=== PATIENT | male | born 1950 | race African-American/Black ===

== ENCOUNTER 2019-09-27 01:56 | Inpatient (IN) ==
--- NOTE | 2019-09-27 02:26 | PROVIDER DOCUMENTATION ---
HPI-General Adult - General Chief Complaint: Altered Mental Status Stated Complaint: ams Time Seen by Provider: 09/27/19 01:59 Source: patient, family Allergies/Adverse Reactions: Patient Allergies Allergy/AdvReac Type Severity Reaction Status Date / Time cephalexin [From Keflex] Allergy ITCHING Verified 09/27/19 03:52 Home Medications: Home Medication List Medication Instructions Recorded Confirmed Last Taken Type Gabapentin 800 mg PO TID 04/30/17 09/27/19 09/26/19 History Allopurinol 100 mg PO DAILY 09/27/19 09/27/19 09/26/19 History Aspirin 81 mg PO DAILY 09/27/19 09/27/19 09/26/19 History Atorvastatin Calcium 20 mg PO DAILY 09/27/19 09/27/19 09/26/19 History Carvedilol [Coreg] 12.5 mg PO DAILY 09/27/19 09/27/19 09/26/19 History Hydralazine [Apresoline] 25 mg PO TID 09/27/19 09/27/19 09/26/19 History Isosorbide Mononitrate E.r. [Imdur] 1 tab PO DAILY 09/27/19 09/27/19 09/26/19 History Pantoprazole Sodium [Protonix] 40 mg PO DAILY 09/27/19 09/27/19 09/26/19 History Pramipexole Di-HCl [Pramipexole 1 tab PO DAILY 09/27/19 09/27/19 09/26/19 History Dihydrochloride] Quetiapine [Seroquel] 50 mg PO QHS 09/27/19 09/27/19 09/26/19 History Sacubitril/Valsartan [Entresto 24 1 tab PO BID 09/27/19 09/27/19 09/26/19 History mg-26 mg Tablet] Tamsulosin [Flomax] 0.4 mg PO DAILY 09/27/19 09/27/19 09/26/19 History Ticagrelor [Brilinta] 90 mg PO BID 09/27/19 09/27/19 09/26/19 History Torsemide 10 mg PO DAILY 09/27/19 09/27/19 09/26/19 History - History of Present Illness -Gen Adult Nature of Presenting Problems: Patient brought in by EMS due to confusion and altered mental status. Patient denies any current symptoms except for an abrasion to his right chest from last week. His daughter states that he was well this morning, but this evening he became acutely forgetful, including not knowing where the bathroom in the house was. He also tried to wander out at night. She denies him having any recent fever, or other symptoms. Review of Systems - Adult - REVIEW OF SYSTEMS - ADULT ROS:: ROS per family Constitutional: reports: no symptoms reported Eyes: reports: no symptoms reported Ears, Nose, Mouth & Throat: reports: no symptoms reported Cardiovascular: reports: no symptoms reported Respiratory: reports: no symptoms reported Gastrointestinal: reports: no symptoms reported Genitourinary: reports: no symptoms reported Musculoskeletal: reports: no symptoms reported Integumentary: reports: no symptoms reported Neurological: reports: no symptoms reported (except as reported on HPI) Psychiatric: reports: no symptoms reported (except as reported on HPI) Endocrine: reports: no symptoms reported Hematologic/Lymphatic: reports: no symptoms reported Allergic/Immunologic: reports: no symptoms reported All Other Systems: Reviewed and Negative Past History - Adult - PAST MEDICAL HISTORY-ADULT Review of Records: reports: Old Records Reviewed Physical Exam-General - PHYSICAL EXAM-ADULT Initial Vital Signs Reviewed: Yes - CONSTITUTIONAL General Appearance: appears well, alert, no apparent distress - EYES Eyes: PERRL/EOMI, pink conjunctivae - HEAD, EARS, NOSE, MOUTH & THROAT HENMT: normocephalic/atraumatic, moist mucous membranes - NECK Neck: non-tender, full range of motion - RESPIRATORY Respiratory: chest non-tender, lungs clear - CARDIOVASCULAR Cardiovascular: normal peripheral pulses, regular rate, rhythm. negative: no edema (bilat LE brawny edema) - GASTROINTESTINAL (ABDOMEN) Abdominal Exam: non tender, soft - LYMPHATIC Lymphatic: no adenopathy - MUSCULOSKELETAL Back Exam: normal inspection, no CVA tenderness Extremity: normal range of motion, non-tender - SKIN Integumentary: normal color, other (right flank poorly healing abrasion) - NEUROLOGIC Neurologic: water valve mechanic II-XII nml as tested, grossly normal, no motor/sensory deficits, other (bilat pill rolling tremor L>R) - PSYCHIATRIC Psych/Mental Status: disoriented x 3. negative: normal mood/affect (flat), normal thought content, oriented x 3 (confused), paranoid Progress - PLAN OF CARE/RESULTS Progress/Plan/Lab Results: Vital Signs - 8 hr 09/27/19 02:02 Temperature 98.9 F Pulse Rate 87 Respiratory Rate 20 Blood Pressure 188/97 O2 Sat by Pulse Oximetry 98 Orders Category Date Time Status Finger Stick Blood Sugar (ED) DIRECTED Care 09/27/19 02:11 Active Nursing- Obtain EKG once Care 09/27/19 02:11 Active CHEST-PORTABLE [RAD] Stat Exams 09/27/19 02:[address] HEAD W/O CONTRAST [CT] Stat Exams 09/27/19 02:12 Ordered ALCOHOL BLOOD Stat Lab 09/27/19 02:15 Ordered AMMONIA [CHEM] Stat Lab 09/27/19 02:19 Ordered CBC WITH ELECTRONIC DIFF [HEME] Stat Lab 09/27/19 02:15 Ordered COMPREHENSIVE METABOLIC PANEL [CHEM] Stat Lab 09/27/19 02:15 Ordered MAGNESIUM [CHEM] Stat Lab 09/27/19 02:15 Ordered PROTIME WITH INR [COAG] Stat Lab 09/27/19 02:15 Ordered PTT [COAG] Stat Lab 09/27/19 02:15 Ordered TROPONIN T Stat Lab 09/27/19 02:15 Ordered URINALYSIS W/POSS RFLX CULT [URINALYSIS] Stat Lab 09/27/19 02:11 Uncollected Upon reeval, patient was unchanged. Still appears confused, but in no distress. CT head: no acute findings per radiologist CXR: no acute process on prelim by EDMD 0600: d/w Dr. John with plan for admission. he requested an ABG, UDS and CT Thorax w/o contrast. Result Diagrams: 09/27/19 03:20 09/27/19 03:20 - EKG 1 EKG Interpretation (*Must complete 3 of following elements*): Abnormal Rate: 88 Rhythm: atrial fib [place]: left (no ectopy) Departure - Departure Date of Disposition Decision: 09/27/19 Time of Disposition Decision: 06:00 DIAGNOSIS: Atrial fibrillation with controlled ventricular rate Altered mental state Qualifiers: Altered mental status type: disorientation Qualified Code(s): R41.0 - Disorientation, unspecified Disposition: ADMITTED INPATIENT 09 Certified Medical Emergency: Emergent Condition: Serious Referrals and Follow-Ups: None,PCP [Primary Care Provider] - - Critical Care Note This patient required my direct & personal management of CC.: No Attestation - Physician/ HANG Attestation Patient care was provided by Advanced Practice Provider:: No The physician spent face to face time with patient:: Yes Advanced Practice Provider documentation review:: Supervising physician onsite and consulted in the evaluation and care of this patient. The physician did have a face to face encounter with the patient.
[2019-09-27 03:30] LABS: URINE SOURCE CLEAN CATCH
[2019-09-27 03:33] LABS: BASO# 0.02 X1000 (0.0-0.2); BASO% 0.3 % (0.0-0.8); EOS# 0.14 X1000 (0.0-0.7); EOS% 1.9 % (0.0-10.0); HEMOGLOBIN 9.7 g/dL (14.0-18.0); LYMPH% 13.3 % (20.5-51.1); MCH 31.3 PG (27-31); MCHC 32.3 g/dL (33-37); MCV 96.8 FL (81-99); MONO# 0.59 X1000 (0.11-0.59); MONO% 7.9 % (1.7-9.3); MPV 12.7 FL (7.4-10.4); NEUT# 5.76 X1000 (1.4-6.5); NEUT% 76.6 % (42.2-75.2); PLT 170 X1000 (130-400); RDW 14.5 % (11.5-14.5); WBC 7.51 X1000 (4.8-10.8)
[2019-09-27 03:34] LABS: BILIRUBIN URINE NEGATIVE (NEGATIVE); BLOOD URINE MODERATE (NEGATIVE); COLOR YELLOW; GLUCOSE URINE NEGATIVE (NEGATIVE); KETONE URINE 20 mg/dL (NEGATIVE); LEUKOCYTES URINE NEGATIVE (NEGATIVE); NITRITE URINE NEGATIVE (NEGATIVE); PH URINE 6.5; PROTEIN URINE >600 mg/dL (NEGATIVE); SP GRAVITY URINE 1.024; TURBIDITY URINE CLEAR (CLEAR); UROBILINOGEN URINE 2 mg/dL (NORMAL)
[2019-09-27 03:35] LABS: UR EPITHELIAL CELLS <10 /HPF (<10); URINE BACTERIA NEGATIVE /HPF; URINE RBC 20-40 /HPF (<10); URINE WBC <10 /HPF (<10)
[2019-09-27 03:40] LABS: INR 1.32; PROTIME 16.6 Seconds (11.0-16.0)
[2019-09-27 03:41] LABS: PTT 35.2 Seconds (22.3-41.8)
[2019-09-27 04:09] LABS: ALB/GLOB RATIO 1.3; ALBUMIN 3.6 g/dL (3.5-5.0); CALCIUM 9.2 mg/dL (8.8-10.2); CREATININE 1.5 mg/dL (0.7-1.2); MAGNESIUM 1.7 mg/dL (1.5-2.7); POTASSIUM 3.9 mmol/L (3.5-5.1); TOTAL BILIRUBIN 1.28 mg/dL (0.20-1.00); TOTAL PROTEIN 6.4 g/dL (6.3-8.3)
[2019-09-27 06:09] LABS: ALLEN TEST YES; BLOOD TYPE ARTERIAL; HCO3-(ACT) 23.3 mmoll (20.0-26.0); METHB 1.3 % (0.0-1.5); MODALITY ROOM AIR; O2(CT) 12.5 mL/dL (15.0-23.0); O2HB 94.7 % (95.0-99.0); PCO2(98.6) 33 mmHg (35-45); PO2(98.6) 76 mmHg (60-100); SAMPLE BLOOD; SAO2 97.8 % (95.0-100.0); THB 9.3 g/dL (11.5-17.4); pH(98.6) 7.43 (7.35-7.45)
--- NOTE | 2019-09-27 06:51 | Diag Imaging Result Doc PS360 ---
CT HEAD W/O CONTRAST - 09/27/2019 INDICATION: ams COMPARISON: None FINDINGS: The ventricles and sulci are normal in size and contour. No intracranial mass or hemorrhage. There is mild periventricular white matter chronic microvascular ischemia in the cerebral hemispheres, notably in the parietal lobes. The skull is intact. There are several bilateral mucosal retention cysts in the maxillary sinuses. No air-fluid levels. Small punctate metallic foreign bodies throughout the superior scalp. IMPRESSION: No acute disease. This exam was performed using automated exposure control, adjustment of mA or kV according to patient size, and/or use of iterative reconstruction technique Electronically signed by Von Schneider 09/27/2019 6:49 AM
--- NOTE | 2019-09-27 08:04 | Diag Imaging Result Doc PS360 ---
CT THORAX W/O CONTRAST - 09/27/2019 INDICATION: right base COMPARISON: None FINDINGS: There is no adenopathy. There is mild cardiomegaly. There is extensive, triple-vessel calcified coronary artery disease. There is some bulkiness of the left adrenal gland. Otherwise upper abdominal images are normal. There is a moderate right and trace left pleural effusion. There is hazy interstitial pulmonary edema in the lung bases with smooth intralobular septal thickening as well. Airways are clear. There are moderate degenerative changes of the spine. No acute or suspicious bony lesion. IMPRESSION: Congestive heart failure. Bilateral pleural effusions right greater than left. This exam was performed using automated exposure control, adjustment of mA or kV according to patient size, and/or use of iterative reconstruction technique Electronically signed by Von Schneider 09/27/2019 8:02 AM
--- NOTE | 2019-09-27 08:04 | Diag Imaging Result Doc PS360 ---
CHEST-PORTABLE - 09/27/2019 INDICATION: ams COMPARISON: 04/30/2017 FINDINGS: There is cardiomegaly and pulmonary vascular congestion. There is central interstitial pulmonary edema. There are small bilateral pleural effusions right greater than left. IMPRESSION: Congestive heart failure. Electronically signed by Von Schneider 09/27/2019 8:02 AM
[2019-09-27] MEDS ORDERED: TYLENOL PO PRN (08:48)
[2019-09-27] MEDS ORDERED: ZOFRAN IV PRN (08:48)
[2019-09-27] MEDS ORDERED: ZYLOPRIM PO SCH (09:00)
[2019-09-27] MEDS ORDERED: NEURONTIN PO SCH (09:00)
[2019-09-27] MEDS ORDERED: DEMADEX PO SCH (09:00)
[2019-09-27] MEDS ORDERED: LASIX IV ONE (10:46)
--- NOTE | 2019-09-27 10:48 | EKG Report ---
Test Performed on : 09/27/2019 02:13:25 AM Test Reason : ED. NO EKG ORDER FOR MUSE Blood Pressure : / mmHG Vent. Rate : 088 BPM Atrial Rate : 097 BPM P-R Int : 000 ms QRS Dur : 086 ms QT Int : 396 ms P-R-T Axes : 000 -50 059 degrees QTc Int : 479 ms Atrial fibrillation. with premature ventricular or aberrantly conducted complexes. Left axis deviation Anterior infarct , age undetermined Abnormal ECG No previous ECGs available Unconfirmed Result
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
[2019-09-27 12:09] LABS: IRON SATURATION 24 %; TIBC 168 ug/dL; TOTAL IRON 41 ug/dL (53-167); UNBOUND IRON 127 ug/dL (112-346)
[2019-09-27] MEDS: PRAMIPEXOLE DI HCL PO SCH (12:10)
[2019-09-27] MEDS: COREG PO SCH ×2 (12:10→22:12)
[2019-09-27] MEDS: ASPIRIN PO SCH (12:10)
[2019-09-27] MEDS: FLOMAX PO SCH (12:10)
[2019-09-27] MEDS: APRESOLINE PO SCH ×3 (12:10→18:18)
[2019-09-27] MEDS: BRILINTA PO SCH ×2 (12:10→22:12)
[2019-09-27] MEDS: IMDUR PO SCH (12:11)
[2019-09-27] MEDS: PROTONIX PO SCH (12:11)
[2019-09-27] MEDS: ENTRESTO 24 MG-26 MG TABLET PO SCH ×2 (12:18→22:12)
[2019-09-27 12:22] LABS: HEMOGLOBIN A1C 7.6 % (4.8-6.0)
[2019-09-27 12:41] LABS: FREE T4 1.59 ng/dL (0.93-1.70); TSH 2.99 uIUmL (0.27-4.20)
[2019-09-27 12:49] LABS: FERRITIN 278 ng/mL (30-400)
--- NOTE | 2019-09-27 14:32 | ECHO REPORT ---
ORDER DATE: 09/27/2019 INTERPRETING PHYSICIAN: Dr. Alli Mahan. ECHOCARDIOGRAPHIC MEASUREMENTS: 1. Interventricular septum 1.3. 2. Left ventricular diastolic diameter 5.7. 3. Left atrium 4.0. 4. Aorta 2.5. SUMMARY OF THE 2-DIMENSIONAL IMAGIN. Aortic valve leaflets are sclerosed, trileaflet. 2. Pulmonic valve is normal. 3. Mitral valve is normal. 4. Tricuspid valve is normal. 5. Technically suboptimal study. 6. Right ventricle is dilated with reduced right ventricular systolic function. 7. There is mild mitral regurgitation. 8. Mild tricuspid regurgitation. 9. Peak velocity across the aortic valve less than 2 m/sec. There is no aortic stenosis or regurgitation. 10. Left ventricle appears to be dilated with reduced left ventricular systolic function. Endocardium not well visualized in all views. Estimated ejection fraction of 35% to 40%. There is anteroseptal hypokinesis associated with diastolic dysfunction. Would recommend a MUGA scan or Optison scan for better evaluating left ventricular systolic function. 11. Peak velocity across the tricuspid valve was 3.7 m/sec. 12. Pulmonary artery systolic pressure of 60 mmHg. There is pulmonary arterial hypertension. 13. There is no pericardial effusion or obvious intracardiac mass or thrombus seen. cc: MD Jennifer Romano CRNP
[2019-09-27 15:24] LABS: UR AMPHETAMINES QUAL NONE DETECTED (NONE DETECT); UR BARBITUATES QUAL NONE DETECTED (NONE DETECT); UR BENZODIAZEPIN QUAL NONE DETECTED (NONE DETECT); UR CANNABINOIDS QUAL NONE DETECTED (NONE DETECT); UR COCAINE QUAL NONE DETECTED (NONE DETECT); UR CREAT RANDOM 144.6 mg/dL (14-26); UR METHADONE QUAL NONE DETECTED (NONE DETECT); UR OPIATES QUAL NONE DETECTED (NONE DETECT); UR OXYCODONE QUAL NONE DETECTED (NONE DETECT); UR PCP QUAL NONE DETECTED (NONE DETECT)
--- NOTE | 2019-09-27 16:44 | Diag Imaging Result Doc PS360 ---
US RENAL 2 (RETROPER) COMPLETE - 09/27/2019 INDICATION: porter and please include the bladder TECHNIQUE: COMPARISON: None FINDINGS: There are bilateral simple renal cysts. This measures 4.6 x 4.1 cm on the right side and two 7 m on the left side. No hydronephrosis. No renal mass. The right kidney measures 12.2 x 6.6 x 6.3 cm. The left kidney measures 11.5 x 6.1 x 6.5 cm. Cortex measures about 1 cm bilaterally. The urinary bladder volume is 283 mL. The urinary bladder is normal and contains clear urine. IMPRESSION: Bilateral benign renal cysts. Otherwise negative. Electronically signed by Von Schneider 09/27/2019 4:41 PM
[2019-09-27 17:23] LABS: URINE SOURCE CATH
[2019-09-27 17:27] LABS: BILIRUBIN URINE NEGATIVE (NEGATIVE); BLOOD URINE SMALL (NEGATIVE); COLOR YELLOW; GLUCOSE URINE NEGATIVE (NEGATIVE); KETONE URINE NEGATIVE (NEGATIVE); LEUKOCYTES URINE NEGATIVE (NEGATIVE); NITRITE URINE NEGATIVE (NEGATIVE); PH URINE 5.5; PROTEIN URINE 100 mg/dL (NEGATIVE); TURBIDITY URINE CLEAR (CLEAR); UROBILINOGEN URINE NORMAL (NORMAL)
[2019-09-27 18:24] LABS: UR EPITHELIAL CELLS <10 /HPF (<10); URINE BACTERIA NEGATIVE /HPF; URINE RBC <10 /HPF (<10); URINE WBC <10 /HPF (<10)
--- NOTE | 2019-09-27 20:08 | HISTORY AND PHYSICAL ---
ADDENDUM: I have seen and examined Mr. Victor today. The daughter was at the bedside at the time of the encounter. Apparently, Mr. Victor is known to have coronary artery disease, status post stents. Follows up with a hat blocking operator in [place]. Has been having some swelling of the lower extremity. Uses walker/cane for the most part to ambulate. According to the daughter, Mr. Victor had been fairly stable, spent the holidays at the sister's house, and came home 3 days ago where he was noted to be swelling. Last night, he was found wandering in the house and making certain utterances that seemed he was completely confused. This morning, at the time of the encounter, he was not able to recognize the daughter. He did not know where he was. He did not know the time and the date of today. OBJECTIVE: Vital signs: Blood pressure is currently 153/77, pulse of 77, respirations 20, temperature 97.2 degrees. Patient was saturating 96% on room air. General: Mr. Victor is a 69- year-old gentleman. He is in bed. He looks puffy. HEENT: Mucosa is pink and moist. Neck: Supple. There is positive JVD. Chest: Air entry is bilaterally reduced. There are crackles in posterior lung randall. Cardiovascular: Irregularly irregular, but rate controlled. GI: Abdomen is soft. Some edema on the lateral aspect of the abdominal wall. Extremities: About 3+ pedal edema. AUTOGRAPHER: Patient is awake, alert, oriented to person, but disoriented to time and to place. LABORATORY DATA: Has also been reviewed. There is a normocytic anemia. White cell count is normal. Platelet count is normal. INR is 1.32. ABG is unremarkable. Chemistry shows slight hyponatremia, mild non gap acidosis, creatinine of 1.5, A1c of 7.6. The patient's proBNP is 28,035. Urinalysis shows positive protein more than 600. IMAGING STUDIES: Done so far showed a chest x-ray with congestive heart failure. CT scan of the head showed no acute disease. A CT scan of the chest showed congestive heart failure, bilateral pleural effusions, right greater than left, but no evidence of pneumonia. A right renal ultrasound showed bilateral benign cysts, otherwise negative. Echocardiogram has shown ejection fraction of 35 to 40 percent, but there is some hypokinesis with diastolic dysfunction. There is severe bilateral ventricular failure. Venous congestion study shows no DVT or thrombosis of the lower extremities. ASSESSMENT: 1. Acute confusional state of unclear etiology. So far, neuroimaging, including a CT scan of the head, has been unremarkable. There is not a whole lot in his chemistry to explain his current altered mental status. Presentation consistent with global encephalopathy, related to medications versus underlying occult infection. Urinalysis seems to be fairly unremarkable. Cultures of both blood and urine are pending. We will get an MRI also to rule out any other pathology that a CAT scan could not unveil. We are also going modify his medications, including the gabapentin, which he is currently on 800 mg 3 times per day to just 200 to see if it is causing some of his current altered mentation. 2. Congestive heart failure. Ejection fraction is 35 to 40 percent with some left ventricular inferior wall abnormality. We will get Cardiology to evaluate. 3. History of coronary artery disease, status post stents. 4. Severe biventricular failure. 5. History of Parkinson disease. 6. Renal failure, most likely chronic due to diabetic nephropathy. 7. Significant proteinuria on the urinalysis, presumably from diabetic nephropathy. I think, at some point, patient will need to have a 24 hour urine study to rule out nephrotic syndrome. 8. Diabetes mellitus. Will continue with insulin regimen. 9. History of Parkinson disease. Patient is on pramipexole. For now, we are going to do blood cultures, urine cultures to rule out any possible infectious etiology for his current altered mental status. We have made some changes to his psychotropic medications. We are going to get an MRI of the brain in the morning, and he has been started on his home medications, and we will get Cardiology to evaluate him for the presumed acute onset congestive heart failure. Plan discussed with Daughter. cc: Jermaine De Leon MD [facility]
[2019-09-27] MEDS ORDERED: SEROQUEL PO SCH (21:00)
[2019-09-27] MEDS: LASIX IV SCH (22:11)
[2019-09-27] MEDS: LIPITOR PO SCH (22:12)
[2019-09-27] MEDS: NEURONTIN PO SCH (22:12)
[2019-09-28] MEDS: PROTONIX PO SCH (06:25)
--- NOTE | 2019-09-28 07:27 | EKG Report ---
Test Performed on : 09/28/2019 07:11:18 AM Test Reason : afib Blood Pressure : / mmHG Vent. Rate : 075 BPM Atrial Rate : 066 BPM P-R Int : 176 ms QRS Dur : 092 ms QT Int : 420 ms P-R-T Axes : 024 -13 -84 degrees QTc Int : 469 ms Sinus rhythm. with marked sinus arrhythmia. with occasional premature ventricular complexes. Septal infarct (cited on or before 27-SEP-2019) Abnormal ECG When compared with ECG of 27-SEP-2019 02:13, (Unconfirmed) Sinus rhythm. has replaced Atrial fibrillation. QRS axis shifted right Nonspecific T wave abnormality now evident in Inferior leads Nonspecific T wave abnormality, worse in Lateral leads Confirmed by Reynaldo HEAD, Krishna ([id number]) on 09/28/2019 9:03:38 AM
[2019-09-28 08:16] LABS: CALCIUM 8.2 mg/dL (8.8-10.2); CREATININE 1.5 mg/dL (0.7-1.2); MAGNESIUM 1.6 mg/dL (1.5-2.7); TOTAL BILIRUBIN 1.16 mg/dL (0.20-1.00); TOTAL PROTEIN 5.9 g/dL (6.3-8.3)
[2019-09-28 08:19] LABS: BASO# 0.01 X1000 (0.0-0.2); BASO% 0.2 % (0.0-0.8); EOS# 0.26 X1000 (0.0-0.7); EOS% 4.5 % (0.0-10.0); HEMATOCRIT 26.2 % (42.0-52.0); HEMOGLOBIN 8.6 g/dL (14.0-18.0); LYMPH# 0.99 X1000 (1.2-3.4); LYMPH% 17.3 % (20.5-51.1); MCH 31.4 PG (27-31); MCHC 32.8 g/dL (33-37); MCV 95.6 FL (81-99); MONO% 10.5 % (1.7-9.3); NEUT# 3.86 X1000 (1.4-6.5); NEUT% 67.5 % (42.2-75.2); PLT 163 X1000 (130-400); RBC 2.74 XMIL (4.7-6.1); RDW 14.2 % (11.5-14.5); WBC 5.72 X1000 (4.8-10.8)
[2019-09-28] MEDS: NEURONTIN PO SCH ×3 (08:46→21:27)
[2019-09-28] MEDS: COREG PO SCH ×2 (08:47→21:27)
[2019-09-28] MEDS: BRILINTA PO SCH ×2 (08:47→21:27)
[2019-09-28] MEDS: APRESOLINE PO SCH ×3 (08:47→18:46)
[2019-09-28] MEDS: ASPIRIN PO SCH (08:47)
[2019-09-28] MEDS: IMDUR PO SCH (08:47)
[2019-09-28] MEDS: ENTRESTO 24 MG-26 MG TABLET PO SCH ×2 (08:47→21:27)
[2019-09-28] MEDS: FLOMAX PO SCH (08:47)
[2019-09-28] MEDS: PRAMIPEXOLE DI HCL PO SCH (08:51)
--- NOTE | 2019-09-28 09:23 | Diag Imaging Result Doc PS360 ---
EXAM: MRI BRAIN W/WO CONTRAST 09/27/2019 HISTORY: acute confusional state TECHNIQUE: T1 sagittal, axial and post gadolinium-enhanced axial with coronal reformation, T2, FLAIR, DWI axial and coronal gradient echo. COMMENT: There are encephalomalacic changes present in the right cerebellar hemisphere. There are patchy and punctate areas of increased T2-weighted signal intensity in the white matter both hemispheres particularly adjacent to the atria of the lateral ventricles. There are no previous MRI studies available for comparison. There is no evidence of restricted diffusion. There is no evidence of mass effect, bleed, or abnormal extra-axial fluid collection. No abnormal gadolinium enhancement is present. IMPRESSION: Chronic ischemic changes. No evidence of acute disease. Electronically signed by Masood Maria 09/28/2019 9:21 AM
[2019-09-28] MEDS: LASIX IV SCH ×2 (09:52→21:27)
[2019-09-28] MEDS ORDERED: KLOR-CON PO ONE (11:31)
[2019-09-28] MEDS: 1/2 NS 1,000 ML IV SCH (12:00)
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
--- NOTE | 2019-09-28 18:56 | CONSULTATION ---
DATE OF CONSULTATION: 09/28/2019 IMPRESSION: 1. Acute on chronic biventricular systolic heart failure. 2. Cardiomyopathy with left ejection fraction 35 to 40 percent. 3. Atherosclerotic coronary disease with previous coronary angioplasty/stent to left circumflex coronary. 4. Moderate to severe pulmonary hypertension. 5. Chronic atrial fibrillation. 6. Parkinson disease. 7. Altered mental status as primary presenting symptom. The patient appears encephalopathic and this potentially may be related to decompensated congestive heart failure among other etiologies. 8. Type 2 diabetes mellitus. 9. Previous smoking discontinued 3 years ago. RECOMMENDATIONS: 1. Agree with plans to diurese with IV Lasix. 2. Continue Entresto. 3. Continue Coreg. 4. Continue Brilinta and aspirin. HISTORY: This 69-year-old male with past history of congestive heart failure, chronic atrial fibrillation, atherosclerotic coronary disease and angioplasty/stenting of left circumflex coronary with drug-eluting stent, moderate to severe pulmonary hypertension and type 2 diabetes mellitus was admitted with altered mental status. Family brought him into the emergency room yesterday reporting confusion, urinary incontinence and weakness. He was found to have signs of decompensated congestive heart failure. For this reason, Cardiology was consulted. He is presently confused and does not contribute much to the history although he does awaken from his drowsiness and respond to questions. He is not oriented to person, place, or time. PAST MEDICAL HISTORY: 1. Cardiomyopathy with left ejection fraction 35 to 40 percent. 2. Moderate to severe pulmonary hypertension. 3. Atherosclerotic coronary disease and previous coronary angioplasty/stenting of left circumflex coronary with drug-eluting stent. 4. Hypertension. 5. Hyperlipidemia. 6. Type 2 diabetes mellitus. 7. Gastroesophageal reflux disease. 8. Parkinson disease. 9. Gout. PAST SURGICAL HISTORY: Includes unspecified right forearm surgery, unspecified right leg surgery, previous coronary angioplasty/stenting of left circumflex coronary with drug-eluting stent. ALLERGIES: He is allergic or intolerant to cephalexin. CURRENT MEDICATIONS: As listed. SOCIAL HISTORY: He is and lives at home with family. He ambulates with aid of walker and at times with a cane. He has history of longstanding cigarette use but discontinued this over 20 years ago. FAMILY HISTORY: Negative for premature coronary disease. REVIEW OF SYSTEMS: Not reliably obtainable given patient's confusion. PHYSICAL EXAMINATION: General: This is a overweight older -D[place] male in no distress. Vital signs: Blood pressure 146/59, heart rate 63. HEENT: Extraocular movements intact. Mucous membranes appear somewhat dry. Neck: Supple with jugular venous distention evident consistent with elevated central venous pressure. There are no carotid bruits. Auscultation of the chest reveals diminished breath sounds in the bases bilaterally. Cardiac: Reveals a irregular rate and rhythm without appreciable murmur or gallop. Abdomen: Soft. Bowel sounds are normal. Extremities: Demonstrate 3+ edema in lower extremities bilaterally with chronic venous stasis changes. Neurologic: Reveals him to be somewhat drowsy but arouses readily to verbal stimuli. He attempts to answer questions but is clearly confused and not oriented to place or time. Speech is fluent. He moves all 4 extremities equally well. DATA: Twelve lead EKG demonstrates atrial fibrillation with occasional premature ventricular aberrantly conducted complexes, left axis deviation and abnormal precordial R-wave progression, cannot exclude previous anterior infarct of undetermined age. LABORATORY DATA: Includes sodium 146, potassium 3.0, chloride 107, carbon dioxide 23, BUN 31, creatinine 1.5, glucose 169. Hematocrit 26.2, hemoglobin 8.6, white blood cell count 5.7, platelet count 163,000, pro time 16.6, INR 1.32. TSH 2.99, magnesium 1.6, hemoglobin A1c 7.6. cc: Shad Buchanan MD
--- NOTE | 2019-09-28 19:46 | Extremity Venous Study ---
PROCEDURE NAME: Venous U/S Bilateral Legs - 09/27/2019 REQUESTING PROVIDER: AFTAB Mathias. LOAN REVIEW ANALYST: Victor Manuel. INDICATIONS: Edema in legs. EQUIPMENT: [employer] Vivid E9 ultrasound system with a 9L-D transducer. FINDINGS: Images of the bilateral lower extremity venous systems were obtained in both sagittal and transverse planes. Doppler was used to evaluate veins for spontaneity, phasicity, respiratory excursion, and digital augmentation. Results: Normal venous compression, normal venous flow. No obvious superficial or deep venous thrombosis noted INTERPRETATION: Essentially normal bilateral lower extremity venous study. cc: MD Jennifer Farooq CRNP
[2019-09-28] MEDS: LIPITOR PO SCH (21:27)
[2019-09-29] MEDS: PROTONIX PO SCH (06:34)
[2019-09-29 07:56] LABS: BASO# 0.01 X1000 (0.0-0.2); BASO% 0.1 % (0.0-0.8); EOS# 0.19 X1000 (0.0-0.7); EOS% 2.8 % (0.0-10.0); HEMATOCRIT 28.2 % (42.0-52.0); HEMOGLOBIN 9.2 g/dL (14.0-18.0); LYMPH# 0.93 X1000 (1.2-3.4); LYMPH% 13.6 % (20.5-51.1); MCH 31.6 PG (27-31); MCHC 32.6 g/dL (33-37); MCV 96.9 FL (81-99); MONO# 0.51 X1000 (0.11-0.59); MONO% 7.4 % (1.7-9.3); NEUT# 5.22 X1000 (1.4-6.5); NEUT% 76.1 % (42.2-75.2); PLT 177 X1000 (130-400); RBC 2.91 XMIL (4.7-6.1); RDW 14.4 % (11.5-14.5); WBC 6.86 X1000 (4.8-10.8)
[2019-09-29 08:08] LABS: ALBUMIN 3.1 g/dL (3.5-5.0); CALCIUM 8.3 mg/dL (8.8-10.2); CREATININE 1.7 mg/dL (0.7-1.2); MAGNESIUM 1.4 mg/dL (1.5-2.7); POTASSIUM 3.3 mmol/L (3.5-5.1); TOTAL BILIRUBIN 0.95 mg/dL (0.20-1.00); TOTAL PROTEIN 6.3 g/dL (6.3-8.3)
[2019-09-29] MEDS: ENTRESTO 24 MG-26 MG TABLET PO SCH ×2 (08:28→21:56)
[2019-09-29] MEDS: 1/2 NS 1,000 ML IV SCH ×2 (08:28→19:30)
[2019-09-29] MEDS: KLOR-CON PO SCH (08:28)
[2019-09-29] MEDS: IMDUR PO SCH (08:28)
[2019-09-29] MEDS: LASIX IV SCH (08:28)
[2019-09-29] MEDS: NEURONTIN PO SCH ×3 (08:29→21:56)
[2019-09-29] MEDS: FLOMAX PO SCH (08:29)
[2019-09-29] MEDS: BRILINTA PO SCH ×2 (08:29→21:56)
[2019-09-29] MEDS: PRAMIPEXOLE DI HCL PO SCH (08:29)
[2019-09-29] MEDS: APRESOLINE PO SCH ×3 (08:29→21:00)
[2019-09-29] MEDS: COREG PO SCH ×2 (08:29→21:56)
[2019-09-29] MEDS: ASPIRIN PO SCH (08:29)
[2019-09-29] MEDS ORDERED: POTASSIUM PHOSPHATE 40 MEQ in NS 250 ML IV ONE (08:36)
[2019-09-29] MEDS ORDERED: DEMADEX PO SCH (09:00)
[2019-09-29] MEDS ORDERED: MAGNESIUM SULFATE 2 GM/S.W.I. 2 GM/50 ML IVPB IV ONE (14:49)
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
[2019-09-29] MEDS: LOVENOX SUBQ SCH (21:00)
[2019-09-29] MEDS: LIPITOR PO SCH (21:57)
[2019-09-30] MEDS: PROTONIX PO SCH (06:42)
--- NOTE | 2019-09-30 07:25 | PROGRESS NOTE ---
DATE: 09/29/2019 SUBJECTIVE: Patient denies shortness of breath on supplemental oxygen per nasal cannula. He has not had any chest discomfort. His confusion seems to be improving progressively. He is oriented to person, place, but not to the year. OBJECTIVE: Vital Signs: Blood pressure 141/56. Heart rate ranges from 75 to 120 beats per minute with ECG monitor showing atrial fibrillation. Jugular venous distention is evident suggesting elevated central venous pressure. Chest: Auscultation of the chest reveals diminished breath sounds at the bases. Cardiac: Reveals an irregular rate and rhythm without appreciable murmur or gallop. Extremities: Demonstrate moderate to severe lower extremity edema. LABORATORY DATA: Includes a white blood cell count of 6.86, hematocrit 28.2, hemoglobin 9.2, platelet count 177,000. Sodium 141, potassium 3.3, chloride 102, carbon dioxide 24, BUN 29, creatinine 1.7, glucose 212. Albumin 3.2. IMPRESSION: 1. Acute on chronic biventricular systolic heart failure. 2. Cardiomyopathy with left ventricular ejection fraction of 35 to 40 percent. 3. Atherosclerotic coronary artery disease with previous coronary angioplasty/stenting of left circumflex coronary artery. 4. Moderate to severe pulmonary hypertension. 5. Chronic atrial fibrillation. 6. Parkinson disease. 7. Altered mental status, probably multifactorial with congestive heart failure exacerbation contributing. 8. Type 2 diabetes mellitus. 9. Previous cigarette use, discontinued 3 years ago. RECOMMENDATIONS: 1. Continue to diurese with IV Lasix. 2. Continue current Entresto and Coreg. 3. Review timing of previous coronary angioplasty/stenting and consider altering anticoagulation/antiplatelet regimen. He has a significant [id number] score and in the long run, will be at significant risk for thromboembolic complications from atrial fibrillation. We will consider dropping aspirin and adding anticoagulation. For right now, we will go ahead discontinue aspirin and start patient on Lovenox 1 mg/kg subcutaneously daily. cc: Shad Buchanan MD
[2019-09-30 08:09] LABS: BASO# 0.01 X1000 (0.0-0.2); BASO% 0.1 % (0.0-0.8); EOS% 1.5 % (0.0-10.0); HEMATOCRIT 26.4 % (42.0-52.0); HEMOGLOBIN 8.7 g/dL (14.0-18.0); LYMPH# 0.97 X1000 (1.2-3.4); LYMPH% 14.1 % (20.5-51.1); MCH 31.4 PG (27-31); MCV 95.3 FL (81-99); MONO% 10.2 % (1.7-9.3); MPV 12.8 FL (7.4-10.4); NEUT# 5.11 X1000 (1.4-6.5); NEUT% 74.1 % (42.2-75.2); PLT 166 X1000 (130-400); RBC 2.77 XMIL (4.7-6.1); RDW 14.5 % (11.5-14.5); WBC 6.89 X1000 (4.8-10.8)
[2019-09-30 08:35] LABS: ALB/GLOB RATIO 0.9; CALCIUM 7.8 mg/dL (8.8-10.2); CREATININE 1.7 mg/dL (0.7-1.2); MAGNESIUM 1.8 mg/dL (1.5-2.7); POTASSIUM 3.5 mmol/L (3.5-5.1); TOTAL BILIRUBIN 0.92 mg/dL (0.20-1.00); TOTAL PROTEIN 6.2 g/dL (6.3-8.3)
[2019-09-30] MEDS: KLOR-CON PO SCH (08:48)
[2019-09-30] MEDS: ENTRESTO 24 MG-26 MG TABLET PO SCH ×2 (08:48→20:10)
[2019-09-30] MEDS: APRESOLINE PO SCH ×3 (08:49→20:10)
[2019-09-30] MEDS: PRAMIPEXOLE DI HCL PO SCH (08:49)
[2019-09-30] MEDS: NEURONTIN PO SCH ×3 (08:49→20:09)
[2019-09-30] MEDS: BRILINTA PO SCH ×2 (08:49→20:10)
[2019-09-30] MEDS: FLOMAX PO SCH (08:49)
[2019-09-30] MEDS: IMDUR PO SCH (08:49)
[2019-09-30] MEDS: COREG PO SCH ×2 (08:49→20:10)
[2019-09-30 14:54] LABS: PHOSPHORUS 3.9 mg/dL (2.7-4.5)
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
[2019-09-30] MEDS ORDERED: LASIX IV ONE (18:41)
[2019-09-30] MEDS: LOVENOX SUBQ SCH (20:09)
[2019-09-30] MEDS: LIPITOR PO SCH (20:10)
[2019-09-30] MEDS: 1/2 NS 1,000 ML IV SCH (20:10)
--- NOTE | 2019-09-30 22:20 | CARDIOLOGY PROGRESS NOTE ---
DATE: 09/30/2019 SUBJECTIVE: Mr. Victor denies chest discomfort or shortness of breath on supplemental oxygen per nasal cannula. He appears to be more awake and less confused. OBJECTIVE: Blood pressure 143/59, heart rate 59, oxygen saturation 100%. Jugular venous distention is present consistent with elevated central venous pressure. Auscultation of the chest reveals diminished breath sounds at bases, more so on the right base.Cardiac: Irregular rate and rhythm without appreciable murmur or gallop. Extremities: Moderate pretibial edema. LABORATORY DATA: Includes white blood cell count of 6.9, hematocrit of 26.4, hemoglobin 8.7, platelet count 166,000. Sodium 137, potassium 3.5, chloride 99, carbon dioxide 23, BUN 34, creatinine 1.7, glucose 207, albumin 3.0. IMPRESSION: 1. Acute on chronic biventricular congestive heart failure mostly right-sided. 2. Cardiomyopathy with left ventricular ejection fraction 35 to 40 percent. 3. Atherosclerotic coronary disease with previous myocardial infarction in the past and previous coronary angioplasty/stenting of left circumflex coronary 10/2018. 4. [id number] pulmonary hypertension. Suspect component of cor pulmonale. 5. Chronic atrial fibrillation. 6. Parkinson's disease. 7. Altered mental status, probably multifactorial in origin. 8. Type 2 diabetes mellitus. RECOMMENDATIONS: 1. Diurese further given elevated central venous pressure suggested by exam as well as significant edema. 2. Continue current Entresto and Coreg. 3. Ultimately, patient may benefit from screening for sleep apnea. cc: Shad Buchanan MD MTDD
[2019-10-01] MEDS: PROTONIX PO SCH (06:12)
[2019-10-01 07:20] LABS: BASO# 0.01 X1000 (0.0-0.2); BASO% 0.1 % (0.0-0.8); EOS# 0.12 X1000 (0.0-0.7); EOS% 1.8 % (0.0-10.0); HEMATOCRIT 24.2 % (42.0-52.0); LYMPH# 0.94 X1000 (1.2-3.4); LYMPH% 13.9 % (20.5-51.1); MCH 31.3 PG (27-31); MCHC 33.1 g/dL (33-37); MCV 94.5 FL (81-99); MONO# 0.75 X1000 (0.11-0.59); MONO% 11.1 % (1.7-9.3); MPV 12.6 FL (7.4-10.4); NEUT# 4.95 X1000 (1.4-6.5); NEUT% 73.1 % (42.2-75.2); PLT 158 X1000 (130-400); RBC 2.56 XMIL (4.7-6.1); RDW 14.2 % (11.5-14.5); WBC 6.77 X1000 (4.8-10.8)
[2019-10-01 07:29] LABS: ALB/GLOB RATIO 0.8; ALBUMIN 2.6 g/dL (3.5-5.0); CALCIUM 8.2 mg/dL (8.8-10.2); CREATININE 1.8 mg/dL (0.7-1.2); MAGNESIUM 1.8 mg/dL (1.5-2.7); POTASSIUM 3.2 mmol/L (3.5-5.1); TOTAL BILIRUBIN 0.71 mg/dL (0.20-1.00); TOTAL PROTEIN 5.9 g/dL (6.3-8.3)
[2019-10-01] MEDS ORDERED: LASIX IV ONE ×2 (08:00→17:00)
[2019-10-01] MEDS: COREG PO SCH ×2 (08:14→20:23)
[2019-10-01] MEDS: KLOR-CON PO SCH (08:14)
[2019-10-01] MEDS: PRAMIPEXOLE DI HCL PO SCH (08:14)
[2019-10-01] MEDS: NEURONTIN PO SCH ×3 (08:15→20:22)
[2019-10-01] MEDS: BRILINTA PO SCH ×2 (08:15→20:22)
[2019-10-01] MEDS: APRESOLINE PO SCH ×3 (08:15→16:15)
[2019-10-01] MEDS: IMDUR PO SCH (08:15)
[2019-10-01] MEDS: ENTRESTO 24 MG-26 MG TABLET PO SCH ×2 (08:15→20:23)
[2019-10-01] MEDS: FLOMAX PO SCH (08:15)
[2019-10-01] MEDS: HUMULIN R SUBQ SCH ×2 (16:16→20:23)
[2019-10-01] MEDS: 1/2 NS 1,000 ML IV SCH ×2 (16:20→20:22)
[2019-10-01] MEDS: LIPITOR PO SCH (20:22)
[2019-10-01] MEDS: LOVENOX SUBQ SCH (20:22)
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
--- NOTE | 2019-10-01 22:00 | PROGRESS NOTE ---
DATE: 10/01/2019 SUBJECTIVE: Patient continues without chest discomfort or shortness of breath on room air. He remains in atrial fibrillation with controlled rate. OBJECTIVE: Vital signs: Blood pressure 147/57 to 164/54. Heart rate 58 and regular. Oxygen saturation 97%. Jugular venous distention is present, consistent with elevated central venous pressure. Chest: Auscultation of the chest reveals diminished breath sounds at the bases, right greater than left. Cardiac Exam: Reveals an irregular rate and rhythm without appreciable murmur or gallop. Extremities: Demonstrate moderate pretibial edema with greater degree of edema in distal right lower extremity, with prominent chronic venous stasis changes, right greater than left. LABORATORY DATA: Includes white blood cell count 6.77, hematocrit 24.2, hemoglobin 8.0, platelet count 158,000. Sodium 135, potassium 3.2, chloride 97, carbon dioxide 23, BUN 38, creatinine 1.8, glucose 253. IMPRESSION: 1. Acute on chronic biventricular congestive heart failure, predominantly right-sided, in the setting of moderate to severe pulmonary hypertension and suspected cor pulmonale. 2. Cardiomyopathy, with left ventricular ejection fraction 35 to 40 percent. 3. Atherosclerotic coronary artery disease with previous myocardial infarction in the past, and previous coronary angioplasty and stenting of the left circumflex coronary artery. 4. Chronic atrial fibrillation. 5. Parkinson disease. 6. Altered mental status, probably multifactorial in origin. Patient appears to be improving. 7. Type 2 diabetes mellitus. RECOMMENDATIONS: 1. Continue to diurese cautiously. 2. Continue Entresto and Coreg. 3. Ultimately, the patient may benefit from screening for sleep apnea with sleep study. cc: Shad Buchanan MD
[2019-10-02] MEDS: PROTONIX PO SCH (06:12)
[2019-10-02] MEDS: HUMULIN R SUBQ SCH ×4 (06:12→20:10)
--- NOTE | 2019-10-02 07:05 | Diag Imaging Result Doc PS360 ---
EXAM: CHEST-PORTABLE HISTORY: dyspnea TECHNIQUE: Single view COMPARISON: 09/27/2019 FINDINGS: The lungs are well expanded. The heart is mildly prominent and there is mild vascular distention. No consolidation. Small pleural effusions. IMPRESSION: Stable chest Electronically signed by Ata Harris 10/02/2019 7:02 AM
[2019-10-02 07:37] LABS: BASO# 0.01 X1000 (0.0-0.2); BASO% 0.2 % (0.0-0.8); EOS# 0.17 X1000 (0.0-0.7); EOS% 2.6 % (0.0-10.0); HEMATOCRIT 24.4 % (42.0-52.0); HEMOGLOBIN 8.1 g/dL (14.0-18.0); LYMPH% 12.2 % (20.5-51.1); MCH 31.4 PG (27-31); MCHC 33.2 g/dL (33-37); MCV 94.6 FL (81-99); MONO# 0.66 X1000 (0.11-0.59); MONO% 10.1 % (1.7-9.3); MPV 12.6 FL (7.4-10.4); NEUT% 74.9 % (42.2-75.2); PLT 186 X1000 (130-400); RBC 2.58 XMIL (4.7-6.1); RDW 14.4 % (11.5-14.5); WBC 6.54 X1000 (4.8-10.8)
[2019-10-02 07:47] LABS: ALB/GLOB RATIO 0.7; ALBUMIN 2.4 g/dL (3.5-5.0); CALCIUM 8.2 mg/dL (8.8-10.2); CREATININE 2.1 mg/dL (0.7-1.2); MAGNESIUM 1.9 mg/dL (1.5-2.7); POTASSIUM 3.3 mmol/L (3.5-5.1); TOTAL BILIRUBIN 0.68 mg/dL (0.20-1.00); TOTAL PROTEIN 5.8 g/dL (6.3-8.3)
[2019-10-02] MEDS: COREG PO SCH ×2 (08:28→20:09)
[2019-10-02] MEDS: BRILINTA PO SCH (08:28)
[2019-10-02] MEDS: APRESOLINE PO SCH ×3 (08:28→17:44)
[2019-10-02] MEDS: KLOR-CON PO SCH (08:28)
[2019-10-02] MEDS: FLOMAX PO SCH (08:28)
[2019-10-02] MEDS: PRAMIPEXOLE DI HCL PO SCH (08:28)
[2019-10-02] MEDS: NEURONTIN PO SCH ×3 (08:28→20:09)
[2019-10-02] MEDS: ENTRESTO 24 MG-26 MG TABLET PO SCH ×2 (08:28→20:09)
[2019-10-02] MEDS: IMDUR PO SCH (08:29)
[2019-10-02] MEDS ORDERED: LASIX IV SCH (09:00)
[2019-10-02] MEDS ORDERED: ALBUMIN 25% IV ONE (12:56)
[2019-10-02] MEDS: LIPITOR PO SCH (20:09)
[2019-10-02] MEDS: 1/2 NS 1,000 ML IV SCH (20:09)
[2019-10-02] MEDS: LOVENOX SUBQ SCH (20:10)
--- NOTE | 2019-10-02 21:37 | PROGRESS NOTE ---
DATE: 10/02/2019 SUBJECTIVE: Patient denies shortness of breath or chest discomfort on room air. He does not appear to be confused when I see him today. OBJECTIVE: Blood pressure 121/50, heart rate 110. Oxygen saturation 99% on room air. Jugular venous pressure appears to be normal based on inspection of the neck veins. Auscultation of the chest reveals some diminished breath sounds at bases bilaterally.Cardiac Exam: Reveals an irregular rate and rhythm without appreciable murmur or gallop. There is very mild pretibial edema. LABORATORY DATA: Includes a white blood cell count 6.54, hematocrit 24.4, hemoglobin 8.1, platelet count 186,000. Sodium 135, potassium 3.3, chloride 98, carbon dioxide 20, BUN 41, creatinine 2.1, glucose 187, albumin 2.4. IMPRESSION: 1. Acute on chronic biventricular congestive heart failure predominately right-sided in setting of moderate to severe pulmonary hypertension and suspected cor pulmonale. Patient also has some degree of nephrotic syndrome. Patient's central venous pressure appears to be normal today with further diuresis. Creatinine has increased mildly with diuresis. 2. Cardiomyopathy with left ejection fraction of 35 to 40 percent. 3. Atherosclerotic coronary disease and previous myocardial infarction in the past. Patient is also status post coronary angioplasty/stenting of left circumflex coronary in October 2018. 4. Chronic atrial fibrillation. 5. Nephrotic syndrome. 6. Parkinson disease. 7. Altered mental status probably multifactorial in origin. This appears to be improving. 8. Type 2 diabetes mellitus. RECOMMENDATIONS: 1. Discontinue IV Lasix. 2. Continue Entresto and Coreg as tolerated. 3. Administer intravenous albumin. 4. At this point would switch to Plavix instead of Brilinta. Additionally, at time of discharge would switch him to oral anticoagulant such as Eliquis and continue him on Eliquis and Plavix leaving off aspirin. cc: Shad Buchanan MD
--- NOTE | 2019-10-03 01:19 | PROGRESS NOTE ---
DATE: 10/02/2019 SUBJECTIVE: Mr. Victor refers to be feeling better today. He seems to be more awake. His BUN and creatinine are getting worse, so we will stop the Lasix and I will give him some albumin. Cardiology Department is following this patient. We will continue with the same treatment. His x- ray is stable. It showed small pleural effusion, no consolidation, and his heart is slightly prominent with mild vascular distention. OBJECTIVE: Vital signs: Temperature 100.1 degrees, pulse 110, respiratory rate 18, blood pressure 121/50, oxygen saturation 99% on room air.HEENT: Head normocephalic, no trauma. PERRLA. Neck: Supple. He does have some JVD. Chest: Some scattered crackles, mostly at the bases. Good air entry. Cardiovascular: Irregularly irregular rate and rhythm. He is slightly tachycardic. Abdomen: Soft. He has some wall edema. His abdomen is a little bit protuberant, distended. Positive bowel sounds. Extremities: Lower extremity edema 2+ bilaterally. He has chronic scars on the right lower extremity. Neurological: The patient is awake and alert. He is oriented. He is following basic commands. His answers were slow yesterday but today he seems to be responding faster. As per the patient, he is not able to walk at home, and he told me this yesterday. Now he said that he is able to move a little bit, so I am not quite sure about this information. He also states that he has been using a walker, but not lately. LABORATORY DATA: WBC 6.5, hemoglobin 8.1, hematocrit 24.4, platelets 186,000. Sodium 135, potassium 3.3, chloride 98, bicarbonate 20, BUN 41, creatinine 2.1, glucose 187, calcium 8.2. AST 72, ALT 42, alkaline phosphatase 94, albumin 2.4. ASSESSMENT AND PLAN: 1. Altered mental status on presentation, probably delirium in a patient with baseline dementia. MRI of the head did not show any acute problem. It looks like his mentation is better, and probably this is his baseline. He has been answering all of my questions. 2. Congestive heart failure exacerbation, ejection fraction is 35% to 40%, and actually he has biventricular failure noted. He still has fluid overload, but his kidney function is getting worse with Lasix, which has been stopped for now. He will receive a dose of albumin due to hypoalbuminemia. 3. Hypoalbuminemia as above. 4. History of coronary artery disease, status post stents. Aware. 5. Type 2 diabetes with a hemoglobin A1c of 7.6. Continue with the same management. 6. Suspected [id number] kidney disease. His creatinine today is higher compared with admission and yesterday. He has been receiving Lasix, but we have stopped the treatment because of this increase. He will receive a dose of albumin and we will monitor. 7. Hypernatremia on presentation, resolved. 8. Hypokalemia. Today I will hold the potassium treatment because he is not going to get more Lasix, and his kidney function increased, so probably tomorrow this will be better. cc: Kalpesh Escalante MD
[2019-10-03] MEDS: HUMULIN R SUBQ SCH ×4 (06:02→21:07)
[2019-10-03] MEDS: PROTONIX PO SCH (06:02)
[2019-10-03 07:38] LABS: ALB/GLOB RATIO 0.8; ALBUMIN 2.6 g/dL (3.5-5.0); CALCIUM 8.5 mg/dL (8.8-10.2); POTASSIUM 3.3 mmol/L (3.5-5.1); TOTAL BILIRUBIN 0.61 mg/dL (0.20-1.00); TOTAL PROTEIN 5.7 g/dL (6.3-8.3)
[2019-10-03 07:50] LABS: HEMATOCRIT 23.4 % (42.0-52.0); HEMOGLOBIN 7.8 g/dL (14.0-18.0)
[2019-10-03] MEDS: NEURONTIN PO SCH ×3 (09:49→20:45)
[2019-10-03] MEDS: IMDUR PO SCH (09:50)
[2019-10-03] MEDS: ENTRESTO 24 MG-26 MG TABLET PO SCH ×2 (09:50→20:45)
[2019-10-03] MEDS: FLOMAX PO SCH (09:50)
[2019-10-03] MEDS: PLAVIX PO SCH (09:50)
[2019-10-03] MEDS: PRAMIPEXOLE DI HCL PO SCH (09:50)
[2019-10-03] MEDS: APRESOLINE PO SCH ×3 (09:50→17:15)
[2019-10-03] MEDS: KLOR-CON PO SCH (09:50)
[2019-10-03] MEDS: COREG PO SCH ×2 (09:50→20:45)
--- NOTE | 2019-10-03 10:57 | PROGRESS NOTE ---
DATE: 10/03/2019 SUBJECTIVE: Mr. Victor refers to be feeling about the same compared with yesterday. No acute events overnight. BUN is a little bit worse compared with yesterday. Creatinine decreased a little bit from 2.1 to 2, LFTs are elevated today. Cardiology Department on board and they have requested to transfer this patient to the PVC unit. OBJECTIVE: Vital Signs: Temperature 98.3 degrees, pulse 86, respiratory rate 20, blood pressure 132/59, oxygen saturation 98 on room air. HEENT: Head normocephalic, no trauma PERRLA. Neck: Supple. He does have some JVD central trachea. Chest: Some scattered crackles mostly at the bases. Good air entry. Cardiovascular: Irregular rhythm. Abdomen: Soft. He has some wall edema. Abdomen is a bit protuberant/distended, but positive bowel sounds and no pain. Extremities: 2+ lower extremity edema bilaterally. He has chronic scars on the right lower extremity but he does not remember why. Neurological: The patient is awake alert he is oriented x2. He is not oriented to time. He is following basic commands. LABORATORY: Hemoglobin 7.8, hematocrit 23.4. Sodium 135, potassium 3.3, chloride 98, bicarbonate 20, BUN 45, creatinine 2, glucose 201, calcium 8.5, AST 245, ALT 139, alkaline phosphatase 130, albumin 2.6. ASSESSMENT AND PLAN: 1. Altered mental status on presentation probably delirium in a patient with baseline dementia. MRI of the head did not show any acute problem. It looks like his mentation is better and probably this is his baseline. He is answering some of my questions. 2. Congestive heart failure with an ejection fraction of 35 to 40 percent with biventricular failure noted. He still has some fluid overload but the kidney function is getting a little bit worse with Lasix, which has been stopped already. He has been getting albumin, cardiology on board. 3. Hypoalbuminemia as above. 4. History of coronary artery disease status post stents aware. 5. Type 2 diabetes with a hemoglobin A1c of 7.6. Continue with same management. 6. Suspected acute on chronic kidney disease, creatinine is a bit better compared with yesterday BUN increased. He has been getting Lasix which actually has been stopped. He used to be on Brilinta. 7. Hypernatremia on presentation, resolved. 8. Hypokalemia, stable. We will just monitor. 9. Elevated liver function tests, probably due to volume depletion and/or hepatic congestion. I will hold for now his statins. 10. Anemia, normocytic, with a positive Hemoccult a local blood in the stool. I have requested an evaluation by Gastroenterology Department today. 11. History of atrial fibrillation, he was on Brilinta, which has been stopped already. He has been placed on anticoagulation twice a day by Cardiology Department as well as Plavix. I will discuss the case with them due to his anemia and his positive Hemoccult. cc: Kalpesh Escalante MD
[2019-10-03] MEDS ORDERED: MILRINONE IV ONE (15:47)
[2019-10-03] MEDS ORDERED: ALBUMIN 25% IV ONE (15:51)
--- NOTE | 2019-10-03 16:30 | PROGRESS NOTE ---
DATE: 10/03/2019 SUBJECTIVE: Patient denies shortness of breath or chest discomfort. OBJECTIVE: Vital Signs: Blood pressure 118/65, heart rate 67, oxygen saturation 100%. Neck: Jugular distention persists, suggesting elevated central venous pressure. Chest: Auscultation of the chest reveals diminished breath sounds in the bases bilaterally. Cardiac Exam: Reveals an irregular rate and rhythm without appreciable murmur or gallop. Extremities: Demonstrate mild pretibial edema. LABORATORY DATA: Include sodium 135, potassium 3.3, chloride 98, carbon dioxide 20, BUN 45, creatinine 2.0, glucose 201, AST 245, ALT 139, alkaline phosphatase 130. IMPRESSION: 1. Acute on chronic biventricular congestive heart failure predominantly right-sided in setting of moderate to severe pulmonary hypertension and cor pulmonale. The patient continues to manifest evidence of elevated central venous pressure and has had little diuresis in the last 24 hours. 2. Cardiomyopathy with left ventricular ejection fraction 35% to 40%. 3. Atherosclerotic coronary disease. Patient is status post previous myocardial infarction and coronary angioplasty/stenting of left circumflex coronary in October 2018. 4. Moderate to severe pulmonary hypertension. 5. Chronic atrial fibrillation. 6. Nephrotic syndrome. 7. Parkinson's disease. 8. Type 2 diabetes mellitus. RECOMMENDATIONS: 1. Initiate inotrope with Primacor. 2. Diurese with IV Lasix. cc: Shad Buchanan MD
[2019-10-03] MEDS ORDERED: LASIX IV ONE (17:00)
[2019-10-03] MEDS: PRIMACOR 20 MG/D5W 100 ML 20 MG/100 ML IVPB IV SCH ×2 (17:19→23:11)
[2019-10-03] MEDS: 1/2 NS 1,000 ML IV SCH (19:27)
[2019-10-03] MEDS ORDERED: LOVENOX SUBQ SCH (20:00)
[2019-10-03] MEDS ORDERED: CALMOSEPTINE OINTMENT TOP PRN (20:37)
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
[2019-10-04] MEDS: PRIMACOR 20 MG/D5W 100 ML 20 MG/100 ML IVPB IV SCH ×3 (06:18→22:31)
[2019-10-04] MEDS: 1/2 NS 1,000 ML IV SCH (06:24)
[2019-10-04] MEDS: HUMULIN R SUBQ SCH ×4 (06:25→22:32)
--- NOTE | 2019-10-04 06:32 | Diag Imaging Result Doc PS360 ---
EXAM: CHEST-PORTABLE HISTORY: dyspnea TECHNIQUE: Single view COMPARISON: 10/02/2019 FINDINGS: The lungs are well expanded. The heart is mildly enlarged. Mild central vascular prominence. There are small effusions. No consolidation. IMPRESSION: No interval improvement Electronically signed by Ata Harris 10/04/2019 6:30 AM
[2019-10-04 06:51] LABS: ALB/GLOB RATIO 0.8; ALBUMIN 2.5 g/dL (3.5-5.0); CALCIUM 8.8 mg/dL (8.8-10.2); CREATININE 2.2 mg/dL (0.7-1.2); POTASSIUM 3.5 mmol/L (3.5-5.1); TOTAL BILIRUBIN 0.53 mg/dL (0.20-1.00); TOTAL PROTEIN 5.6 g/dL (6.3-8.3)
[2019-10-04 07:10] LABS: BASO# 0.01 X1000 (0.0-0.2); BASO% 0.2 % (0.0-0.8); EOS# 0.18 X1000 (0.0-0.7); EOS% 2.7 % (0.0-10.0); HEMATOCRIT 21.5 % (42.0-52.0); HEMOGLOBIN 7.3 g/dL (14.0-18.0); IMM GRAN# 0.02 X1000 (0.0-0.04); IMM GRAN% 0.3 % (0.0-0.5); LYMPH# 0.87 X1000 (1.2-3.4); LYMPH% 13.2 % (20.5-51.1); MCH 32.2 PG (27-31); MCV 94.7 FL (81-99); MONO# 0.64 X1000 (0.11-0.59); MONO% 9.7 % (1.7-9.3); MPV 12.1 FL (7.4-10.4); NEUT# 4.87 X1000 (1.4-6.5); NEUT% 73.9 % (42.2-75.2); PLT 217 X1000 (130-400); RBC 2.27 XMIL (4.7-6.1); RDW 14.4 % (11.5-14.5); WBC 6.59 X1000 (4.8-10.8)
[2019-10-04 07:21] LABS: MAGNESIUM 2.1 mg/dL (1.5-2.7); PHOSPHORUS 3.4 mg/dL (2.7-4.5)
[2019-10-04] MEDS: COREG PO SCH ×2 (08:49→22:32)
[2019-10-04] MEDS ORDERED: AMIDATE ONE (09:47)
[2019-10-04] MEDS ORDERED: XYLOCAINE-MPF 2% ONE (09:47)
--- NOTE | 2019-10-04 09:55 | ENDOSCOPY OPERATIVE NOTE ---
[facility] ENDOSCOPY OPERATIVE NOTE , EGD PROCEDURE REPORT EXAM DATE: 10/04/2019 PATIENT NAME: Saúl Victor MR#: [id number] BIRTHDATE: 1950 ATTENDING: Yaya Lemus MD STATUS: inpatient [employer] OFFICER: INDICATIONS: The patient is a 69 yr old male here for an EGD due to Anemia, CHF, Pulmonary Hypertens ion, Patient on Plavix and Lovenox. PROCEDURE PERFORMED: EGD, diagnostic MEDICATIONS: Per Anesthesia ESTIMATED BLOOD LOSS: None CONSENT: The patient understands the risks and benefits of the procedure and understands that these r isks include, but are not limited to: sedation, allergic reaction, infection, perforation and/or bleeding. Alternative means of evaluation and treatment include, among others: physical exam, x-rays, and/or surgical intervention. The patient elects to proceed with this endoscopic procedure. DESCRIPTION OF PROCEDURE: During pre-op preparation period all mechanical and medical equipment was c hecked for proper function. Hand hygiene and appropriate measures for infection prevention was taken. After the risks, benefits and alternatives of the procedure were thoroughly explained, Informed consent was verified, confirmed and timeout was successfully executed by the treatment team. The patient was anesthetized with topical anesthesia and the [id number] ([id number]) endoscope was introduced through the mouth and advanced to the second portion of the duoden um. Retroflexion was performed in the stomach and revealed Food in stomach fundus and cardia. The gastroscope was the n slowly withdrawn and removed. The patient's toleration of the procedure was good. ESOPHAGUS: Candidial esophagitis moderate degree throughout the esophagus; Reflux esophagitis LA grad e B was noted in the distal esophagus and GEJ. STOMACH: Large amount of retained food was noted in the fundus cardia body and pylorus. Partly evacu ated. Underlying gastritis was noted in the body of the stomach. DUODENUM: Mild duodenal inflammation was found in the duodenal bulb. The duodenal mucosa showed no abnormalities in the 2nd part of the duodenum. ADVERSE EVENTS: There were no complications. IMPRESSIONS: 1. Candidial esophagitis moderate degree throughout the esophagus; Reflux esophagit is LA grade B was noted in the distal esophagus and GEJ 2. Large amount of retained food was noted in the fundus cardia body and pylorus. Partly evacuated. Underlying gastritis was noted in the body of the stomach 3. Duodenal inflammation was found in the duodenal bulb 4. The duodenal mucosa showed no abnormalities in the 2nd part of the duodenum RECOMMENDATIONS: 1. Start Protonix 40 mg BID for 3 months Start Iron C BID for 3 months Start MVi QD for 3 months Start Fluconazole 100 mg QD for 2 weeks Watch Hct and Transfuse as needed to keep Hb>7g/dl Start Miralax 17g QD Start Liquid diet for 2 days Aspiration precautions Reglan start at 5 mg BID and Hold for side effects like Tardive dyskinesia. 2. May need colonoscopy at some point-depends upon clinical course. REPEAT EXAM: Yaya Lemus MD eSigned: Yaya Lemus MD 10/04/2019 9:55 AM CC: CPT CODES: 30230 Upper gastrointestinal endoscopy including esophagus, stomach, and either the du odenum and/or jejunum as appropriate; diagnostic, with or without collection of specimen(s) by brushing or washing (separate procedure) ICD CODES: 535.60 Duodenitis (without mention of hemorrhage) The ICD and CPT codes recommended by this software are interpretations from the data that the [facility] staff has captured with the software. The verification of the translation of this report to the ICD and CPT co damien and modifiers is the sole responsibility of the health care institution and practicing physician where this report was generated. [employer] will not be held responsible for the validity of the ICD and CPT codes i ncluded on this report. A assumes no liability for data contained or not contained herein. CPT is a registered tra demark of the [employer]. PATIENT NAME: Saúl Victor MR#: [id number]
[2019-10-04] MEDS: APRESOLINE PO SCH ×3 (10:24→22:32)
[2019-10-04] MEDS: PLAVIX PO SCH (10:25)
[2019-10-04] MEDS: ENTRESTO 24 MG-26 MG TABLET PO SCH ×2 (10:25→22:32)
[2019-10-04] MEDS: FLOMAX PO SCH (10:25)
[2019-10-04] MEDS: NEURONTIN PO SCH ×3 (10:25→22:32)
[2019-10-04] MEDS: KLOR-CON PO SCH (10:25)
[2019-10-04] MEDS: IMDUR PO SCH (10:25)
[2019-10-04] MEDS: REGLAN IV SCH ×2 (10:31→22:32)
[2019-10-04] MEDS: MIRALAX PO SCH (10:31)
[2019-10-04] MEDS: ICAR-C PLUS PO SCH ×2 (10:31→22:32)
[2019-10-04] MEDS: CENTRUM SILVER PO SCH (10:31)
[2019-10-04] MEDS: DIFLUCAN 200 MG/NS 200 MG/100 ML IVPB IV SCH (12:03)
[2019-10-04] MEDS: PRAMIPEXOLE DI HCL PO SCH (12:03)
--- NOTE | 2019-10-04 15:06 | PROGRESS NOTE ---
DATE: 10/04/2019 SUBJECTIVE: This morning, Mr. Victor refers to be doing okay. No new complaints. He underwent EGD this morning, which showed esophageal candidiasis, some duodenitis, and some gastritis. OBJECTIVE: Vital Signs: Blood pressure is 140/52, pulse of 79, respirations 17, temperature 98.3 degrees. General: Mr. Victor is a 69-year-old gentleman. He is in bed. No distress. HEENT: Mucosa is pink and moist. Anicteric. Acyanotic. Neck: Supple. Chest: Air entry is bilaterally reduced. Some crackles posteriorly. Cardiovascular: Irregularly irregular. GI: Abdomen is soft, nontender. Bowel sounds present. Extremities: There is 2+ pedal edema. There are some chronic scars on the right lower extremity. [employer]ATION MANAGER: The patient is awake, alert, and follows commands. LABORATORY DATA: Hemoglobin is 7.3. The rest of CBC unremarkable. Sodium is 135, BUN is 50, creatinine is 2.2. AST and ALT are minimally elevated. ASSESSMENT: 1. Altered mental status on presentation secondary to delirium on baseline dementia. The patient's mentation has significantly improved. 2. Fluid overload secondary to congestive heart failure with ejection fraction of 35% to 40% associated with biventricular enlargement. The patient continues to be fluid overload, so I have discontinued the intravenous fluid this morning. 3. History of coronary artery disease, status post stents. 4. Diabetes mellitus with presenting A1c of 7.6. 5. Acute on chronic kidney disease versus progression of chronic kidney disease. The patient continues to make adequate urine. Possible suspicion could be cardiorenal. The patient is getting albumin. He has also been started on milrinone to enhance inotropic properties. 6. Transaminitis. 7. Normocytic anemia. The patient is status post esophagogastroduodenoscopy, which shows Nanci esophagitis with gastritis and duodenitis. The patient has been started on fluconazole, and he is also on proton pump inhibitor. cc: Jermaine De Leon MD
[2019-10-04] MEDS ORDERED: LASIX IV ONE (17:32)
--- NOTE | 2019-10-04 18:30 | PROGRESS NOTE ---
DATE: 10/04/2019 SUBJECTIVE: Patient denies chest discomfort or shortness of breath on supplemental oxygen per nasal cannula. His appetite has improved considerably. OBJECTIVE: Vital Signs: Blood pressure 114/62, heart rate 74, oxygen saturation 98%. Jugular distention is evident suggesting elevated central venous pressure. Auscultation of chest reveals diminished breath sounds at bases bilaterally. Cardiac Exam: Reveals an irregular rate and rhythm without appreciable murmur or gallop. Extremities: Demonstrate moderate pretibial edema. LABORATORY DATA: Includes white blood cell count 6.59, hematocrit 21.5, platelet count 7.3, platelet count 217. Sodium 135, potassium 3.5, chloride 100, carbon oxide 22, BUN 50, creatinine 2.2. Glucose 252. Magnesium 2.1. AST 85, ALT 93. IMPRESSION: 1. Acute on chronic biventricular congestive heart failure predominantly right-sided in setting of moderate to severe pulmonary hypertension and cor pulmonale. Patient continues to manifest evidence of elevated central venous pressure. Recent elevation in serum transaminases is probably related to hepatic congestion and appears to be improving with diuresis. 2. Cardiomyopathy with left ventricular ejection fraction of 35% to 40%. 3. Atherosclerotic coronary disease. Patient is status post previous myocardial infarction and coronary angioplasty/stenting of left circumflex coronary in October 2018. 4. Moderate to severe pulmonary hypertension. 5. Chronic atrial fibrillation. 6. Nephrotic syndrome. 7. Parkinson disease. 8. Type 2 diabetes mellitus. 9. Anemia. RECOMMENDATIONS: 1. Continue Primacor for inotrope. 2. Continue diuresis. 3. Consider merits of transfusion. cc: Shad Buchanan MD
[2019-10-04] MEDS: PROTONIX PO SCH (22:32)
[2019-10-05] MEDS: PRIMACOR 20 MG/D5W 100 ML 20 MG/100 ML IVPB IV SCH ×3 (05:52→20:24)
[2019-10-05 06:19] LABS: HEMATOCRIT 21.7 % (42.0-52.0); HEMOGLOBIN 7.3 g/dL (14.0-18.0); MCH 31.2 PG (27-31); MCHC 33.6 g/dL (33-37); MCV 92.7 FL (81-99); MPV 11.3 FL (7.4-10.4); RBC 2.34 XMIL (4.7-6.1); RDW 14.1 % (11.5-14.5); WBC 6.78 X1000 (4.8-10.8)
[2019-10-05 06:39] LABS: ALB/GLOB RATIO 0.8; ALBUMIN 2.6 g/dL (3.5-5.0); CALCIUM 8.7 mg/dL (8.8-10.2); CREATININE 2.2 mg/dL (0.7-1.2); POTASSIUM 3.7 mmol/L (3.5-5.1); TOTAL BILIRUBIN 0.5 mg/dL (0.20-1.00); TOTAL PROTEIN 5.8 g/dL (6.3-8.3)
[2019-10-05] MEDS: HUMULIN R SUBQ SCH ×4 (06:39→20:23)
[2019-10-05] MEDS ORDERED: LASIX IV ONE ×3 (08:00→20:12)
[2019-10-05] MEDS: MIRALAX PO SCH (08:45)
[2019-10-05] MEDS: KLOR-CON PO SCH (08:46)
[2019-10-05] MEDS: NEURONTIN PO SCH ×3 (08:46→20:26)
[2019-10-05] MEDS: COREG PO SCH ×2 (08:46→20:25)
[2019-10-05] MEDS: DIFLUCAN 200 MG/NS 200 MG/100 ML IVPB IV SCH ×2 (08:46→10:58)
[2019-10-05] MEDS: PROTONIX PO SCH ×2 (08:46→20:25)
[2019-10-05] MEDS: PRAMIPEXOLE DI HCL PO SCH (08:46)
[2019-10-05] MEDS: PLAVIX PO SCH (08:46)
[2019-10-05] MEDS: IMDUR PO SCH (08:46)
[2019-10-05] MEDS: ICAR-C PLUS PO SCH ×2 (08:47→20:25)
[2019-10-05] MEDS: REGLAN IV SCH ×2 (08:47→10:58)
[2019-10-05] MEDS: APRESOLINE PO SCH ×3 (08:47→20:25)
[2019-10-05] MEDS: CENTRUM SILVER PO SCH (08:47)
[2019-10-05] MEDS: ENTRESTO 24 MG-26 MG TABLET PO SCH ×2 (08:47→20:25)
[2019-10-05] MEDS: FLOMAX PO SCH (08:50)
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
[2019-10-05] MEDS ORDERED: NS 500 ML IV ONE (15:31)
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
[2019-10-05] MEDS ORDERED: REGLAN IV PRN (22:42)
--- NOTE | 2019-10-05 22:51 | CONSULTATION ---
DATE OF CONSULTATION: 10/05/2019 SUBJECTIVE: Patient denies shortness of breath on room air. There has been no chest pain. OBJECTIVE: Vital Signs: Blood pressure 111/52, heart rate 81, oxygen saturation 98%. Neck: JV distention is present, suggesting central venous pressure around 10. Chest: Clear to auscultation bilaterally with diminished breath sounds at the bases. Cardiac: Reveals an irregular rate and rhythm without appreciable murmur or gallop. Extremities: Demonstrate moderate pretibial edema. LABORATORY DATA: Includes white blood cell count 6.78, hematocrit 21.7, hemoglobin 7.3, platelet count 255,000. Sodium 133 potassium 3.7, chloride 98, carbon dioxide 20, BUN 58, creatinine 2.2. Glucose 203, albumin 2.6. AST 54, ALT 79. IMPRESSION: 1. Acute on chronic biventricular congestive heart failure, predominantly right-sided, in setting of moderate to severe pulmonary hypertension and cor pulmonale, as well as hypoalbuminemia and some degree of nephrotic syndrome. Patient continues to manifest evidence of elevated central venous pressure. Suspect also cardiorenal syndrome playing a role. 2. Cardiomyopathy with left ventricular ejection fraction 35 to 40 percent on technically difficult echo. 3. Atherosclerotic coronary disease with previous myocardial infarction and coronary angioplasty of left circumflex coronary in October 2018. 4. Moderate to severe pulmonary hypertension. 5. Chronic atrial fibrillation. 6. Nephrotic syndrome. 7. Significant anemia compounding the patient's congestive heart failure and renal dysfunction. 8. Parkinson disease. 9. Type 2 diabetes mellitus. RECOMMENDATIONS: 1. Continue Primacor. 2. Transfuse 2 units of packed red blood cells given significant anemia in setting of congestive heart failure and renal dysfunction. 3. Diurese with transfusion. cc: Shad Buchanan MD
[2019-10-06] MEDS: PRIMACOR 20 MG/D5W 100 ML 20 MG/100 ML IVPB IV SCH ×3 (04:18→18:28)
[2019-10-06] MEDS: HUMULIN R SUBQ SCH ×4 (06:01→20:20)
[2019-10-06] MEDS: ZOFRAN IV SCH ×3 (06:01→15:54)
[2019-10-06 06:54] LABS: BASO# 0.01 X1000 (0.0-0.2); BASO% 0.1 % (0.0-0.8); EOS# 0.17 X1000 (0.0-0.7); EOS% 1.9 % (0.0-10.0); HEMATOCRIT 24.6 % (42.0-52.0); HEMOGLOBIN 8.3 g/dL (14.0-18.0); IMM GRAN# 0.02 X1000 (0.0-0.04); IMM GRAN% 0.2 % (0.0-0.5); LYMPH# 0.94 X1000 (1.2-3.4); LYMPH% 10.7 % (20.5-51.1); MCH 30.4 PG (27-31); MCHC 33.7 g/dL (33-37); MCV 90.1 FL (81-99); MONO# 0.88 X1000 (0.11-0.59); MONO% 10.1 % (1.7-9.3); MPV 11.2 FL (7.4-10.4); NEUT# 6.73 X1000 (1.4-6.5); PLT 282 X1000 (130-400); RBC 2.73 XMIL (4.7-6.1); RDW 15.7 % (11.5-14.5); WBC 8.75 X1000 (4.8-10.8)
[2019-10-06 07:10] LABS: ALB/GLOB RATIO 0.9; ALBUMIN 2.8 g/dL (3.5-5.0); CALCIUM 8.6 mg/dL (8.8-10.2); CREATININE 1.9 mg/dL (0.7-1.2); POTASSIUM 3.9 mmol/L (3.5-5.1); TOTAL BILIRUBIN 0.86 mg/dL (0.20-1.00)
[2019-10-06] MEDS: NEURONTIN PO SCH ×3 (08:24→20:20)
[2019-10-06] MEDS: APRESOLINE PO SCH ×4 (08:25→20:20)
[2019-10-06] MEDS: PRAMIPEXOLE DI HCL PO SCH (08:25)
[2019-10-06] MEDS: ENTRESTO 24 MG-26 MG TABLET PO SCH ×2 (08:25→20:20)
[2019-10-06] MEDS: DIFLUCAN 200 MG/NS 200 MG/100 ML IVPB IV SCH (08:25)
[2019-10-06] MEDS: PROTONIX PO SCH ×2 (08:25→20:20)
[2019-10-06] MEDS: MIRALAX PO SCH (08:25)
[2019-10-06] MEDS: ICAR-C PLUS PO SCH ×2 (08:25→20:20)
[2019-10-06] MEDS: IMDUR PO SCH (08:25)
[2019-10-06] MEDS: PLAVIX PO SCH (08:25)
[2019-10-06] MEDS: FLOMAX PO SCH (08:25)
[2019-10-06] MEDS: COREG PO SCH ×2 (08:25→20:20)
[2019-10-06] MEDS: KLOR-CON PO SCH (08:25)
[2019-10-06] MEDS: CENTRUM SILVER PO SCH (08:25)
[2019-10-06] MEDS: LANTUS INSULIN SUBQ SCH (09:48)
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
[2019-10-06] MEDS ORDERED: ALBUMIN 25% IV ONE (14:53)
[2019-10-06] MEDS ORDERED: LASIX IV ONE (14:54)
--- NOTE | 2019-10-06 15:55 | PROGRESS NOTE ---
DATE: 10/06/2019 SUBJECTIVE: The patient was transfused 2 units of packed red cells last night with IV Lasix in between units. He continues on low-dose Primacor. He denies any shortness of breath. Staff relates that he has had some dark stools. OBJECTIVE: Vital Signs: Blood pressure 133/42, heart rate 60, oxygen saturation 95% on room air. Neck: Jugular venous distention is present consistent with elevated central venous pressure. Chest: Auscultation of the chest reveals diminished breath sounds at the bases bilaterally. Cardiac exam: Reveals an irregular rate and rhythm without appreciable murmur or gallop. Extremities: Demonstrate moderate edema. LABORATORY DATA: Includes a white blood cell count 8.75, hematocrit 24.6, hemoglobin 8.3, platelet count 282. Sodium 134, potassium 3.9, chloride 99, carbon dioxide 21. BUN 61, creatinine 1.9, glucose 227. AST 31, ALT 58, albumin 2.8. IMPRESSION: 1. Acute on chronic biventricular congestive heart failure, predominantly right-sided in the setting of moderate to severe pulmonary hypertension and cor pulmonale. 2. Cardiomyopathy with left ventricular ejection fraction of 35 to 40 percent on technically difficult echocardiogram. 3. Atherosclerotic coronary disease with previous myocardial infarction and coronary angioplasty/stenting of the left circumflex coronary in October 2018 with drug-eluting stent. Patient continues without angina. He was on Brilinta and aspirin at admission, but is currently on Plavix 75 mg daily alone. 4. Moderate to severe pulmonary hypertension. 5. Chronic atrial fibrillation. Heart rate control. The patient has had difficulty with anemia and apparent gastrointestinal blood loss. He is not a suitable candidate for anticoagulation at this time. Lovenox discontinued. 6. Nephrotic syndrome. 7. Anemia, probably multifactorial. 8. Parkinson disease. 9. Type 2 diabetes mellitus. RECOMMENDATIONS: 1. Continue Primacor. 2. Try and diurese further. 3. Follow renal function closely. cc: Shad Buchanan MD
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
[2019-10-07 00:25] LABS: URINE SOURCE CATH
[2019-10-07 00:28] LABS: BILIRUBIN URINE NEGATIVE (NEGATIVE); BLOOD URINE MODERATE (NEGATIVE); COLOR YELLOW; GLUCOSE URINE NEGATIVE (NEGATIVE); KETONE URINE NEGATIVE (NEGATIVE); LEUKOCYTES URINE LARGE (NEGATIVE); NITRITE URINE NEGATIVE (NEGATIVE); PH URINE 5.5; PROTEIN URINE 100 mg/dL (NEGATIVE); SP GRAVITY URINE 1.016; TURBIDITY URINE TURBID (CLEAR); UROBILINOGEN URINE 4 mg/dL (NORMAL)
[2019-10-07 00:30] LABS: UR EPITHELIAL CELLS <10 /HPF (<10); URINE BACTERIA 2+ /HPF; URINE RBC TNTC /HPF (<10); URINE WBC TNTC /HPF (<10)
[2019-10-07 00:38] LABS: URINE CASTS NONE SEEN; URINE CRYSTALS NONE SEEN; URINE SMALL ROUND CELLS NONE SEEN; URINE YEAST NONE SEEN
[2019-10-07] MEDS ORDERED: ZOSYN 3.375 GM in NS 50 ML IV ONE (01:04)
[2019-10-07] MEDS: PRIMACOR 20 MG/D5W 100 ML 20 MG/100 ML IVPB IV SCH ×3 (01:20→16:43)
[2019-10-07 05:57] LABS: BASO# 0.01 X1000 (0.0-0.2); BASO% 0.1 % (0.0-0.8); EOS# 0.33 X1000 (0.0-0.7); EOS% 4.2 % (0.0-10.0); HEMATOCRIT 25.9 % (42.0-52.0); HEMOGLOBIN 8.5 g/dL (14.0-18.0); LYMPH# 0.94 X1000 (1.2-3.4); LYMPH% 11.9 % (20.5-51.1); MCH 30.1 PG (27-31); MCHC 32.8 g/dL (33-37); MCV 91.8 FL (81-99); MONO# 0.69 X1000 (0.11-0.59); MONO% 8.7 % (1.7-9.3); MPV 10.1 FL (7.4-10.4); NEUT# 5.94 X1000 (1.4-6.5); NEUT% 75.1 % (42.2-75.2); PLT 308 X1000 (130-400); RBC 2.82 XMIL (4.7-6.1); RDW 15.8 % (11.5-14.5); WBC 7.91 X1000 (4.8-10.8)
[2019-10-07] MEDS: HUMULIN R SUBQ SCH ×4 (05:59→21:31)
[2019-10-07] MEDS: ZOFRAN IV SCH ×3 (05:59→16:42)
[2019-10-07 06:10] LABS: ALBUMIN 2.8 g/dL (3.5-5.0); CALCIUM 8.9 mg/dL (8.8-10.2); CREATININE 2.9 mg/dL (0.7-1.2); MAGNESIUM 2.2 mg/dL (1.5-2.7); PHOSPHORUS 3.9 mg/dL (2.7-4.5); POTASSIUM 3.9 mmol/L (3.5-5.1)
[2019-10-07] MEDS ORDERED: ALBUMIN 25% IV ONE ×2 (07:07→14:52)
[2019-10-07] MEDS: DIFLUCAN 200 MG/NS 200 MG/100 ML IVPB IV SCH (08:03)
[2019-10-07] MEDS: ZOSYN 2.25 GM in NS 50 ML IV SCH ×3 (08:03→21:32)
[2019-10-07] MEDS: PLAVIX PO SCH (08:04)
[2019-10-07] MEDS: IMDUR PO SCH (08:04)
[2019-10-07] MEDS: PROTONIX PO SCH ×2 (08:04→21:31)
[2019-10-07] MEDS: FLOMAX PO SCH (08:04)
[2019-10-07] MEDS: MIRALAX PO SCH (08:04)
[2019-10-07] MEDS: ENTRESTO 24 MG-26 MG TABLET PO SCH ×2 (08:04→21:31)
[2019-10-07] MEDS: APRESOLINE PO SCH ×3 (08:04→21:31)
[2019-10-07] MEDS: PRAMIPEXOLE DI HCL PO SCH (08:04)
[2019-10-07] MEDS: CENTRUM SILVER PO SCH (08:04)
[2019-10-07] MEDS: KLOR-CON PO SCH (08:04)
[2019-10-07] MEDS: COREG PO SCH ×2 (08:04→21:31)
[2019-10-07] MEDS: ICAR-C PLUS PO SCH ×2 (08:04→21:31)
[2019-10-07] MEDS: NEURONTIN PO SCH ×3 (08:19→21:31)
[2019-10-07] MEDS: LANTUS INSULIN SUBQ SCH (08:19)
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
--- NOTE | 2019-10-07 13:54 | Diag Imaging Result Doc PS360 ---
EXAM: CHEST-2 VIEWS HISTORY: reassess chf TECHNIQUE: Two views COMPARISON: 10/04/2019 FINDINGS: The heart is enlarged. There is a small right pleural effusion. No left effusion. Mild vascular distention. IMPRESSION: Stable exam Electronically signed by Ata Harris 10/07/2019 1:52 PM
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
[2019-10-07] MEDS ORDERED: LASIX IV ONE ×2 (14:51→22:00)
--- NOTE | 2019-10-07 15:29 | PROGRESS NOTE ---
DATE: 10/07/2019 SUBJECTIVE: Patient is somewhat drowsy this morning when I see him. He denies shortness of breath or chest discomfort. OBJECTIVE: Vital Signs: Blood pressure 116/65, heart rate 72 with ECG monitor showing atrial fibrillation with controlled rate. Neck: Jugular distention is evident consistent with elevated central venous pressure. Respiratory: Auscultation of the chest reveals diminished breath sounds at bases bilaterally. Cardiac Exam: Reveals an irregular rate and rhythm without appreciable murmur or gallop. Extremities: Demonstrate moderate edema. LABORATORY DATA: Includes a white blood cell count 7.91, hematocrit 25.9, hemoglobin 8.5. Sodium 135, potassium 3.9, chloride 99, carbon dioxide 21. BUN 65, creatinine 2.9, glucose 185. Abdomen 2.8. IMPRESSION: 1. Acute on chronic congestive heart failure, currently right-sided. 2. Cardiomyopathy with left ventricular ejection fraction probably around 40% on technically difficult study. 3. Atherosclerotic coronary disease with previous myocardial infarction and coronary angioplasty/stenting of left circumflex coronary, October 2018 with drug-eluting stent. 4. Moderate to severe pulmonary hypertension. 5. Suspect obstructive sleep apnea. 6. Chronic atrial fibrillation. 7. Some element of nephrotic syndrome and chronic kidney disease. Baseline renal function not clear. 8. Significant anemia complicating patient's hospital course. Patient previously on aspirin and Brilinta at admission, and was transitioning to Plavix and Lovenox and ultimately with plans to transition to Plavix and Eliquis. However, he developed progressive anemia and Lovenox was discontinued. He currently is on Plavix alone. He has received transfusion of 2 units. 9. Parkinson disease. Suspect some component of dementia. 10. Type 2 diabetes mellitus. 11. Obesity. RECOMMENDATIONS: 1. Continue Primacor. 2. Continue efforts to diurese. 3. Agree with additional intravenous albumin supplementation. 4. Try to utilize BiPAP when sleeping at night. cc: Shad Buchanan MD
--- NOTE | 2019-10-07 15:37 | ECHO REPORT ---
ORDER DATE: 10/07/2019 ADDENDUM: Optison was used to assess left ventricular systolic function. Left ventricle was dilated with an estimated ejection fraction of 40 to 45%. cc: MD Shad Romano MD
[2019-10-07] MEDS ORDERED: LOVENOX SUBQ SCH (16:00)
[2019-10-07 18:42] LABS: URINE SOURCE CATH
[2019-10-07 19:01] LABS: BILIRUBIN URINE NEGATIVE (NEGATIVE); BLOOD URINE MODERATE (NEGATIVE); COLOR YELLOW; GLUCOSE URINE NEGATIVE (NEGATIVE); KETONE URINE NEGATIVE (NEGATIVE); LEUKOCYTES URINE LARGE (NEGATIVE); NITRITE URINE NEGATIVE (NEGATIVE); PH URINE 5.5; PROTEIN URINE TRACE mg/dL (NEGATIVE); SP GRAVITY URINE 1.014; TURBIDITY URINE HAZY (CLEAR); UROBILINOGEN URINE NORMAL (NORMAL)
[2019-10-07 19:02] LABS: UR EPITHELIAL CELLS <10 /HPF (<10); URINE BACTERIA NEGATIVE /HPF; URINE RBC TNTC /HPF (<10); URINE WBC 20-40 /HPF (<10)
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
[2019-10-07 19:15] LABS: UR CREAT RANDOM 101.7 mg/dL (14-26); UR PROT RANDOM 13.8 mg/dL
[2019-10-08] MEDS: PRIMACOR 20 MG/D5W 100 ML 20 MG/100 ML IVPB IV SCH ×4 (00:41→21:59)
[2019-10-08] MEDS: ZOSYN 2.25 GM in NS 50 ML IV SCH ×4 (03:22→20:48)
[2019-10-08] MEDS: ZOFRAN IV SCH ×3 (06:11→16:56)
[2019-10-08] MEDS: HUMULIN R SUBQ SCH ×4 (06:11→20:49)
[2019-10-08 06:12] LABS: HEMATOCRIT 24.9 % (42.0-52.0); HEMOGLOBIN 8.2 g/dL (14.0-18.0); MCH 30.4 PG (27-31); MCHC 32.9 g/dL (33-37); MCV 92.2 FL (81-99); MPV 10.8 FL (7.4-10.4); RBC 2.7 XMIL (4.7-6.1); RDW 15.5 % (11.5-14.5); WBC 5.9 X1000 (4.8-10.8)
[2019-10-08 06:58] LABS: ALBUMIN 2.9 g/dL (3.5-5.0); CALCIUM 9.1 mg/dL (8.8-10.2); CREATININE 3.5 mg/dL (0.7-1.2); PHOSPHORUS 4.4 mg/dL (2.7-4.5); POTASSIUM 4.3 mmol/L (3.5-5.1)
[2019-10-08] MEDS: DIFLUCAN 200 MG/NS 200 MG/100 ML IVPB IV SCH (08:15)
[2019-10-08] MEDS: IMDUR PO SCH (08:17)
[2019-10-08] MEDS: NEURONTIN PO SCH ×3 (08:17→20:47)
[2019-10-08] MEDS: PLAVIX PO SCH (08:17)
[2019-10-08] MEDS: APRESOLINE PO SCH ×3 (08:17→20:47)
[2019-10-08] MEDS: MIRALAX PO SCH (08:17)
[2019-10-08] MEDS: FLOMAX PO SCH (08:17)
[2019-10-08] MEDS: ICAR-C PLUS PO SCH ×2 (08:17→20:48)
[2019-10-08] MEDS: KLOR-CON PO SCH (08:17)
[2019-10-08] MEDS: COREG PO SCH ×2 (08:18→22:04)
[2019-10-08] MEDS: ENTRESTO 24 MG-26 MG TABLET PO SCH (08:18)
[2019-10-08] MEDS: LANTUS INSULIN SUBQ SCH (08:18)
[2019-10-08] MEDS: PROTONIX PO SCH ×2 (08:18→22:04)
[2019-10-08] MEDS: PRAMIPEXOLE DI HCL PO SCH (08:18)
[2019-10-08] MEDS: CENTRUM SILVER PO SCH (08:18)
[2019-10-08] MEDS ORDERED: LASIX IV SCH (10:00)
--- NOTE | 2019-10-08 10:34 | GASTROENTEROLOGY PROGRESS NOTE ---
DATE: 10/08/2019 SUBJECTIVE: Mr. Victor is a 69-year-old male. He was sitting in bed and having his breakfast. Patient has denied any complaints of nausea, vomiting, or abdominal pain. The patient had some bowel movements yesterday, and they were black and tarry. OBJECTIVE: Vital Signs: Temperature 98.2 degrees, pulse 70, respirations 15, blood pressure 99/65, oxygen saturation 92% on room air. His weight is 270 pounds. BMI is 33.0 kg/m2. General: He is alert, oriented x3, and in no acute distress. HEENT: Pale conjunctivae. No icterus. PERRL. Neck: Supple. Lungs: Clear to auscultation in the anterior randall. Cardiovascular: Regular rate and rhythm. Abdomen: Obese, soft, nontender. Active bowel sounds heard in all 4 quadrants. Extremities: No clubbing, no cyanosis. Generalized edema in the lower extremities. Neurologic: Alert and oriented x3. LABS: WBCs are 5.90, RBC 2.70, hemoglobin 8.2, hematocrit 24.9, platelet count is 324. Sodium is 136, potassium 4.3, chloride 102, carbon dioxide 20, anion gap 14. BUN 75, creatinine 3.5, glucose 203, calcium 9.1, phosphorus 4.4, and albumin is 2.9. X-RAYS: Chest x-ray on 10/07 showed stable exam. IMPRESSION: - GI bleed - Blood loss anemia - Nanci esophagitis - Gastritis - Duodenitis - Parkinson's disease - CHF - DAVID PLAN: Mr. Victor is a 69-year-old male with a history of congestive heart failure and Parkinson disease. GI is following him for his worsening anemia. His hemoglobin and hematocrit today are 8.2 and 24.9. It has trending downward. We plan to do a colonoscopy on Friday. The patient had an EGD done and it showed that he had some Nanci esophagitis, duodenitis and gastritis. Currently, the patient has denied any nausea, vomiting or abdominal pain. He is able to tolerate his diet well. We will continue to monitor his hemoglobin and hematocrit. For his Nanci esophagitis, he is receiving Diflucan 200 mg IV. He is on a GI prophylaxis, Protonix 40 mg p.o. twice a day. The patient is also on Primacor per painter helper spray. Patient will be on clear liquids on Friday and Friday, will drink 1/2 of the colon prep on Friday and 1/2 on Friday. Further plan of care will be based on the colonoscopy findings. This plan was discussed with Dr. Andersen. Please call us for any further questions or concerns. Dictated by AFTAB Marcus for Octavio Andersen MD Physician Attestation I have seen and examined the patient. I have discussed and reviewed the note by Dionne UGALDE and agree with findings and plan as documented. AZEEM
[2019-10-08] MEDS: LASIX 100 MG in NS 25 ML IV SCH ×2 (11:39→20:48)
[2019-10-08] MEDS ORDERED: ISORDIL PO SCH (17:00)
--- NOTE | 2019-10-08 20:20 | NEPHROLOGY PROGRESS NOTE ---
DATE: 10/08/2019 SUBJECTIVE: He does not have any shortness of breath this morning. He is more alert and appropriate. OBJECTIVE: Vital Signs: Blood pressure 99/65, heart rate 70, respirations 15, afebrile, intake 1300 mL, output 500 mL. General: No acute distress. Skin: Warm and dry. Neck: Vein distention is present. Trachea is midline. Heart: PMI is enlarged and displaced. Regular rate and rhythm with systolic murmur. Lungs: Have equal breath sounds. No crackles. Abdomen: Soft, nontender. Bowel sounds present. Extremities: With 3+ edema. No clubbing or cyanosis. IMPRESSION: Acute kidney injury overlying chronic kidney disease stage 3B, likely cardiorenal in origin. He is currently receiving Milrinone but no diuretic therapy. He received a single dose 80 mg on yesterday evening of Lasix. I will schedule Lasix today, and I will stop his Entresto. I will also hold his Flomax for blood pressure reasons. No other changes. cc: Brandon Gambino MD
[2019-10-08] MEDS: ISORDIL PO SCH (20:48)
--- NOTE | 2019-10-08 22:04 | PROGRESS NOTE ---
DATE: 10/08/2019 SUBJECTIVE: This morning Mr. Victor refers to be doing fairly the same. No new complaints. OBJECTIVE: Current vitals: Blood pressure is 123/50, pulse of 68, respirations 12, temperature 97.8 degrees. Patient is saturating 97% on room air. General: Mr. Victor is a 69-year-old male. He is in bed, no distress. Mucosa is pink and moist. Anicteric. Acyanotic. Neck: Supple. Chest: Good air entry bilaterally. There were a few crackles in the posterior lung randall. Cardiovascular: Regular rate and rhythm with occasional extrasystolic beats. Gastrointestinal: Abdomen is soft, minimally distended. There is some edema on the lateral aspect of the abdominal wall. Extremities: About 1 to 2+ pedal edema. There is also edema on the upper thighs. Central nervous system: Patient is awake, alert. Follows basic commands. LABORATORY DATA: WBC is 5.90, hemoglobin is 8.2, platelet count 224,000. Chemistry is also reviewed. BUN has gone up to 75 with a creatinine of 3.5, which is also worse. CURRENT MEDICATIONS: Have also been reviewed. He has been started on Lasix drip. ASSESSMENT: 1. Altered mental status on presentation secondary to global encephalopathy on background of dementia, improved. 2. Fluid overload secondary to systolic heart failure. Patient's ejection fraction is 35% to 40% associated with biventricular enlargement on echocardiogram. Cardiology is on board. 3. History of coronary artery disease status post stents in the past. 4. Diabetes mellitus with presenting A1c of 7.6. We will continue with the insulin regimen, and we will titrate this up. 5. Acute on chronic kidney disease. The patient's creatinine continues to increase. Nephrology is on board and will follow up with further recommendations from them. 6. Transaminitis secondary to congestive hepatopathy. We will follow up. 7. Normocytic anemia. Patient is status post 2 packed red blood cell transfusions. Hemoglobin and hematocrit are better. 8. Esophageal candidiasis. Patient is on fluconazole. 9. Gastritis and duodenitis on esophagogastroduodenoscopy. We will continue with proton pump inhibitor. 10. Chronic atrial fibrillation. The patient is currently in sinus with multiple premature ventricular contractions. The patient has been deemed not anticoagulant candidate. 11. History of Parkinson disease. 12. Alzheimer dementia. 13. Gram-negative in urine. Patient is on antimicrobial coverage. He will be pending the ID and sensitivity. The patient disposition is going to depend on the rest of the hospital course. cc: MD AZEEM Castro
[2019-10-09] MEDS: ZOSYN 2.25 GM in NS 50 ML IV SCH (03:05)
[2019-10-09] MEDS: LASIX 100 MG in NS 25 ML IV SCH ×3 (05:17→21:10)
[2019-10-09] MEDS: PRIMACOR 20 MG/D5W 100 ML 20 MG/100 ML IVPB IV SCH ×3 (05:21→19:34)
[2019-10-09] MEDS: HUMULIN R SUBQ SCH ×4 (06:19→21:10)
[2019-10-09 07:11] LABS: HEMATOCRIT 25.7 % (42.0-52.0); HEMOGLOBIN 8.6 g/dL (14.0-18.0); MCH 30.9 PG (27-31); MCHC 33.5 g/dL (33-37); MCV 92.4 FL (81-99); MPV 10.2 FL (7.4-10.4); RBC 2.78 XMIL (4.7-6.1); RDW 15.7 % (11.5-14.5); WBC 6.25 X1000 (4.8-10.8)
[2019-10-09 07:40] LABS: CALCIUM 8.7 mg/dL (8.8-10.2); CREATININE 3.8 mg/dL (0.7-1.2); PHOSPHORUS 4.5 mg/dL (2.7-4.5); POTASSIUM 4.7 mmol/L (3.5-5.1)
[2019-10-09] MEDS ORDERED: GOLYTELY PO ONE (08:00)
[2019-10-09] MEDS: DIFLUCAN 200 MG/NS 200 MG/100 ML IVPB IV SCH (08:50)
[2019-10-09] MEDS: PROTONIX PO SCH ×2 (08:52→21:10)
[2019-10-09] MEDS: NEURONTIN PO SCH ×3 (08:52→21:10)
[2019-10-09] MEDS: PRAMIPEXOLE DI HCL PO SCH (08:53)
[2019-10-09] MEDS: ISORDIL PO SCH ×3 (08:53→21:10)
[2019-10-09] MEDS: ZOFRAN IV SCH ×3 (08:53→16:36)
[2019-10-09] MEDS: ICAR-C PLUS PO SCH ×2 (08:53→21:10)
[2019-10-09] MEDS: COREG PO SCH ×2 (08:53→21:10)
[2019-10-09] MEDS: KLOR-CON PO SCH (08:53)
[2019-10-09] MEDS: APRESOLINE PO SCH ×3 (08:53→21:10)
[2019-10-09] MEDS: MIRALAX PO SCH (08:53)
[2019-10-09] MEDS: PLAVIX PO SCH (08:53)
[2019-10-09] MEDS: CENTRUM SILVER PO SCH (08:54)
[2019-10-09] MEDS: LANTUS INSULIN SUBQ SCH (08:59)
[2019-10-09] MEDS ORDERED: LEVAQUIN PO SCH (09:00)
[2019-10-09] MEDS: ALBUMIN 25% IV SCH (18:37)
[2019-10-09 20:43] LABS: UR CREATININE 82.2 mg/dL (14-26); UR PROTEIN 19.4 mg/dL
[2019-10-09 20:45] LABS: CREATININE 3.6 mg/dL (0.7-1.2); UR CREATININE TOTAL 287.7 mg/24 (800-1800)
[2019-10-09] MEDS: LIPITOR PO SCH (21:10)
[2019-10-10] MEDS: PRIMACOR 20 MG/D5W 100 ML 20 MG/100 ML IVPB IV SCH ×2 (02:36→10:43)
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
[2019-10-10] MEDS: LASIX 100 MG in NS 25 ML IV SCH ×3 (04:56→20:32)
[2019-10-10] MEDS: HUMULIN R SUBQ SCH ×4 (06:28→20:35)
[2019-10-10] MEDS: ZOFRAN IV SCH ×3 (06:28→16:33)
[2019-10-10 06:31] LABS: HEMATOCRIT 24.5 % (42.0-52.0); HEMOGLOBIN 8.2 g/dL (14.0-18.0); MCH 31.2 PG (27-31); MCHC 33.5 g/dL (33-37); MCV 93.2 FL (81-99); MPV 10.2 FL (7.4-10.4); RBC 2.63 XMIL (4.7-6.1); RDW 15.7 % (11.5-14.5); WBC 6.19 X1000 (4.8-10.8)
[2019-10-10 07:16] LABS: ALBUMIN 3.1 g/dL (3.5-5.0); CALCIUM 9.3 mg/dL (8.8-10.2); CREATININE 3.7 mg/dL (0.7-1.2); PHOSPHORUS 4.6 mg/dL (2.7-4.5); POTASSIUM 4.6 mmol/L (3.5-5.1)
--- NOTE | 2019-10-10 07:40 | NEPHROLOGY PROGRESS NOTE ---
DATE: 10/09/2019 SUBJECTIVE: He states he is doing better. Denies shortness of breath, and he is on room air. OBJECTIVE: Vital Signs: Blood pressure 130/63, heart rate 90, respirations 22, temperature 99.8 degrees. Intake 2 L, output 4.2 L. General: No acute distress. Skin: Warm and dry. Neck: Neck veins are distended. Heart: Regular. Lungs: Equal. No crackles. Abdomen: Soft, nontender. Extremities: There is 3+ edema. No clubbing or cyanosis. IMPRESSION: Acute kidney injury overlying chronic kidney disease stage 3. BUN and creatinine continue to rise, but he is responding nicely to diuretics and Milrinone. Continue this therapy over the weekend. cc: Brandon Gambino MD
[2019-10-10] MEDS ORDERED: GOLYTELY PO ONE ×2 (08:00→14:00)
[2019-10-10] MEDS: DIFLUCAN 200 MG/NS 200 MG/100 ML IVPB IV SCH (08:09)
[2019-10-10] MEDS: NEURONTIN PO SCH ×4 (08:10→20:31)
[2019-10-10] MEDS: APRESOLINE PO SCH ×3 (09:14→20:32)
[2019-10-10] MEDS: ISORDIL PO SCH ×4 (09:14→20:35)
[2019-10-10] MEDS: ALBUMIN 25% IV SCH (09:14)
[2019-10-10] MEDS: LEVAQUIN PO SCH (09:15)
[2019-10-10] MEDS: ICAR-C PLUS PO SCH ×2 (09:15→20:32)
[2019-10-10] MEDS: CENTRUM SILVER PO SCH (09:15)
[2019-10-10] MEDS: PLAVIX PO SCH (09:15)
[2019-10-10] MEDS: KLOR-CON PO SCH (09:16)
[2019-10-10] MEDS: COREG PO SCH ×2 (09:16→20:31)
[2019-10-10] MEDS: PRAMIPEXOLE DI HCL PO SCH (09:16)
[2019-10-10] MEDS: MIRALAX PO SCH (09:16)
[2019-10-10] MEDS: PROTONIX PO SCH ×2 (09:16→20:31)
[2019-10-10] MEDS: LANTUS INSULIN SUBQ SCH (09:16)
--- NOTE | 2019-10-10 12:05 | PROGRESS NOTE ---
DATE: 10/10/2019 SUBJECTIVE: This morning, Mr. Victor refers to be doing okay. Denies any new complaints. He is still remarkably edematous. Per the nursing staff, there was some purulence coming around his Maurer catheter. This had been reported before, and it has been cultured, and it showed E. coli and Klebsiella. The same E. coli was also in the catheter urine. We plan to change the catheter today. OBJECTIVE: Vital signs: Blood pressure is 121/57, pulse of 71, respirations 17, temperature is a 98.6 degrees. General: Mr. Victor is a 69-year-old gentleman. He is in bed, no distress. HEENT: Mucosa is pink and moist. Anicteric. Acyanotic. Neck: Supple. Still mild JVD. Chest: Air entry is bilaterally reduced. There are crackles posteriorly. Cardiovascular: Regular rate and rhythm with occasional extrasystolic beats. On the patient monitor, seems to be going in and out of bigeminy. GI: Abdomen is soft, it is distended. Edema on the lateral aspect noted. Extremities: About 3+ pedal edema all the way to the upper thigh. : Maurer catheter is still in place. There is a very small purulence around the urethra and the catheter. ORDER TRACER: Patient is awake, alert, and oriented. INPUT AND OUTPUT: The patient's urine output is 1525. The patient is currently negative balance of 3315. LABORATORY DATA: Hemoglobin is 8.2. Chemistry is also reviewed. Creatinine is 3.7, BUN is up to 91, glucose is also elevated. The patient's 24-hour urine protein was just 68. ASSESSMENT: 1. Altered mental status on presentation secondary to global encephalopathy on background of dementia, improved. The patient's mentation is back to his baseline. 2. Fluid overload, presumably from congestive heart failure and renal failure. The patient continues to be remarkably edematous despite being fluid negative. He is on large doses of Lasix. His creatinine is going up as well as his BUN. I think patient is a third spacing. We will wait on Nephrology for further recommendation. If his renal function continues to be worsening, I think he might be evaluated for dialysis pending Nephrology recommendations. 3. Systolic heart failure with ejection fraction of 35% to 40%, associated with biventricular enlargement on echo. 4. History of coronary artery disease, status post stent in the past, currently asymptomatic. 5. Diabetes mellitus with presenting A1c of 7.6. Patient remains hyperglycemic. We are going to up titrate his insulin regimen. 6. Acute on chronic renal failure. Kidney function continues to be worsening. We will follow up with further recommendations from Nephrology. 7. Transaminitis secondary to congestive hepatopathy. 8. Normocytic anemia. The patient is status post 2 PRBC transfusion. 9. Esophageal candidiasis on EGD. Patient is currently on fluconazole. 10. Gastritis and duodenitis. We will continue with PPI. 11. Chronic atrial fibrillation. The patient is currently in sinus with PVCs and bigeminy. 12. History of Parkinson disease. 13. Alzheimer's disease. 14. Escherichia coli urinary tract infection associated with E. coli and Klebsiella pneumoniae, purulence in the urethra. The patient is on Levaquin. We are going to change his Maurer catheter today. In general, I think Mr. Victor remains fairly stable. He is pending a colonoscopy tomorrow. His creatinine and BUN continue to be worsening. He is currently negative balance per I's and O's. He is also getting albumin. We will wait for further recommendations from the other subspecialties involved with his care. cc: Jermaine De Leon MD MTDD
[2019-10-10] MEDS: LIPITOR PO SCH (20:32)
[2019-10-11] MEDS: LASIX 100 MG in NS 25 ML IV SCH ×3 (04:59→20:09)
[2019-10-11 05:33] LABS: ALBUMIN 3.6 g/dL (3.5-5.0); CALCIUM 9.6 mg/dL (8.8-10.2); CREATININE 3.7 mg/dL (0.7-1.2); PHOSPHORUS 5.1 mg/dL (2.7-4.5); POTASSIUM 4.7 mmol/L (3.5-5.1)
[2019-10-11 05:36] LABS: HEMATOCRIT 25.7 % (42.0-52.0); HEMOGLOBIN 8.4 g/dL (14.0-18.0); MCH 30.4 PG (27-31); MCHC 32.7 g/dL (33-37); MCV 93.1 FL (81-99); MPV 10.3 FL (7.4-10.4); RBC 2.76 XMIL (4.7-6.1); RDW 15.8 % (11.5-14.5); WBC 5.92 X1000 (4.8-10.8)
[2019-10-11] MEDS: HUMULIN R SUBQ SCH ×4 (06:19→20:09)
[2019-10-11] MEDS: ZOFRAN IV SCH ×3 (06:22→17:12)
[2019-10-11] MEDS: ISORDIL PO SCH ×3 (08:48→20:09)
[2019-10-11] MEDS: CENTRUM SILVER PO SCH (08:48)
[2019-10-11] MEDS: COREG PO SCH ×2 (08:48→20:09)
[2019-10-11] MEDS: PROTONIX PO SCH ×2 (08:48→20:09)
[2019-10-11] MEDS: LEVAQUIN PO SCH (08:48)
[2019-10-11] MEDS: ICAR-C PLUS PO SCH ×2 (08:48→20:09)
[2019-10-11] MEDS: NEURONTIN PO SCH ×3 (08:48→20:09)
[2019-10-11] MEDS: APRESOLINE PO SCH ×3 (08:49→20:09)
[2019-10-11] MEDS: PLAVIX PO SCH (08:49)
[2019-10-11] MEDS: LANTUS INSULIN SUBQ SCH (08:49)
[2019-10-11] MEDS: KLOR-CON PO SCH (08:49)
[2019-10-11] MEDS: DIFLUCAN PO SCH (08:49)
[2019-10-11] MEDS: PRAMIPEXOLE DI HCL PO SCH (08:49)
[2019-10-11] MEDS: MIRALAX PO SCH (08:49)
[2019-10-11] MEDS: ALBUMIN 25% IV SCH (08:50)
--- NOTE | 2019-10-11 09:04 | CARDIOLOGY PROGRESS NOTE ---
DATE: 10/08/2019 CHIEF COMPLAINT: Shortness of breath, swelling, and tenderness. SUBJECTIVE: Mr. Victor is feeling somewhat better. Still swollen. Abdomen is tight. He ate lunch. He feels comfortable. OBJECTIVE: Blood pressure 123/50, temperature 97.8 degrees, pulse 68, and respirations 12. General: Elderly in no distress. Somewhat pale. HEENT: Unremarkable. Chest: Diminished breath sounds of the patient's right lung. Heart: Sounds are irregularly irregular. No gallop or murmur noted. Abdomen: Somewhat hard and possibly fluid present there. Ascites. Does not feel any hepatomegaly. Extremities: 2 to 3+ edema. Neurological: Nonfocal. Moves 4 extremities. LABORATORY: Blood work sodium 136, potassium 4.3, BUN 75, and creatinine 2.5. Albumin 2.9. IMPRESSION: 1. The patient who presented with increasing swelling consistent with congestive heart failure. 2. Chronic kidney disease. This may be more than a stage 3, probably 4, possibly with nephrotic syndrome. 3. History of coronary heart disease. A myocardial infarction with a stent to the left circumflex. 4. Moderate to severe pulmonary hypertension, possibly case of cor pulmonale. 5. Diabetes mellitus type 2. 6. History of Parkinson's disease. RECOMMENDATIONS: At this time, I would suggest to continue aggressive management of his congestive heart failure. We will probably continue Milrinone for another day or so. Then, do a 24 hour urine collection to make sure that we are not missing more severe chronic kidney disease. We will check protein also over 24 hours. We will follow along. I am going to make sure that he is on isosorbide dinitrate plus hydralazine, tried on isosorbide mononitrate. We will see how he does. cc: Justyn Pickard MD
--- NOTE | 2019-10-11 10:31 | NEPHROLOGY PROGRESS NOTE ---
DATE: 10/11/2019 SUBJECTIVE: The patient is sitting up in bed. He does not appear in distress. OBJECTIVE: Vital Signs: Temperature 98.1 degrees, pulse 66, respiratory rate 15, blood pressure 137/74. Intake 2.4 L, output 2.1 L. General: This is an elderly, chronically ill-appearing gentleman, sitting up in bed. He is in no acute distress. HEENT: Normocephalic, atraumatic. [place]. Neck: Supple with trace JVD. Cardiovascular: Regular rate and rhythm with a murmur, systolic. Pulmonary: Clear bilaterally. Equal excursion. Abdomen: Soft with positive bowel sounds. : Maurer catheter, clear-yellow urine. Extremities: There is 3+ edema. Integumentary: Skin is warm and dry. Neurologic: The patient is slow with response, but appropriate. LABORATORY DATA: WBC of 5.9, hemoglobin 8.4. Sodium 134, potassium 4.7, CO2 of 19, creatinine 3.7. ASSESSMENT AND PLAN: 1. Chronic kidney disease stage IIIB with acute overlying chronic kidney disease, likely cardiorenal in origin. Continues with milrinone. Urine output has been acceptable over the last 24 hours. We will continue to monitor closely, and make decisions on a daily basis. As he has had no worsening with the creatinine over the last 24 hours, will hold off any intervention other than current treatment plan today. Unclear if the patient would be an adequate dialysis candidate secondary to his history of dementia and question of understanding ability to cooperate with the treatment plan. 2. Electrolytes and acid-base balance. These are acceptable. 3. Anemia. Hemoglobin has been fairly stable now for over a week at this level. Continue to monitor. 4. Congestive heart failure, Cardiorenal. Continue with current treatment plan. 5. Escherichia coli urinary tract infection with Klebsiella, on appropriately dosed antibiotics. Dictated by AFTAB Mcdonald for Brandon Gambino MD Face to face encounter, data reviewed, discussed with Rafael Fish on 10/11/19. I agree with the above assessment and plan of care. cc: Brandon Gambino MD [facility]
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
--- NOTE | 2019-10-11 12:18 | Diag Imaging Result Doc PS360 ---
CHEST-PORTABLE - 10/11/2019 INDICATION: NGT placement COMPARISON: 10/07/2019 FINDINGS: There is a nasogastric tube with the tip entering the stomach. This is in good position. There is stable significant cardiomegaly. IMPRESSION: Nasogastric tube in the stomach. Electronically signed by Von Schneider 10/11/2019 12:15 PM
[2019-10-11] MEDS: GOLYTELY PO ONE ×2 (12:33→17:46)
--- NOTE | 2019-10-11 15:53 | PROGRESS NOTE ---
DATE: 10/11/2019 SUBJECTIVE: This morning Mr. Victor refers to be doing fairly okay. Does not really talk a whole lot, but he did not have any new complaints. He has now an NG tube, mainly for bowel prep since he did not drink the GoLYTELY himself yesterday. OBJECTIVE: Vital Signs: Blood pressure is 131/69, pulse of 64, respirations 17, temperature is 98.3 degrees. General: Mr. Victor is a 69-year-old gentleman. He is in bed, in no distress. Mucosa is pink and moist. Anicteric. Acyanotic. Neck: Supple. Chest: Air entry is bilaterally reduced. A few crackles posteriorly. Cardiovascular: Regular rate and rhythm with occasional extrasystolic beat. Gastrointestinal: Abdomen is soft, distended. There is edema on the lateral aspect of the abdominal wall. There is some edema also on the lower extremity about 3+. Maurer catheter is still in place. Central Nervous System: Patient is awake, alert. Input and Output: Urine output was 2100. He is currently negative balance of 2981. LABORATORY DATA: WBC is 5.92, hemoglobin is 8.4, platelet count of 243,000. Chemistry is also reviewed. Creatinine remains 3.7, BUN is 91. ASSESSMENT: 1. Altered mental status on presentation secondary to global encephalopathy on background of dementia. The patient seems to be at his baseline. 2. Fluid overload, presumably combination of congestive heart failure and renal failure. The patient continues to be on high doses of Lasix. BUN and creatinine remain stable overnight. He is making adequate urine, and he is currently negative balance despite obvious fluid overload on physical exam. 3. Systolic heart failure with ejection fraction of 35% to 40% associated with biventricular enlargement on echocardiogram. Cardiology is on board. The patient is on hydralazine with Isordil and Coreg. 4. History of coronary artery disease, status post stents, currently asymptomatic. We will continue with aspirin, statin, and Coreg. 5. Diabetes mellitus with presenting A1c of 7.6. The patient is on insulin regimen. 6. Acute on chronic renal failure, presumably cardiorenal on background. Nephrology is on board. 7. Transaminitis secondary to congestive hepatopathy. 8. Normocytic anemia. The patient is status post 2 packed red blood cells during the hospital course. Hemoglobin and hematocrit remain stable. 9. Esophageal candidiasis/gastritis and duodenitis during on esophagogastroduodenoscopy. 10. Chronic atrial fibrillation, currently rate controlled in sinus with premature ventricular contractions and bigeminy noted. 11. Escherichia coli urinary tract infection and Escherichia coli with Klebsiella pneumoniae urethritis. The patient is on Levaquin. Maurer catheter was changed yesterday. PLAN: In general, I think Mr. Victor has been in the hospital for the past 14 days. He initially presented because of altered mental status, which CT scan was unremarkable. It turns out he had a urinary tract infection and also fluid overload. Infection seems to have cleared and his mentation seems to have improved. It looks like he has an underlying dementia, which seems to be baseline. His hospital course has been complicated with fluid overload and renal function worsening. He has been on milrinone drip for some time. This has been discontinued. He is currently on high doses of Lasix. He is making adequate urine. However, he still remains remarkably edematous. We are going to continue following further recommendations from Nephrology and Cardiology. We appreciate the help from the subspecialties involved with the care. cc: Jermaine De Leon MD
[2019-10-11] MEDS: LIPITOR PO SCH (20:09)
[2019-10-12] MEDS: LASIX 100 MG in NS 25 ML IV SCH ×3 (05:27→20:18)
[2019-10-12 06:09] LABS: HEMATOCRIT 28.3 % (42.0-52.0); HEMOGLOBIN 9.3 g/dL (14.0-18.0); MCH 30.6 PG (27-31); MCHC 32.9 g/dL (33-37); MCV 93.1 FL (81-99); MPV 10.4 FL (7.4-10.4); RBC 3.04 XMIL (4.7-6.1); RDW 15.9 % (11.5-14.5); WBC 6.33 X1000 (4.8-10.8)
[2019-10-12] MEDS: ZOFRAN IV SCH ×3 (06:10→16:06)
[2019-10-12] MEDS: HUMULIN R SUBQ SCH ×4 (06:10→20:30)
[2019-10-12] MEDS ORDERED: DIPRIVAN 1% ONE (06:10)
[2019-10-12] MEDS ORDERED: XYLOCAINE-MPF 2% ONE (06:45)
[2019-10-12 06:52] LABS: ALBUMIN 3.9 g/dL (3.5-5.0); CALCIUM 10.1 mg/dL (8.8-10.2); CREATININE 3.1 mg/dL (0.7-1.2); PHOSPHORUS 4.8 mg/dL (2.7-4.5); POTASSIUM 5.1 mmol/L (3.5-5.1)
[2019-10-12] MEDS ORDERED: FENTANYL ONE (08:08)
[2019-10-12] MEDS: ISORDIL PO SCH ×3 (10:12→20:17)
[2019-10-12] MEDS: ICAR-C PLUS PO SCH ×2 (10:12→20:18)
[2019-10-12] MEDS: MIRALAX PO SCH (10:12)
[2019-10-12] MEDS: LEVAQUIN PO SCH (10:13)
[2019-10-12] MEDS: COREG PO SCH ×2 (10:13→20:18)
[2019-10-12] MEDS: LANTUS INSULIN SUBQ SCH (10:13)
[2019-10-12] MEDS: DIFLUCAN PO SCH (10:13)
[2019-10-12] MEDS: CENTRUM SILVER PO SCH (10:13)
[2019-10-12] MEDS: NEURONTIN PO SCH ×3 (10:13→20:18)
[2019-10-12] MEDS: PROTONIX PO SCH ×2 (10:14→20:30)
[2019-10-12] MEDS: KLOR-CON PO SCH (10:14)
[2019-10-12] MEDS: APRESOLINE PO SCH ×3 (10:14→20:19)
[2019-10-12] MEDS: PRAMIPEXOLE DI HCL PO SCH (10:14)
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
--- NOTE | 2019-10-12 16:19 | PROVIDER PROGRESS NOTE ---
Progress Note Subjective: Denies any complaints. Voices having a scope scheduled for today. Objective: temperature 8.7, pulse 62, respirations 14, blood pressure 167/76, 02 sat 99% on room air. General: Elderly -[place] male lying in bed in no acute distress HEENT: normocephalic, atraumatic, pupils equal and reactive, membranes moist, trachea midline Skin: warm and dry Neck: supple, 8 cm JVD noted Cardiovascular: distant, S1S2, regular rate and rhythm. No murmurs or gallop noted. Respiratory: clear with equal air entry bilaterally Abdomen: soft, nontender, nondistended, bowel sounds hypoactive : non inspected Extremities: 2+ edema to BLE and BUE. Neurological: alert, able to follow commands. Oriented to person and place. Labs: WBC 6.33, hemoglobin 9.3, hematocrit 28.3, count 387, sodium 138, potassium 5.1, chloride 98, carbon dioxide 21, BUN 84, creatinine 3.1. Intake 80, output 6500. Impression: Acute on chronic kidney disease. Cardiorenal. Urine output increased. Creatinine trending down. Unsure if he will be a dialysis candidate due to cognitive impairment. Unclear if he could give consent. At any rate, he seems to be improving now. Will continue to monitor. Blood pressure. In target. Anemia. Low but stable. Fluid volume. expanded. On milrinone drip. Electrolytes and acid base balance. Stable. Medication review. No changes.
--- NOTE | 2019-10-12 17:25 | PROGRESS NOTE ---
DATE: 10/12/2019 SUBJECTIVE: 1. I saw Mr. Victor who was admitted on 09/27/2019. He is known to have coronary artery disease and is status post several stents. [employer] is from [place]. Had some swelling in the lower extremities. Uses a walker to ambulate. Mr. Victor had been fairly stable. Spent holidays with at his sister's house. Came home about 3 days before admission and was noted to have swelling. The night before admission was found wandering in the house and seemed to be completely confused, not able to recognize the daughter, and so brought him into the emergency room. He was admitted with acute confusional state, altered mental status. CT scan of the head was unremarkable. He appeared to have global encephalopathy, possibly related to medications or underlying occult infection. 2. Congestive heart failure, ejection fraction known be 35 to 40%, left ventricular inferior wall abnormality. 3. Coronary artery disease status post stents. 4. Severe biventricular failure. 5. History of Parkinson disease. 6. Renal failure. 7. Significant proteinuria on urinalysis, presumably diabetic nephropathy. 8. Diabetes mellitus. Dr. Honeycutt consulted for Cardiology and felt he had cardiomyopathy, moderate to severe pulmonary hypertension, atherosclerotic coronary artery disease, previous coronary angioplasty, stenting of left circumflex with a drug-eluting stent, hypertension, hyperlipidemia, diabetes mellitus type 2, gastroesophageal reflux disease, Parkinson disease, and gout. GI was consulted for anemia. The patient is on anticoagulants. Wanted to hold off on EGD, but the EGD I think was done; that was done on 10/04/2019. Candidal esophagitis, moderate degree throughout the esophagus, reflux esophagitis LA grade B was noted distal esophagus, large amount of retained food noted in the fundus, cardia, body, and pylorus, partly evacuated. Underlying gastritis noted. Duodenal inflammation found in the duodenal bulb. Duodenal mucosa showed no abnormalities in the second part of the duodenum. The patient was awake. He said he was feeling better. OBJECTIVE: Vital Signs: Temperature 98 degrees, pulse 57, respirations 13, blood pressure 155/67. HEENT: Pupils are equal and round. Lungs: Clear in all lung randall. Cardiovascular: Regular rhythm and rate without murmur or S3. Urine output was 10 L. Blood sugar 108, 128, 125. ASSESSMENT AND PLAN: 1. Altered mental status on presentation secondary to global encephalopathy on the background of dementia. The patient seems to be back to baseline. 2. Fluid overload, presumably a combination of congestive heart failure, renal failure. The patient continues to be on high doses of Lasix. BUN and creatinine remain stable. Making adequate urine. Currently negative balance despite obvious overload on physical exam. 3. Systolic heart failure, ejection fraction 35 to 40%, associated with biventricular enlargement on the echocardiogram. Cardiology is helping. He is on hydralazine, Isordil, and Coreg. 4. History of coronary artery disease status post stents. Currently no sign of active ischemia. He is on aspirin statin, and Coreg. 5. Diabetes mellitus type 2. Hemoglobin A1c was 7.6. Continue his pattern sugars and sliding scale. 6. Acute on chronic renal failure, presumably cardiorenal in background. Nephrology has been helping. 7. Transaminitis secondary to congestive hepatopathy. 8. Normocytic anemia. He is status post 2 units packed red blood cells during the hospital course. Hemoglobin and hematocrit remain stable. 9. Esophageal candidiasis, gastritis, duodenitis per esophagogastroduodenoscopy. He is on a proton pump inhibitor. 10. Chronic atrial fibrillation. Rate is controlled. He does have PVCs and bigeminy noted. 11. Escherichia coli urinary tract infection with Klebsiella pneumoniae urethritis. The patient is on Levaquin. 12. This is the 15th day hospitalization. Initially presented with altered mental status. CT scan was unremarkable. It turns out he had a urinary tract infection, also fluid overload. Infection seems to have cleared and mentation is improving. It looks like he has underlying dementia which seems to be baseline. His hospital course has been complicated with fluid overload and renal function worsening. He has been on a Milrinone drip for some time. This has been discontinued. Currently on doses of Lasix and he is making adequate urine. He still remains edematous, but seems to be improving. Continue present course. REVIEW OF ORDERS: I do not see any change. He is on Lipitor 20 mg at bedtime, Coreg 12.5 mg b.i.d., Diflucan 100 mg daily, Lasix, he is getting 100 mg IV q.8, Neurontin 200 mg p.o. t.i.d., hydralazine 25 mg I think 3 times a day or q.8, insulin glargine which is Lantus 20 units subcutaneous daily, iron carbinol vitamin C 1 b.i.d., isosorbide dinitrate 40 mg p.o. t.i.d., Levaquin 250 mg daily, Reglan 5 mg IV q.6 hours p.r.n., multivitamin 1 a day, Protonix 40 mg b.i.d., MiraLAX 17 g daily, Plavix 75 mg daily. cc: Chau Hernandez MD [facility]
[2019-10-12] MEDS: LIPITOR PO SCH (20:17)
[2019-10-12] MEDS: LOVENOX SUBQ SCH (20:18)
[2019-10-12] MEDS: NORVASC PO SCH (20:30)
--- NOTE | 2019-10-12 21:35 | PROGRESS NOTE ---
DATE: 10/12/2019 SUBJECTIVE: Patient denies shortness of breath or chest discomfort. Urine output has increased significantly with Lasix drip. OBJECTIVE: Vital Signs: Blood pressure 155/67, heart rate 57, oxygen saturation 97%. Neck: Jugular distention is evident consistent with persistent elevation central venous pressure. Chest: Clear to auscultation bilaterally with some diminished breath sounds in the bases. Cardiac: Irregular rate and rhythm without appreciable murmur or gallop. Extremities: Moderate pretibial edema. LABORATORY DATA: Includes a white blood cell count of 6.33, hematocrit 28.3, hemoglobin 9.3. Sodium 138, potassium 5.1, chloride 98, carbon dioxide 21, BUN 84, creatinine 3.1, glucose 110. IMPRESSION: 1. Acute on chronic congestive heart failure. Patient remains volume overloaded. 2. Acute on chronic kidney disease with significant cardiorenal component. Urine output has recently increased in the last 24 hours with Lasix drip. 3. Atherosclerotic coronary disease and previous myocardial infarction and coronary angioplasty/stent to left circumflex coronary artery in October 2018 with drug-eluting stent. 4. Moderate to severe pulmonary hypertension. 5. Cardiomyopathy, with left ventricular ejection fraction 45%. 6. Type 2 diabetes mellitus. RECOMMENDATIONS: 1. Continue diuresis with Lasix drip. 2. Utilize low dose Lovenox 30 mg subcutaneously daily for deep venous thrombosis prophylaxis as patient is unwilling to wear sequential compression devices. cc: Shad Buchanan MD
[2019-10-13] MEDS: LASIX 100 MG in NS 25 ML IV SCH ×3 (05:24→21:00)
[2019-10-13] MEDS: HUMULIN R SUBQ SCH ×4 (06:10→20:27)
[2019-10-13] MEDS: ZOFRAN IV SCH ×3 (06:11→16:11)
[2019-10-13 06:50] LABS: ALBUMIN 3.5 g/dL (3.5-5.0); CREATININE 2.7 mg/dL (0.7-1.2); PHOSPHORUS 4.6 mg/dL (2.7-4.5); POTASSIUM 4.6 mmol/L (3.5-5.1)
[2019-10-13] MEDS: APRESOLINE PO SCH ×3 (08:46→20:59)
[2019-10-13] MEDS: ISORDIL PO SCH ×3 (08:46→21:00)
[2019-10-13] MEDS: LANTUS INSULIN SUBQ SCH (08:48)
[2019-10-13] MEDS: COREG PO SCH ×2 (08:48→20:59)
[2019-10-13] MEDS: KLOR-CON PO SCH (08:48)
[2019-10-13] MEDS: MIRALAX PO SCH (08:48)
[2019-10-13] MEDS: CENTRUM SILVER PO SCH (08:48)
[2019-10-13] MEDS: PROTONIX PO SCH ×2 (08:48→21:00)
[2019-10-13] MEDS: NORVASC PO SCH (08:48)
[2019-10-13] MEDS: NEURONTIN PO SCH ×3 (08:48→20:59)
[2019-10-13] MEDS: ICAR-C PLUS PO SCH ×2 (08:48→21:00)
[2019-10-13] MEDS: PRAMIPEXOLE DI HCL PO SCH (08:48)
[2019-10-13] MEDS: DIFLUCAN PO SCH (08:48)
[2019-10-13] MEDS: LEVAQUIN PO SCH (08:49)
[2019-10-13] MEDS: PLAVIX PO SCH (09:05)
--- NOTE | 2019-10-13 13:23 | PROVIDER PROGRESS NOTE ---
Progress Note Subjective: He denies any complaints. Objective: temperature 97.7, pulse 54, respirations 15, blood pressure 136/64, 02 sat 94% on room air. General: Elderly -[place]ammarinese male lying in bed in no acute distress HEENT: normocephalic, atraumatic, pupils equal and reactive, membranes moist, trachea midline Skin: warm and dry Neck: supple, JVD with hepatojugular reflux Cardiovascular: distant, S1S2, bradycardic ate and rhythm. No murmurs or gallop noted. Respiratory: clear with equal air entry bilaterally Abdomen: soft, nontender, nondistended, bowel sounds hypoactive : non inspected Extremities: 2+ edema to BLE. Neurological: alert, able to follow commands. Oriented to person and place. Labs: sodium 140, potassium 4.6, chloride 99, carbon dioxide, BUN 79, creatinine 2.7. intake 70, output 5800. Impression: Acute on chronic kidney disease. Cardiorenal. Good Urine output. Creatinine trending down. Will continue to monitor. Blood pressure. In target. Anemia. Low but stable. Fluid volume. expanded but improving. On milrinone drip. Electrolytes and acid base balance. Stable. Medication review. No changes.
--- NOTE | 2019-10-13 13:55 | PROGRESS NOTE ---
DATE: 10/13/2019 SUBJECTIVE: He is feeling better. He feels a little stronger. He thinks he is ready to try and go home. I think he would like to get home health. We are looking for possible rehab at [facility] and [facility]. I think that would be his first choice. OBJECTIVE: His temperature is 98.1 degrees, pulse 95, respirations 14, blood pressure 136/57. Pupils are equal and round. Lungs are clear in all lung randall. Cardiovascular Examination: Regular rhythm and rate without murmur or S3. Urine output is 2200 mL. Blood sugars 125, 136, and 170. ASSESSMENT/PLAN: 1. Acute on chronic congestive heart failure. Remained with some volume overload but is improving. 2. Acute on chronic kidney disease, significant cardiorenal component. Urine output has increased. He is on a Lasix drip. 3. Atherosclerotic coronary artery disease, previous myocardial infarction and coronary angioplasty with stent to the left circumflex artery in October 2018, drug-eluting stent. 4. Moderate to severe pulmonary hypertension. 5. Cardiomyopathy, ventricular ejection fraction about 45%. 6. Diabetes mellitus type 2. 7. Transaminitis which is improving and this suggests probably congestive hepatopathy, suggest congestive liver dysfunction. 8. Normocytic anemia. Received 2 units of packed red blood cells. 9. Esophageal candidiasis, gastritis, and duodenitis, on proton pump inhibitor. 10. Chronic atrial fibrillation, rate is controlled so we will see if we can maybe get him to rehab. We are waiting on a bed. LABORATORY DATA: Hematocrit 28, hemoglobin 9.3. Electrolytes: Sodium 140, potassium 4.6, chloride 99, BUN 79, creatinine 2.7. Blood sugars 222, 145, 136, 170. cc: Chau Hernandez MD
--- NOTE | 2019-10-13 15:39 | PROGRESS NOTE ---
DATE: 10/13/2019 SUBJECTIVE: Patient denies shortness of breath or chest discomfort. He continues on intravenous Lasix drip. OBJECTIVE: Vital Signs: Blood pressure 136/57, heart rate 95, oxygen saturation 100% on room air. Neck: Jugular venous distention is present, consistent with elevated central venous pressure. Cardiac exam: Reveals an irregular rate and rhythm without appreciable murmur or gallop. Extremities: Demonstrate mild to moderate pretibial edema. LABORATORY DATA: Includes sodium 140, potassium 4.6, chloride 99, carbon dioxide 24, BUN 79, creatinine 2.7, glucose 145. IMPRESSIONS: 1. Acute on chronic biventricular congestive heart failure, predominantly right-sided, in setting of moderate to severe pulmonary hypertension. 2. Cardiomyopathy with a left ventricular ejection fraction approximately 40%. 3. Atherosclerotic coronary disease and previous myocardial infarction and coronary angioplasty/stenting of left circumflex coronary in October 2018 with drug-eluting stent. 4. Chronic atrial fibrillation. 5. Acute on chronic renal dysfunction. Cardiorenal syndrome suspected. Patient improving with diuresis but remains volume overloaded. 6. Type 2 diabetes mellitus. 7. Recent issue with anemia requiring transfusion. RECOMMENDATIONS: 1. Continue efforts to diurese. 2. Follow renal function closely. 3. For now patient on Plavix 75 mg p.o. daily plus low dose Lovenox subcutaneously for DVT prophylaxis. cc: Shad Buchanan MD
[2019-10-13] MEDS: LIPITOR PO SCH (21:00)
[2019-10-13] MEDS: LOVENOX SUBQ SCH (21:00)
[2019-10-14] MEDS: LASIX 100 MG in NS 25 ML IV SCH (05:20)
[2019-10-14] MEDS: ZOFRAN IV SCH ×4 (05:34→16:17)
[2019-10-14 06:28] LABS: ALBUMIN 3.5 g/dL (3.5-5.0); CALCIUM 9.9 mg/dL (8.8-10.2); CREATININE 2.8 mg/dL (0.7-1.2); PHOSPHORUS 4.5 mg/dL (2.7-4.5); POTASSIUM 4.5 mmol/L (3.5-5.1)
[2019-10-14] MEDS: HUMULIN R SUBQ SCH ×4 (06:28→21:07)
[2019-10-14] MEDS: ISORDIL PO SCH ×3 (08:36→21:06)
[2019-10-14] MEDS: NORVASC PO SCH (08:36)
[2019-10-14] MEDS: ICAR-C PLUS PO SCH ×2 (08:36→21:06)
[2019-10-14] MEDS: APRESOLINE PO SCH ×3 (08:36→21:06)
[2019-10-14] MEDS: COREG PO SCH ×2 (08:36→21:06)
[2019-10-14] MEDS: DIFLUCAN PO SCH (08:36)
[2019-10-14] MEDS: LEVAQUIN PO SCH (08:36)
[2019-10-14] MEDS: CENTRUM SILVER PO SCH (08:36)
[2019-10-14] MEDS: PROTONIX PO SCH ×2 (08:37→21:06)
[2019-10-14] MEDS: MIRALAX PO SCH (08:37)
[2019-10-14] MEDS: PLAVIX PO SCH (08:37)
[2019-10-14] MEDS: KLOR-CON PO SCH (08:37)
[2019-10-14] MEDS: PRAMIPEXOLE DI HCL PO SCH (08:37)
[2019-10-14] MEDS: NEURONTIN PO SCH ×3 (08:37→21:06)
[2019-10-14] MEDS: LANTUS INSULIN SUBQ SCH (08:44)
--- NOTE | 2019-10-14 12:32 | PROGRESS NOTE ---
DATE: 10/14/2019 SUBJECTIVE: He is feels better, feels a little stronger. Breathing is comfortable. He remains afebrile. OBJECTIVE: Temperature 98.3 degrees, pulse 100, respirations 18, blood pressure 135/47. Pupils are equal and round. Lungs are clear in all lung randall. Cardiovascular Examination: Regular rhythm and rate without murmur or S3. Urine output was 1400 mL. ASSESSMENT AND PLAN: 1. 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 2. Cardiomyopathy. Left ventricular ejection fraction is about 40%. 3. Atherosclerotic coronary artery disease, previous myocardial infarction, and coronary angioplasty, stenting of left circumflex done in October 2018 with drug-eluting stent. 4. Chronic atrial fibrillation. 5. Acute on chronic renal dysfunction, cardiorenal syndrome suspected. Patient improving with diuresis but remains in volume overload, but he is improving. His swelling is going down in his legs. 6. Diabetes mellitus type 2. Sugar is well-controlled. 7. Recent issue with anemia requiring transfusion. We are waiting on rehab and I think he will be ready. He would like to go I believe to [facility]. REVIEW OF HIS ORDERS: He is on Norvasc 5 mg a day, Lipitor 20 mg a day, Coreg 12.5 mg b.i.d., Plavix 75 mg a day, Diflucan 100 mg p.o. daily, Neurontin 200 mg t.i.d., hydralazine 25 mg 3 times a day, insulin glargine 20 units subcutaneous daily, iron/carbinol with vitamin C 1 twice a day, isosorbide dinitrate 40 mg p.o. t.i.d., Levaquin 250 mg p.o. daily, Reglan 5 mg IV q.6 hours p.r.n., Protonix 40 mg b.i.d., polyethylene glycol 17 g p.o. daily. REVIEW OF HIS LABORATORY DATA: Hematocrit is stable at 28, hemoglobin 9.3, white count is 6333. Creatinine is 2.8, sodium 140, potassium 4.5, chloride 98, BUN 76, so creatinine has come down. At one point, it was 3.8. cc: Chau Hernandez MD
--- NOTE | 2019-10-14 15:15 | PROVIDER PROGRESS NOTE ---
Progress Note Subjective: patient denies headache, fever chills, nausea and vomiting, shortness of breath. Objective: temperature 98.1, pulse 107, respirations 14, blood pressure 133/80, 02 sat 97% on room air. General: Elderly -[place] male lying in bed in no acute distress HEENT: normocephalic, atraumatic, pupils equal and reactive, membranes moist, trachea midline Skin: warm and dry Neck: supple, 6 cm JVD Cardiovascular: distant, S1S2, irregular rate and rhythm. No murmurs or gallop noted. Respiratory: clear with equal air entry bilaterally Abdomen: soft, nontender, nondistended, bowel sounds hypoactive : non inspected Extremities: 2+ edema to BLE. Neurological: alert, able to follow commands. Oriented to person and place. Labs: sodium 140, potassium 4.5, chloride 98, carbon dioxide 25, BUN 76, creatinine 2.8. Intake 550, output 4550. Impression: Acute on chronic kidney disease. Cardiorenal. Good Urine output. Creatinine sta ble. We will change his IV lasix to PO. Blood pressure. In target. Anemia. Low but stable. Fluid volume. expanded but much improved. Lasix drip stopped and will be on PO lasix. Electrolytes and acid base balance. Stable. Medication review. No changes.
--- NOTE | 2019-10-14 19:10 | CARDIOLOGY PROGRESS NOTE ---
DATE: 10/14/2019 SUBJECTIVE: The patient denies shortness of breath or chest discomfort on room air. OBJECTIVE: Blood pressure 135/57, heart rate 87, oxygen saturation 100% on room air. Jugular venous distention is estimated be around 6-8, and indeed has improved. Auscultation of the chest reveals diminished breath sounds at the bases bilaterally. Cardiac exam reveals an irregular rate and rhythm without appreciable murmur or gallop. Extremities demonstrate very mild edema and have improved considerably. LABORATORY DATA: Includes a sodium 140, potassium 4.5, chloride 98, carbon dioxide 25, BUN 76, creatinine 2.8, glucose 139. Albumin 3.5. IMPRESSION: 1. Mypbb-co-lwjafrf congestive heart failure, predominantly right-sided, in the setting of moderate to severe pulmonary hypertension. The patient has improved considerably. 2. Cardiomyopathy, left ventricular ejection fraction approximately 40% to 45%. 3. Atherosclerotic coronary disease, previous myocardial infarction and coronary angioplasty/stenting of left circumflex coronary artery 10/2018 with drug-eluting stent. 4. Chronic atrial fibrillation. 5. Czfmd-ze-obygyfr renal dysfunction. Cardiorenal syndrome playing a role. Patient improving with diuresis. 6. Type 2 diabetes mellitus. 7. Recent issue with anemia requiring transfusion. RECOMMENDATIONS: 1. Agree with transition from IV Lasix to oral Lasix. 2. For now the patient is on Lovenox 30 mg subcutaneously daily for DVT prophylaxis as well as Plavix 75 mg p.o. daily. Consider use of Eliquis in the future once the patient has further improved. cc: Shad Buchanan MD
[2019-10-14] MEDS: LOVENOX SUBQ SCH (21:07)
[2019-10-14] MEDS: LIPITOR PO SCH (21:11)
[2019-10-15] MEDS: ZOFRAN IV SCH ×3 (06:18→16:14)
[2019-10-15 06:32] LABS: ALBUMIN 3.4 g/dL (3.5-5.0); CALCIUM 9.3 mg/dL (8.8-10.2); PHOSPHORUS 4.2 mg/dL (2.7-4.5); POTASSIUM 4.8 mmol/L (3.5-5.1)
[2019-10-15] MEDS: HUMULIN R SUBQ SCH ×4 (06:58→20:29)
[2019-10-15] MEDS: NEURONTIN PO SCH ×3 (08:46→21:47)
[2019-10-15] MEDS: KLOR-CON PO SCH (08:46)
[2019-10-15] MEDS: LASIX PO SCH (08:46)
[2019-10-15] MEDS: MIRALAX PO SCH (08:46)
[2019-10-15] MEDS: CENTRUM SILVER PO SCH (08:46)
[2019-10-15] MEDS: PLAVIX PO SCH (08:46)
[2019-10-15] MEDS: ISORDIL PO SCH ×3 (08:46→21:47)
[2019-10-15] MEDS: LEVAQUIN PO SCH (08:47)
[2019-10-15] MEDS: APRESOLINE PO SCH ×3 (08:47→21:47)
[2019-10-15] MEDS: PROTONIX PO SCH ×2 (08:47→21:47)
[2019-10-15] MEDS: COREG PO SCH ×2 (08:47→21:47)
[2019-10-15] MEDS: ICAR-C PLUS PO SCH ×2 (08:47→21:47)
[2019-10-15] MEDS: PRAMIPEXOLE DI HCL PO SCH (08:47)
[2019-10-15] MEDS: NORVASC PO SCH (08:47)
[2019-10-15] MEDS: LANTUS INSULIN SUBQ SCH (08:50)
[2019-10-15] MEDS ORDERED: LASIX PO SCH (09:00)
--- NOTE | 2019-10-15 14:21 | PROGRESS NOTE ---
DATE: 10/15/2019 SUBJECTIVE: Mr. Victor is feeling better. He feels like his breathing is better. He feels like his leg swelling has gone down. He is a little stronger. He is eating well. His bowels are moving good. OBJECTIVE: Vital signs: Temperature 98 degrees, pulse 60, respirations 17, blood pressure 147/67. HEENT: Pupils are equal and round. Lungs: Clear in all lung randall. Cardiovascular: Regular rhythm and rate without murmur or S3. Urine output: 2900 mL. LABORATORY DATA: Blood sugar 156, 146, 174. ASSESSMENT AND PLAN: 1. 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 2. Cardiomyopathy. Left ventricular ejection fraction is 40%. 3. Atherosclerotic coronary artery disease, previous myocardial infarction, coronary angioplasty, stenting of the left circumflex in October 2018 with a drug-eluting stent. 4. Chronic atrial fibrillation. Rate is controlled. 5. Acute on chronic renal dysfunction, cardiorenal syndrome suspected. Patient improving. His swelling has diminished. 6. Diabetes mellitus type 2. Sugars well controlled. 7. He had anemia and did get a transfusion. We are waiting on rehab possibilities. We have changed his IV Lasix to p.o. REVIEW OF HIS ORDERS: I do not see any change. He is on Norvasc 5 mg a day, Lipitor 20 mg at bedtime, Coreg 12.5 mg b.i.d., Plavix 75 mg a day, Diflucan 100 mg p.o. daily, Lasix 80 mg p.o. daily, Neurontin 200 mg p.o. t.i.d., hydralazine 25 mg 3 times a day, insulin glargine 20 units subcutaneous daily, iron carbonyl 1 b.i.d., isosorbide dinitrate 40 mg p.o. t.i.d., Levaquin 250 mg p.o. daily, multivitamin 1 a day, Protonix 40 mg b.i.d., MiraLAX 17 g daily, and he is getting pramipexole 1 tablet a day. cc: Cahu Hernandez MD
[2019-10-15] MEDS: DIFLUCAN PO SCH (16:14)
--- NOTE | 2019-10-15 21:09 | NEPHROLOGY PROGRESS NOTE ---
DATE: 10/15/2019 SUBJECTIVE: The patient states that he is doing all right. OBJECTIVE: Vital signs: Temperature 97.7 degrees, pulse 98, respiratory rate 16, blood pressure 142/58. Intake 1.2 L, output 2 L.General: Chronically ill-appearing, elderly gentleman resting in bed. Awake and alert. He is in no distress. HEENT: Normocephalic, atraumatic. Oral mucosa moist. Neck is supple. Positive JVD. Cardiovascular: Regular rate and rhythm. No murmur. Pulmonary: Clear bilaterally. Abdomen soft, positive bowel sounds. not inspected. Extremities: Edema 2+. Integumentary: Skin is warm and dry. Neurologic grossly nonfocal. LABORATORY DATA: Sodium 137, potassium 4.8, CO2 is 27, creatinine 3.0. ASSESSMENT AND PLAN: 1. Luwni-fr-xurtpgu kidney disease. Renal function essentially stable overnight. Urine output has been adequate. Continue to monitor his renal function. 2. Electrolytes, acid-base balance, anemia. These have been stable. 3. Fluid volume. His intravenous Lasix has been changed over to p.o. Urine output again was about 2 L yesterday. 4. Disposition: Continue to follow the patient while he is in the hospital. He will need to follow up in the office approximately 3 weeks after discharge. Dictated by AFTAB Mcdonald for Brandon Gambino MD cc: Brandon Gambino MD
[2019-10-15] MEDS: LOVENOX SUBQ SCH (21:47)
[2019-10-15] MEDS: LIPITOR PO SCH (21:47)
[2019-10-16] MEDS: ZOFRAN IV SCH ×3 (06:00→15:53)
[2019-10-16] MEDS: HUMULIN R SUBQ SCH ×4 (07:28→21:04)
[2019-10-16 07:54] LABS: ALBUMIN 3.5 g/dL (3.5-5.0); CALCIUM 9.1 mg/dL (8.8-10.2); CREATININE 3.2 mg/dL (0.7-1.2); PHOSPHORUS 4.9 mg/dL (2.7-4.5); POTASSIUM 4.7 mmol/L (3.5-5.1)
[2019-10-16] MEDS: ICAR-C PLUS PO SCH ×2 (08:41→21:03)
[2019-10-16] MEDS: NORVASC PO SCH (08:41)
[2019-10-16] MEDS: APRESOLINE PO SCH ×3 (08:41→21:02)
[2019-10-16] MEDS: NEURONTIN PO SCH ×3 (08:41→21:02)
[2019-10-16] MEDS: ISORDIL PO SCH ×3 (08:41→21:03)
[2019-10-16] MEDS: DIFLUCAN PO SCH (08:41)
[2019-10-16] MEDS: PROTONIX PO SCH ×2 (08:42→21:04)
[2019-10-16] MEDS: COREG PO SCH ×2 (08:42→21:03)
[2019-10-16] MEDS: KLOR-CON PO SCH (08:42)
[2019-10-16] MEDS: LASIX PO SCH (08:42)
[2019-10-16] MEDS: CENTRUM SILVER PO SCH (08:42)
[2019-10-16] MEDS: LEVAQUIN PO SCH (08:42)
[2019-10-16] MEDS: PLAVIX PO SCH (08:42)
[2019-10-16] MEDS: LANTUS INSULIN SUBQ SCH (08:43)
[2019-10-16] MEDS: PRAMIPEXOLE DI HCL PO SCH (08:43)
[2019-10-16] MEDS: MIRALAX PO SCH (08:43)
--- NOTE | 2019-10-16 11:55 | PROGRESS NOTE ---
DATE: 10/16/2019 SUBJECTIVE: Mr. Victor is a 69-year-old. He is feeling better, sitting up on side of the bed. His swelling has gone down. His breathing is comfortable and he feels stronger. He wants to see if he can get his Maurer catheter out. OBJECTIVE: Vital signs: Temperature 98.6 degrees, pulse 105, respirations 22, blood pressure 152/73. HEENT: Pupils are equal and round. Lungs: Clear in all lung randall. Cardiovascular: Regular rhythm and rate without murmur or S3. Input and Output: 1800 mL. LABORATORY DATA: Blood sugar 145, 140, 156. ASSESSMENT AND PLAN: 1. Acute on chronic kidney disease. Renal function essentially stable overnight. Urine output has been adequate. Continue to monitor renal function. 2. Electrolytes and acid-base balance are stable. Anemia is stable. 3. Fluid volume. Change him to p.o. Lasix. We will consider maybe getting his Maurer catheter out soon. 4. General weakness and deconditioning. He is trying to go to rehab. 5. Chronic atrial fibrillation, rate is controlled. 6. Atherosclerotic coronary artery disease. He has had a previous myocardial infarction, coronary angioplasty and stenting of the left circumflex back in October 2018. He has a cardiomyopathy with a reduced ejection fraction of 40%. Continue present measures. Consider getting the Maurer catheter out soon. cc: Chau Hernandez MD
[2019-10-16] MEDS: LIPITOR PO SCH (21:02)
[2019-10-16] MEDS: LOVENOX SUBQ SCH (21:02)
[2019-10-17] MEDS: HUMULIN R SUBQ SCH ×4 (06:04→20:23)
[2019-10-17] MEDS: ZOFRAN IV SCH ×3 (06:05→15:39)
--- NOTE | 2019-10-17 07:14 | PROGRESS NOTE ---
DATE: 10/17/2019 SUBJECTIVE: Mr. Victor is doing well, feels good, had a good night's sleep. He had no complaints of pain. It feels like the swelling in his legs has gone down. OBJECTIVE: Vital Signs: Temperature 97.8 degrees, pulse 95, respirations 20, blood pressure 119/51. HEENT: Pupils are equal and round. Lungs: Clear in all lung randall. Cardiovascular: Regular rhythm and rate without murmur or S3. Input and Output: Urine output is 3200 mL. LABORATORY DATA: Blood sugar 144, 125, and 140. ASSESSMENT/PLAN: 1. Acute on chronic kidney disease. Renal function is essentially stable. Urine output has been adequate and I am going to see if we can discontinue his Maurer catheter in preparation for hopefully going to rehab in the next couple of days. 2. Electrolyte, acid-base balance and anemia, stable. 3. Fluid volume. He is on p.o. Lasix. Continues to diurese. His pulmonary venous hypertension and his pedal edema have improved. 4. General weakness, deconditioning. Continue physical therapy. Hope to go to rehab in the next couple of days. 5. Chronic atrial fibrillation, rate is controlled. 6. Atherosclerotic coronary artery disease. He has had previous myocardial infarction, coronary angioplasty and stenting of the left circumflex back in October 2018. Has cardiomyopathy, reduced ejection fraction of 40%. I will see if we can get the Maurer catheter out today. cc: Chau Hernandez MD
[2019-10-17 07:33] LABS: BASO# 0.02 X1000 (0.0-0.2); BASO% 0.3 % (0.0-0.8); EOS# 0.34 X1000 (0.0-0.7); EOS% 5.2 % (0.0-10.0); HEMATOCRIT 29.5 % (42.0-52.0); HEMOGLOBIN 9.3 g/dL (14.0-18.0); LYMPH# 1.28 X1000 (1.2-3.4); LYMPH% 19.5 % (20.5-51.1); MCHC 31.5 g/dL (33-37); MCV 95.2 FL (81-99); MONO# 0.49 X1000 (0.11-0.59); MONO% 7.5 % (1.7-9.3); MPV 10.2 FL (7.4-10.4); NEUT# 4.42 X1000 (1.4-6.5); NEUT% 67.5 % (42.2-75.2); PLT 300 X1000 (130-400); RDW 16.2 % (11.5-14.5); WBC 6.55 X1000 (4.8-10.8)
[2019-10-17 07:48] LABS: ALBUMIN 3.7 g/dL (3.5-5.0); CALCIUM 9.8 mg/dL (8.8-10.2); CREATININE 2.9 mg/dL (0.7-1.2); PHOSPHORUS 4.6 mg/dL (2.7-4.5); POTASSIUM 5.4 mmol/L (3.5-5.1)
[2019-10-17] MEDS: NEURONTIN PO SCH ×3 (08:24→20:21)
[2019-10-17] MEDS: PRAMIPEXOLE DI HCL PO SCH (08:24)
[2019-10-17] MEDS: MIRALAX PO SCH (08:24)
[2019-10-17] MEDS: LASIX PO SCH (08:25)
[2019-10-17] MEDS: FLOMAX PO SCH ×2 (08:25→20:20)
[2019-10-17] MEDS: COREG PO SCH ×2 (08:25→20:19)
[2019-10-17] MEDS: LEVAQUIN PO SCH (08:26)
[2019-10-17] MEDS: APRESOLINE PO SCH ×3 (08:26→20:19)
[2019-10-17] MEDS: DIFLUCAN PO SCH (08:27)
[2019-10-17] MEDS: NORVASC PO SCH (08:27)
[2019-10-17] MEDS: CENTRUM SILVER PO SCH (08:27)
[2019-10-17] MEDS: PLAVIX PO SCH (08:27)
[2019-10-17] MEDS: ISORDIL PO SCH ×3 (08:28→20:20)
[2019-10-17] MEDS: PROTONIX PO SCH ×2 (08:28→20:20)
[2019-10-17] MEDS: ICAR-C PLUS PO SCH ×2 (08:28→20:21)
[2019-10-17] MEDS: MYCOSTATIN POWDER TOP SCH ×2 (08:28→20:23)
[2019-10-17] MEDS: LANTUS INSULIN SUBQ SCH (08:29)
[2019-10-17] MEDS: KLOR-CON PO SCH (08:32)
[2019-10-17] MEDS ORDERED: LASIX IV ONE (11:59)
--- NOTE | 2019-10-17 12:39 | PROGRESS NOTE ---
DATE: 10/17/2019 SUBJECTIVE: Patient continues without chest discomfort or shortness of breath. Appetite is good. Continues on room air. OBJECTIVE: Vital signs: Blood pressure 149/59, heart rate 99, oxygen saturation 100% on room air. Neck: Jugular venous distention is present consistent with elevated central venous pressure of at least 12 cm. Chest: Clear to auscultation bilaterally. Cardiac Exam: Reveals an irregular rate and rhythm without appreciable murmur, rub or gallop. Extremities: Demonstrate mild pedal edema. LABORATORY DATA: Includes white blood cell count 6.55, hematocrit 29.5, hemoglobin. 9.3. Sodium 140, potassium 5.4, chloride 98, carbon dioxide 27, BUN 74, creatinine 2.9. Glucose 146. IMPRESSION: 1. Acute on chronic congestive heart failure, predominantly right-sided, in the setting of moderate to severe pulmonary hypertension and mild systolic dysfunction. Patient has significant tendency for cardiorenal syndrome and presently appears improved with diuresis but still teetering on reemergence of cardiorenal syndrome. 2. Cardiomyopathy with left ventricular ejection fraction of 40 to 45 percent. 3. Atherosclerotic coronary disease with previous myocardial infarction and coronary angioplasty/stenting of left circumflex coronary artery in October 2018 with drug-eluting stent. 4. Chronic atrial fibrillation. 5. Acute on chronic renal dysfunction, probably related to cardiorenal syndrome. Patient presently appears to be teetering on reemergence of significant cardiorenal syndrome. 6. Type 2 diabetes mellitus. 7. Recent anemia requiring transfusion. RECOMMENDATIONS: 1. Continue Lasix 80 mg orally daily. 2. Diurese with additional IV Lasix this afternoon. 3. Continue Plavix 75 mg p.o. daily. 4. Cautiously initiate low-dose Eliquis and monitor for signs/symptoms of blood loss. cc: Shad Buchanan MD
[2019-10-17] MEDS: ELIQUIS PO SCH (20:21)
[2019-10-17] MEDS: LIPITOR PO SCH (20:21)
[2019-10-18] MEDS: HUMULIN R SUBQ SCH ×4 (06:16→20:44)
[2019-10-18] MEDS: ZOFRAN IV SCH ×3 (06:17→16:00)
[2019-10-18 07:48] LABS: ALBUMIN 3.8 g/dL (3.5-5.0); CALCIUM 9.9 mg/dL (8.8-10.2); CREATININE 2.8 mg/dL (0.7-1.2); PHOSPHORUS 4.4 mg/dL (2.7-4.5)
[2019-10-18] MEDS: CENTRUM SILVER PO SCH (08:30)
[2019-10-18] MEDS: COREG PO SCH ×2 (08:30→20:41)
[2019-10-18] MEDS: NORVASC PO SCH (08:31)
[2019-10-18] MEDS: LASIX PO SCH (08:31)
[2019-10-18] MEDS: ISORDIL PO SCH ×3 (08:31→20:41)
[2019-10-18] MEDS: PLAVIX PO SCH (08:31)
[2019-10-18] MEDS: DIFLUCAN PO SCH (08:31)
[2019-10-18] MEDS: ELIQUIS PO SCH ×2 (08:31→20:41)
[2019-10-18] MEDS: LEVAQUIN PO SCH (08:32)
[2019-10-18] MEDS: ICAR-C PLUS PO SCH ×2 (08:32→20:40)
[2019-10-18] MEDS: APRESOLINE PO SCH ×3 (08:32→20:41)
[2019-10-18] MEDS: PROTONIX PO SCH ×2 (08:32→20:41)
[2019-10-18] MEDS: MIRALAX PO SCH (08:33)
[2019-10-18] MEDS: NEURONTIN PO SCH ×3 (08:33→20:40)
[2019-10-18] MEDS: FLOMAX PO SCH ×2 (08:33→20:40)
[2019-10-18] MEDS: PRAMIPEXOLE DI HCL PO SCH (08:35)
[2019-10-18] MEDS: MYCOSTATIN POWDER TOP SCH ×2 (08:36→20:41)
[2019-10-18] MEDS: LANTUS INSULIN SUBQ SCH (08:45)
--- NOTE | 2019-10-18 08:46 | PROGRESS NOTE ---
DATE: 10/18/2019 SUBJECTIVE: Mr. Victor is feeling good. He is eating good breakfast. He is breathing comfortably. He feels stronger. Feels like the swelling has gone down in his feet. We took the Maurer catheter out yesterday. OBJECTIVE: Vital Signs: Temp 98.5 degrees, pulse 61, respirations 20, blood pressure 128/77. HEENT: Pupils are equal and round. Lungs: Clear in all lung randall. Cardiovascular: Regular rhythm and rate without murmur or S3. Abdomen: Soft. Skin: Warm and dry. Urine output is 4000 mL. Blood sugar 139, 143, 145. ASSESSMENT AND PLAN: 1. Acute on chronic congestive heart failure, predominantly right-sided in the setting of ynwkwptg-au-apeqjz pulmonary hypertension and mild systolic dysfunction. He is improved. Diuresed volume off. Renal function has improved a little bit. 2. Cardiomyopathy, left ventricular ejection fraction about 40% to 45%. 3. Atherosclerotic coronary artery disease, previous myocardial infarction, and coronary angioplasty and stenting of the left circumflex coronary in 10/2018 with drug-eluting stent. 4. Chronic atrial fibrillation. 5. Acute on chronic renal dysfunction, probably related to cardiorenal syndrome. His renal function appears to be stable at about 2.9 to 2.8. 6. He also has diabetes mellitus type 2. Blood sugars appear to be under pretty good control. He would like to go to rehab. We are going to set him up to go to rehab. cc: Chau Hernandez MD
[2019-10-18] MEDS: KLOR-CON PO SCH (09:17)
[2019-10-18] MEDS ORDERED: LASIX IV ONE (16:59)
--- NOTE | 2019-10-18 17:53 | PROGRESS NOTE ---
DATE: 10/18/2019 SUBJECTIVE: Patient continues without shortness of breath or chest discomfort. Appetite is good. OBJECTIVE: Vital Signs: Blood pressure 129/55, heart rate 70, oxygen saturation 100% on room air. Neck: Jugular venous distention is evident suggesting central venous pressure 10 to 12. Chest: Clear to auscultation bilaterally. Cardiac: Reveals an irregular rate and rhythm without appreciable murmur or gallop. Extremities: Demonstrate mild edema. LABORATORY DATA: Includes a sodium 139, potassium 5.0, chloride 97, coronary carbon dioxide 26. BUN 71, creatinine 2.8, glucose 145. IMPRESSION: 1. Acute on chronic congestive heart failure predominantly right-sided, in setting of moderate to severe pulmonary hypertension and mild left ventricular systolic dysfunction. Patient has tendency for cardiorenal syndrome. He has improved with diuresis but is teetering on reemergence of volume overload. 2. Cardiomyopathy. Left ejection fraction of 40 to 45%. 3. Atherosclerotic coronary disease with previous myocardial infarction and coronary angioplasty/stenting of left circumflex coronary in October 2018 with drug-eluting stent. 4. Chronic atrial fibrillation. 5. Acute on chronic renal dysfunction probably cardiorenal syndrome. 6. Type 2 diabetes mellitus. 7. Recent anemia requiring transfusion. The patient currently being tried on low-dose Eliquis along with Plavix. Hematocrit stable. RECOMMENDATIONS: 1. Give additional dose of IV Lasix is evening. 2. Increase oral Lasix 80 mg twice daily. cc: Shad Buchanan MD
[2019-10-18] MEDS: LIPITOR PO SCH (20:41)
[2019-10-19] MEDS: ZOFRAN IV SCH ×2 (06:08→11:33)
[2019-10-19] MEDS: HUMULIN R SUBQ SCH ×2 (06:08→11:38)
[2019-10-19 08:39] LABS: ALBUMIN 3.8 g/dL (3.5-5.0); CALCIUM 9.9 mg/dL (8.8-10.2); CREATININE 2.7 mg/dL (0.7-1.2); PHOSPHORUS 4.6 mg/dL (2.7-4.5); POTASSIUM 5.1 mmol/L (3.5-5.1)
[2019-10-19] MEDS ORDERED: LASIX PO SCH (09:00)
[2019-10-19] MEDS: DIFLUCAN PO SCH (09:10)
[2019-10-19] MEDS: ICAR-C PLUS PO SCH (09:10)
[2019-10-19] MEDS: NEURONTIN PO SCH ×2 (09:10→13:13)
[2019-10-19] MEDS: ELIQUIS PO SCH (09:11)
[2019-10-19] MEDS: APRESOLINE PO SCH ×2 (09:11→14:59)
[2019-10-19] MEDS: ISORDIL PO SCH ×2 (09:11→14:59)
[2019-10-19] MEDS: NORVASC PO SCH (09:11)
[2019-10-19] MEDS: CENTRUM SILVER PO SCH (09:11)
[2019-10-19] MEDS: COREG PO SCH (09:11)
[2019-10-19] MEDS: PLAVIX PO SCH (09:11)
[2019-10-19] MEDS: PRAMIPEXOLE DI HCL PO SCH (09:12)
[2019-10-19] MEDS: LEVAQUIN PO SCH (09:12)
[2019-10-19] MEDS: PROTONIX PO SCH (09:12)
[2019-10-19] MEDS: FLOMAX PO SCH (09:12)
[2019-10-19] MEDS: MIRALAX PO SCH (09:12)
[2019-10-19] MEDS: LANTUS INSULIN SUBQ SCH (09:13)
[2019-10-19] MEDS: MYCOSTATIN POWDER TOP SCH (09:15)
--- NOTE | 2019-10-19 11:00 | NEPHROLOGY PROGRESS NOTE ---
DATE: 10/18/2019 SUBJECTIVE: He is eating and ambulating. He states he is feeling much better. OBJECTIVE: Vital Signs: Blood pressure 129/55, heart rate 49, afebrile. General: No acute distress. Skin: Warm and dry. Conjunctivae are pink. Neck: Neck veins are not appreciated. Heart: Regular. No gallops. Lungs: Equal. No crackles. Abdomen: Soft, nontender. Bowel sounds present. Extremities: 1+ edema. No clubbing or cyanosis. IMPRESSION: Acute kidney injury overlying chronic kidney disease. Baseline creatinine 1.5. Likely combination of acute tubular necrosis in the context of prerenal factors with cardiomyopathy. He appears to be in negative fluid balance and volume status is progressively improving. No changes. cc: Brandon Gambino MD
--- NOTE | 2019-10-19 12:52 | DISCHARGE SUMMARY ---
ADMISSION DATE: 09/27/2019 DISCHARGE DATE: 10/19/2019 LENGTH OF STAY: 22 days. DISPOSITION: [facility]. CONSULTATIONS DURING THIS ADMISSION: 1. Cardiology was consulted. The patient was seen by Dr. Honeycutt. 2. Nephrology was consulted. The patient was seen by Dr. Shepherd. 3. GI was consulted. The patient was seen by Dr. Andersen, followed up by Dr. Lemus. IMAGING STUDIES OF SIGNIFICANCE: 1. A CT scan of the chest was done on 09/27/2019, which showed congestive heart failure, bilateral pleural effusions, right greater than left. 2. A CT scan of the head showed no acute disease. 3. Ultrasound of the lower extremities showed no DVT. 4. Echocardiogram showed an ejection fraction of 35% to 40%. 5. An MRI of the brain showed chronic ischemic changes. No evidence of acute disease. 6. Multiple chest x-rays were done subsequently. INVASIVE PROCEDURES DONE DURING THIS ADMISSION: EGD showed Nanci esophagitis, reflux esophagitis, and a large amount of retained food in the cardiac body. Mild duodenal inflammation was also found. ADMISSION DIAGNOSES: 1. Altered mental status. 2. Congestive heart failure. 3. History of coronary artery disease. 4. Severe biventricular failure. 5. History of Parkinson's disease. 6. Acute on chronic renal disease. DISCHARGE DIAGNOSES: 1. Acute on chronic congestive heart failure, predominantly right-sided, associated with moderate- to-severe pulmonary hypertension and mild left ventricular systolic dysfunction. 2. Dilated cardiomyopathy with ejection fraction of 40% to 45%. 3. Atherosclerotic coronary disease with previous myocardial infarction and coronary angioplasty/stenting of the left circumflex in 10/2018. The patient has a drug-eluting stent. 4. Chronic atrial fibrillation. 5. Acute on chronic renal dysfunction, probably cardiorenal syndrome. 6. Diabetes mellitus. 7. Escherichia coli urinary tract infection. The patient completed treatment during the hospital course. 8. Altered mental status on admission secondary to global encephalopathy on background of dementia. 9. History of Parkinson's disease. DISCHARGE MEDICATIONS: 1. Gabapentin 800 mg 3 times per day. 2. Aspirin 81 mg p.o. daily. 3. Atorvastatin 20 mg p.o. daily. 4. Hydralazine 25 mg 3 times per day. 5. Pantoprazole 40 mg p.o. daily. 6. Pramipexole 1 tablet p.o. daily. 7. Quetiapine 500 mg p.o. at bedtime. 8. Tamsulosin 0.4 p.o. daily. 9. Allopurinol 100 mg p.o. daily. 10. Carvedilol 12.5 p.o. daily. 11. Apixaban 2.5 b.i.d. 12. Flomax 0.4 b.i.d. 13. Insulin glargine 20 units subcutaneously daily. 14. Furosemide 80 mg p.o. daily. 15. MiraLAX 17 grams p.o. daily. 16. Amlodipine 5 mg p.o. daily. 17. Plavix 75 mg p.o. daily. 18. Fluconazole 100 mg p.o. daily for 5 days. 19. Isordil 40 mg p.o. 3 times per day. 20. Pantoprazole 40 mg b.i.d. PRESENTING COMPLAINT: Altered mental status. HISTORY OF PRESENTING COMPLAINT: Mr. Victor is a 69-year-old gentleman with a history of congestive heart failure, chronic atrial fibrillation, Parkinson's disease, who presented to the emergency department because of altered mental status, having urinary incontinence, and being confused. Mr. Victor was initially evaluated. A CT scan of the head did not show any acute findings. A CT scan of the chest did show heart failure. He was admitted to [facility] for further medical care. HOSPITAL COURSE: Mr. Victor was admitted to the [facility], was started on IV antibiotics with a suspicion of UTI causing some of his encephalopathy. CT scan of the head was negative. His mentation gradually got better. However, his hospital course got complicated with atrial fibrillation with RVR, and he was transferred from the medical floor to the [facility]. During the course, he became more compromised with his cardiac output. His extremities got cold, so he was started on inotropes. He was in the Critical Care Unit for most part of his hospital course. His creatinine got slightly worsened. With the inotrope, his cardiac output got improved, and with that, his kidney functions also started getting better. Mr. Victor was seen by Cardiology as well as Nephrology during the hospital course. At some point, Mr. Victor's hemoglobin went down to 7.3. He was given 2 units of PRBCs. GI was consulted for endoscopies before anticoagulation. Mr. Victor underwent EGD. Findings are in the chart. He was started on PPI. Unfortunately, there was no finding that could explain the drop in his hemoglobin and hematocrit. Colonoscopy was also scheduled. Unfortunately, Mr. Victor did not want to drink the entire bowel prep. An NG tube was put down to help with the prep. Unfortunately, he removed it. A decision was made not to pursue any more colonoscopy, and to start Mr. Victor on a very low-dose blood thinner. Eliquis 2.5 was initiated. He continues to be fairly stable. His hemoglobin remained at 9.3 for most part of the later stages of the hospital course. He did not show any obvious sign of any more bleeding. Mr. Victor had a urine culture which was positive for Escherichia coli, and there was some purulence also from his penis, which show Escherichia coli and Klebsiella. All these were sensitive to Levaquin. He was on Levaquin treatment for a total of 10 days, and we think he has been completely treated, and he did not need any more antimicrobial coverage. His fluid overload from the congestive heart failure was managed with diuretic therapy, which has progressively gotten better. He is currently about 28,000 negative balance during the hospital course. He is also about almost 20 pounds of weight loss during the hospital course. This morning, Mr. Victor refers to be doing well. He denies any new complaints. He has been tolerating his diet. It is documented at 100%. He is also making adequate urine. His congestive symptoms have significantly improved. His labs have also been reviewed, fairly stable. His creatinine is down to 2.7. We think he is fairly stable. He has been evaluated by Nephrology, and they plan to follow him up in outpatient setting. Mr. Victor will therefore be discharged to rehab to continue with his physical quaker. TIME SPENT: Time spent for discharge was 40 minutes. cc: Jermaine De Leon MD
[2019-10-19] MEDS: KLOR-CON PO SCH (13:13)
--- NOTE | 2019-10-19 13:19 | PROGRESS NOTE ---
DATE: 10/19/2019 SUBJECTIVE: Patient continues without chest discomfort or shortness of breath on room air. He has good appetite. OBJECTIVE: Vital signs: Blood pressure 147/57. Heart rate 61, oxygen saturation 100% on room air. Neck: Jugular venous pressure is estimated around 6 to 8 cm based on inspection of neck veins. Chest: Clear to auscultation bilaterally. Cardiac: Reveals an irregular rate and rhythm without appreciable murmur or gallop. Extremities: Demonstrate very mild edema. LABORATORY DATA: Includes a sodium 139, potassium 5.1, chloride 97, carbon dioxide 24, BUN 70, creatinine 2.7, glucose 119. Albumin 3.8. IMPRESSION: 1. Acute on chronic congestive heart failure, predominantly right-sided in the setting of moderate to severe pulmonary hypertension and mild left ventricular systolic dysfunction. This has occurred with a tendency for cardiorenal syndrome. He has improved with diuresis. 2. Cardiomyopathy with left ejection fraction of 40% to 45%. 3. Atherosclerotic coronary disease with previous myocardial infarction and coronary angioplasty/stenting of left circumflex coronary in October 2018. The patient continues without angina. 4. Chronic atrial fibrillation. 5. Acute on chronic renal dysfunction probably related to cardiorenal syndrome. 6. Type 2 diabetes mellitus. 7. Recent anemia requiring transfusion. The patient currently being tried on low-dose Eliquis along with Plavix. Hematocrit stable. RECOMMENDATIONS: 1. Continue Lasix 80 mg p.o. b.i.d. 2. Continue Plavix and low-dose Eliquis as tolerated. cc: Shad Buchanan MD
[2019-10-19] MEDS ORDERED: FLEET ENEMA PR ONE (14:26)
[2019-10-19 14:58] VITALS: BP 141/64
== END 2019-10-19 16:11 | DRG 291 ==
LOC: ED 01:56 → 3N 01:56 → OBSVTOIN 09:06 → SUATTDRO 09:06 → 2N 10-03 14:35 → 3N 10-15 18:33
PROVIDERS: ATTEND Internal Medicine

== ENCOUNTER 2020-01-22 04:21 | Inpatient (IN) ==
[2020-01-22] MEDS ORDERED: NS 1,000 ML IV ONE (04:33)
--- NOTE | 2020-01-22 04:42 | PROVIDER DOCUMENTATION ---
HPI-Neurological Disorder - General Chief Complaint: Altered Mental Status Stated Complaint: ams Time Seen by Provider: 01/22/20 04:25 Source: EMS, detention records Allergies/Adverse Reactions: Patient Allergies Allergy/AdvReac Type Severity Reaction Status Date / Time cephalexin [From Keflex] Allergy ITCHING Verified 09/27/19 03:52 Home Medications: Home Medication List Medication Instructions Recorded Confirmed Last Taken Type Allopurinol 100 mg PO DAILY 09/27/19 01/22/20 09/26/19 History Atorvastatin Calcium 20 mg PO HS 09/27/19 01/22/20 09/26/19 History Carvedilol [Coreg] 12.5 mg PO DAILY 09/27/19 01/22/20 09/26/19 History Hydralazine [Apresoline] 25 mg PO TID 09/27/19 01/22/20 09/26/19 History Pramipexole Di-HCl [Pramipexole 1 tab PO DAILY 09/27/19 01/22/20 09/26/19 History Dihydrochloride] Quetiapine [Seroquel] 25 mg PO QHS 09/27/19 01/22/20 09/26/19 History Amlodipine [Norvasc] 5 mg PO DAILY tab 10/19/19 01/22/20 Unknown Rx Apixaban [Eliquis] 2.5 mg PO BID tab 10/19/19 01/22/20 Unknown Rx Clopidogrel [Plavix] 75 mg PO DAILY tab 10/19/19 01/22/20 Unknown Rx Iron Carbonyl/Vit C/Vit B12/FA 1 ea PO BID tab 10/19/19 01/22/20 Unknown Rx [Icar-C Plus] Multivitamins/Minerals [Centrum 1 ea PO DAILY tab 10/19/19 01/22/20 Unknown Rx Silver] Nystatin Powder [Mycostatin Powder] 1 gm TOP BID bottle 10/19/19 01/22/20 Unknown Rx Pantoprazole [Protonix] 40 mg PO BID tab 10/19/19 01/22/20 Unknown Rx Polyethylene Glycol 3350 [Miralax] 17 gm PO DAILY powder, packet 10/19/19 01/22/20 Unknown Rx Tamsulosin [Flomax] 0.4 mg PO BID cap 10/19/19 01/22/20 Unknown Rx Ferrous Sulfate 1 tab PO DAILY 01/22/20 01/22/20 Unknown History Gabapentin 2 cap PO TID 01/22/20 01/22/20 Unknown History Insulin Detemir [Levemir Flextouch] 20 unit SQ DAILY 01/22/20 01/22/20 Unknown History Insulin Lispro [Humalog] 1 dose SQ DIRECTED 01/22/20 01/22/20 Unknown History Isosorbide Dinitrate [Isordil] 40 mg PO TID 01/22/20 01/22/20 Unknown History Torsemide 2 tab PO BID 01/22/20 01/22/20 Unknown History - History of Present Illness-Neuro Nature of Presenting Problem: 69 yo AA male brought from Alzheimer's Unit at [facility] for AMS gradually wors ening over the last 3 days. Per EMS, he has had some decreased responsiveness and garbled speech from baseline. This evening, RN found patient in bed with his roommate, taking his clothes off and trying to grope his roommate. Per EMS, this is not his baseline mental status... Has had similar symptoms with UTIs in the past. Onset/Duration: reports: gradual, 3 days ago Timing: reports: still present, constant, getting worse Context: reports: other Character of Altered Mental Status: reports: disoriented, confused, agitated, decreased responsiveness Any recent trauma/injury?: reports: none Cognitive Baseline: alert but confused Gait Baseline: walks only with assistance Associated Symptoms: reports: decreased ability to walk or stand, slurred speech , trouble walking, weakness Similar Symptoms Previously?: No Recently seen or treated by another doctor?: No Review of Systems - Adult - REVIEW OF SYSTEMS - ADULT Constitutional: reports: no symptoms reported Eyes: reports: no symptoms reported Ears, Nose, Mouth & Throat: reports: no symptoms reported Cardiovascular: reports: no symptoms reported Respiratory: reports: no symptoms reported Gastrointestinal: reports: no symptoms reported Genitourinary: reports: no symptoms reported Musculoskeletal: reports: no symptoms reported Integumentary: reports: no symptoms reported Neurological: reports: no symptoms reported Psychiatric: reports: no symptoms reported Endocrine: reports: no symptoms reported Hematologic/Lymphatic: reports: no symptoms reported Allergic/Immunologic: reports: no symptoms reported All Other Systems: Reviewed and Negative Past History - Adult - PAST MEDICAL HISTORY-ADULT Review of Records: reports: Old Records Reviewed, Nursing Assessment Review, Medications Reviewed, Social history reviewed & non-contributory. Major Childhood Illnesses: reports: denies history Cardiovascular: reports: A-Fib, CHF, HTN, hyperlipidemia Respiratory: reports: denies history Gastrointestinal: reports: GERD Obstetrical/Gynecological: reports: denies history Genitourinary: reports: denies history Musculoskeletal: reports: denies history Neurological: reports: dementia, Parkinson's Endocrine/Immune: reports: denies history Other Conditions: reports: denies history - PRIOR SURGERIES/PROCEDURES Surgical/Procedure History: reports: orthopedic (extremity) - IMMUNIZATION STATUS Childhood Immunizations: See Nurse Assessment Flu Vaccine: See Nurse Assessment - FAMILY HISTORY Family History: reviewed, not pertinent - SOCIAL HISTORY Smoking: quit greater than 1 year, cigarettes Substance Use: none/never Alcohol Use Frequency: rarely Living Situation: care facility ([facility]) Physical Exam- Neurological - Physical Exam-Neuro Initial Vital Signs Reviewed: Yes (VSSAF) General Appearance: appears well, alert, no apparent distress Eye Exam: bilateral eye: normal inspection, PERRL, EOMI HENMT: normocephalic/atraumatic, moist mucous membranes, normal ENT inspection Head Injury: no evidence of injury Neck: full range of motion, supple, normal inspection, meningismus Respiratory: chest non-tender, lungs clear, normal breath sounds, no pleuratic chest pain, no respiratory distress, no accessory muscle use Cardiovascular: normal peripheral pulses, regular rate, rhythm, no edema, no gallop, no JVD, systolic murmur Abdominal Exam: non tender, soft, no organomegaly, no pulsatile mass Lymphatic: no adenopathy Extremity: normal range of motion, non-tender, normal gait, normal inspection, no calf tenderness, pedal edema (3-4 plus) 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 Exam: normal hearing, PERRL Coordination/Gait: abnormal gait Motor/Sensory: no motor deficit, no sensory deficit, no pronator drift Neurologic: 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 II-XII nml as tested, grossly normal, no motor/sensory deficits Integumentary: normal color, normal turgor, warm/dry Psych/Mental Status: disoriented x 3 - Glascow Coma Scale Best Eye Response: (4) open spontaneously Best Verbal Response: (4) confused conversation Best Motor Response: (5) localizes to pain Progress - PLAN OF CARE/RESULTS Progress/Plan/Lab Results: Vital Signs - 8 hr 01/22/20 04:25 01/22/20 05:30 01/22/20 06:59 Temperature 96 F L 90.4 F L Pulse Rate 55 L 51 L Respiratory Rate 18 20 Blood Pressure 135/74 124/66 O2 Sat by Pulse Oximetry 97 98 01/22/20 08:21 Temperature 92.7 F L Pulse Rate Respiratory Rate Blood Pressure O2 Sat by Pulse Oximetry 01/22/20 05:12 Influenza Screen - Final Nasopharyngeal Laboratory Results - last 24 hr 01/22/20 01/22/20 01/22/20 04:57 05:00 05:12 WBC RBC Hgb Hct MCV MCH MCHC RDW Std Deviation Plt Count MPV Immature Gran % (Auto) Neut % (Auto) Lymph % (Auto) Harmon % (Auto) Eos % (Auto) Baso % (Auto) Immature Gran # (Auto) Neut # (Auto) Lymph # (Auto) Harmon # (Auto) Eos # (Auto) Baso # (Auto) Segmented Neutrophils Lymphocytes Monocytes Eosinophils Large Platelets PT INR PTT (Actin FS) Specimen Type ARTERIAL Sample Site R RADIAL pH 7.40 pCO2 48 H pO2 115 H HCO3 28.2 H Base Excess 4.2 H Oxyhemoglobin 96.0 ABG O2 Sat (Calculated) 13.2 L ABG O2 Saturation 99.0 ABG Carboxyhemoglobin 1.50 ABG Methemoglobin 1.5 Chau Test YES A-a O2 Difference -25.0 Total Hemoglobin 9.6 L Lactate 0.70 Blood Gas Modality ROOM AIR FiO2 % 21.0 Sodium Potassium Chloride Carbon Dioxide Anion Gap BUN Creatinine Estimated GFR/1.73 m2 BUN/Creatinine Ratio Glucose POC Glucose Calculated Osmolality Calcium Total Bilirubin AST ALT Alkaline Phosphatase Creatine Kinase Creatine Kinase Index CK-MB (CK-2) Troponin T High Sens [id number]-C-Bfnmuptizci Pept Total Protein Albumin Globulin Albumin/Globulin Ratio Plasma Lactate 0.6 Vitamin B12 > 2000 H TSH 5.83 H Urine Source Urine Color Urine Turbidity Urine pH Ur Specific [place] Urine Protein Ur Glucose (Stick) Ur Ketones (Stick) Urine Blood Urine Nitrite Urine Bilirubin Urobilinogen Dipstick Urine Leukocytes Urine WBC (Auto) Urine RBC (Auto) U Epithel Cells (Auto) Urine Bacteria (Auto) Urine Opiates Screen Ur Oxycodone Screen Ur Methadone, Qual Ur Barbiturates Screen Ur Phencyclidine Scrn Ur Amphetamines Screen U Benzodiazepines Scrn Urine Cocaine Screen U Cannabinoids Screen Plasma/Serum Ethyl Alc RPR 01/22/20 01/22/20 01/22/20 05:12 05:12 05:12 WBC RBC Hgb Hct MCV MCH MCHC RDW Std Deviation Plt Count MPV Immature Gran % (Auto) Neut % (Auto) Lymph % (Auto) Harmon % (Auto) Eos % (Auto) Baso % (Auto) Immature Gran # (Auto) Neut # (Auto) Lymph # (Auto) Harmon # (Auto) Eos # (Auto) Baso # (Auto) Segmented Neutrophils Lymphocytes Monocytes Eosinophils Large Platelets PT INR PTT (Actin FS) Specimen Type Sample Site pH pCO2 pO2 HCO3 Base Excess Oxyhemoglobin ABG O2 Sat (Calculated) ABG O2 Saturation ABG Carboxyhemoglobin ABG Methemoglobin Chau Test A-a O2 Difference Total Hemoglobin Lactate Blood Gas Modality FiO2 % Sodium 147 H Potassium 4.3 Chloride 105 Carbon Dioxide 29 Anion Gap 13 BUN 72 H Creatinine 2.4 H Estimated GFR/1.73 m2 33 BUN/Creatinine Ratio 30 Glucose 47 L POC Glucose Calculated Osmolality 311 Calcium 9.4 Total Bilirubin 0.37 AST 43 H ALT 25 Alkaline Phosphatase 120 Creatine Kinase 256 H Creatine Kinase Index 4.6 H CK-MB (CK-2) 11.89 H Troponin T High Sens 85 H [id number]-Tdblpntnifu Pept Total Protein 7.7 Albumin 3.9 Globulin 3.8 Albumin/Globulin Ratio 1.0 Plasma Lactate Vitamin B12 TSH Urine Source Urine Color Urine Turbidity Urine pH Ur Specific [place] Urine Protein Ur Glucose (Stick) Ur Ketones (Stick) Urine Blood Urine Nitrite Urine Bilirubin Urobilinogen Dipstick Urine Leukocytes Urine WBC (Auto) Urine RBC (Auto) U Epithel Cells (Auto) Urine Bacteria (Auto) Urine Opiates Screen Ur Oxycodone Screen Ur Methadone, Qual Ur Barbiturates Screen Ur Phencyclidine Scrn Ur Amphetamines Screen U Benzodiazepines Scrn Urine Cocaine Screen U Cannabinoids Screen Plasma/Serum Ethyl Alc RPR NON-REACTIVE 01/22/20 01/22/20 01/22/20 05:12 05:12 05:12 WBC 4.09 L RBC 2.74 L Hgb 8.9 L Hct 27.8 L MCV 101.5 H MCH 32.5 H MCHC 32.0 L RDW Std Deviation 16.4 H Plt Count 113 L MPV Not Reportable Immature Gran % (Auto) 0.0 Neut % (Auto) 71.2 Lymph % (Auto) 17.1 L Harmon % (Auto) 8.6 Eos % (Auto) 2.9 Baso % (Auto) 0.2 Immature Gran # (Auto) 0.00 Neut # (Auto) 2.91 Lymph # (Auto) 0.70 L Harmon # (Auto) 0.35 Eos # (Auto) 0.12 Baso # (Auto) 0.01 Segmented Neutrophils 68 Lymphocytes 26 Monocytes 4 Eosinophils 2 Large Platelets 1+ PT 17.2 H INR 1.38 PTT (Actin FS) 47.9 H Specimen Type Sample Site pH pCO2 pO2 HCO3 Base Excess Oxyhemoglobin ABG O2 Sat (Calculated) ABG O2 Saturation ABG Carboxyhemoglobin ABG Methemoglobin Chau Test A-a O2 Difference Total Hemoglobin Lactate Blood Gas Modality FiO2 % Sodium Potassium Chloride Carbon Dioxide Anion Gap BUN Creatinine Estimated GFR/1.73 m2 BUN/Creatinine Ratio Glucose POC Glucose Calculated Osmolality Calcium Total Bilirubin AST ALT Alkaline Phosphatase Creatine Kinase Creatine Kinase Index CK-MB (CK-2) Troponin T High Sens [id number]-F-Khfoexihwtl Pept Total Protein Albumin Globulin Albumin/Globulin Ratio Plasma Lactate Vitamin B12 TSH Urine Source Urine Color Urine Turbidity Urine pH Ur Specific [place] Urine Protein Ur Glucose (Stick) Ur Ketones (Stick) Urine Blood Urine Nitrite Urine Bilirubin Urobilinogen Dipstick Urine Leukocytes Urine WBC (Auto) Urine RBC (Auto) U Epithel Cells (Auto) Urine Bacteria (Auto) Urine Opiates Screen Ur Oxycodone Screen Ur Methadone, Qual Ur Barbiturates Screen Ur Phencyclidine Scrn Ur Amphetamines Screen U Benzodiazepines Scrn Urine Cocaine Screen U Cannabinoids Screen Plasma/Serum Ethyl Alc RPR 01/22/20 01/22/20 01/22/20 05:12 05:24 05:46 WBC RBC Hgb Hct MCV MCH MCHC RDW Std Deviation Plt Count MPV Immature Gran % (Auto) Neut % (Auto) Lymph % (Auto) Harmon % (Auto) Eos % (Auto) Baso % (Auto) Immature Gran # (Auto) Neut # (Auto) Lymph # (Auto) Harmon # (Auto) Eos # (Auto) Baso # (Auto) Segmented Neutrophils Lymphocytes Monocytes Eosinophils Large Platelets PT INR PTT (Actin FS) Specimen Type Sample Site pH pCO2 pO2 HCO3 Base Excess Oxyhemoglobin ABG O2 Sat (Calculated) ABG O2 Saturation ABG Carboxyhemoglobin ABG Methemoglobin Chau Test A-a O2 Difference Total Hemoglobin Lactate Blood Gas Modality FiO2 % Sodium Potassium Chloride Carbon Dioxide Anion Gap BUN Creatinine Estimated GFR/1.73 m2 BUN/Creatinine Ratio Glucose POC Glucose 50 L D Calculated Osmolality Calcium Total Bilirubin AST ALT Alkaline Phosphatase Creatine Kinase Creatine Kinase Index CK-MB (CK-2) Troponin T High Sens Zle-D-Xrznmjkoter Pept 1544 H Total Protein Albumin Globulin Albumin/Globulin Ratio Plasma Lactate Vitamin B12 TSH Urine Source CLEAN CATCH Urine Color YELLOW Urine Turbidity CLEAR Urine pH 6.0 Ur Specific [place] 1.014 Urine Protein NEGATIVE Ur Glucose (Stick) NEGATIVE Ur Ketones (Stick) NEGATIVE Urine Blood NEGATIVE Urine Nitrite NEGATIVE Urine Bilirubin NEGATIVE Urobilinogen Dipstick NORMAL Urine Leukocytes NEGATIVE Urine WBC (Auto) <10 Urine RBC (Auto) <10 U Epithel Cells (Auto) <10 Urine Bacteria (Auto) NEGATIVE Urine Opiates Screen Ur Oxycodone Screen Ur Methadone, Qual Ur Barbiturates Screen Ur Phencyclidine Scrn Ur Amphetamines Screen U Benzodiazepines Scrn Urine Cocaine Screen U Cannabinoids Screen Plasma/Serum Ethyl Alc RPR 01/22/20 01/22/20 01/22/20 06:03 06:32 06:59 WBC RBC Hgb Hct MCV MCH MCHC RDW Std Deviation Plt Count MPV Immature Gran % (Auto) Neut % (Auto) Lymph % (Auto) Harmon % (Auto) Eos % (Auto) Baso % (Auto) Immature Gran # (Auto) Neut # (Auto) Lymph # (Auto) Harmon # (Auto) Eos # (Auto) Baso # (Auto) Segmented Neutrophils Lymphocytes Monocytes Eosinophils Large Platelets PT INR PTT (Actin FS) Specimen Type Sample Site pH pCO2 pO2 HCO3 Base Excess Oxyhemoglobin ABG O2 Sat (Calculated) ABG O2 Saturation ABG Carboxyhemoglobin ABG Methemoglobin Chau Test A-a O2 Difference Total Hemoglobin Lactate Blood Gas Modality FiO2 % Sodium Potassium Chloride Carbon Dioxide Anion Gap BUN Creatinine Estimated GFR/1.73 m2 BUN/Creatinine Ratio Glucose POC Glucose 108 H D 122 H Calculated Osmolality Calcium Total Bilirubin AST ALT Alkaline Phosphatase Creatine Kinase Creatine Kinase Index CK-MB (CK-2) Troponin T High Sens [id number]-Wsudpensfte Pept Total Protein Albumin Globulin Albumin/Globulin Ratio Plasma Lactate Vitamin B12 TSH Urine Source Urine Color Urine Turbidity Urine pH Ur Specific [place] Urine Protein Ur Glucose (Stick) Ur Ketones (Stick) Urine Blood Urine Nitrite Urine Bilirubin Urobilinogen Dipstick Urine Leukocytes Urine WBC (Auto) Urine RBC (Auto) U Epithel Cells (Auto) Urine Bacteria (Auto) Urine Opiates Screen NONE DETECTED Ur Oxycodone Screen NONE DETECTED Ur Methadone, Qual NONE DETECTED Ur Barbiturates Screen NONE DETECTED Ur Phencyclidine Scrn NONE DETECTED Ur Amphetamines Screen NONE DETECTED U Benzodiazepines Scrn NONE DETECTED Urine Cocaine Screen NONE DETECTED U Cannabinoids Screen NONE DETECTED Plasma/Serum Ethyl Alc RPR 01/22/20 07:56 WBC RBC Hgb Hct MCV MCH MCHC RDW Std Deviation Plt Count MPV Immature Gran % (Auto) Neut % (Auto) Lymph % (Auto) Harmon % (Auto) Eos % (Auto) Baso % (Auto) Immature Gran # (Auto) Neut # (Auto) Lymph # (Auto) Harmon # (Auto) Eos # (Auto) Baso # (Auto) Segmented Neutrophils Lymphocytes Monocytes Eosinophils Large Platelets PT INR PTT (Actin FS) Specimen Type Sample Site pH pCO2 pO2 HCO3 Base Excess Oxyhemoglobin ABG O2 Sat (Calculated) ABG O2 Saturation ABG Carboxyhemoglobin ABG Methemoglobin Chau Test A-a O2 Difference Total Hemoglobin Lactate Blood Gas Modality FiO2 % Sodium Potassium Chloride Carbon Dioxide Anion Gap BUN Creatinine Estimated GFR/1.73 m2 BUN/Creatinine Ratio Glucose POC Glucose Calculated Osmolality Calcium Total Bilirubin AST ALT Alkaline Phosphatase Creatine Kinase Creatine Kinase Index CK-MB (CK-2) Troponin T High Sens Fxo-P-Ohswenxcwxi Pept Total Protein Albumin Globulin Albumin/Globulin Ratio Plasma Lactate 0.6 Vitamin B12 TSH Urine Source Urine Color Urine Turbidity Urine pH Ur Specific [place] Urine Protein Ur Glucose (Stick) Ur Ketones (Stick) Urine Blood Urine Nitrite Urine Bilirubin Urobilinogen Dipstick Urine Leukocytes Urine WBC (Auto) Urine RBC (Auto) U Epithel Cells (Auto) Urine Bacteria (Auto) Urine Opiates Screen Ur Oxycodone Screen Ur Methadone, Qual Ur Barbiturates Screen Ur Phencyclidine Scrn Ur Amphetamines Screen U Benzodiazepines Scrn Urine Cocaine Screen U Cannabinoids Screen Plasma/Serum Ethyl Alc RPR Orders Category Date Time Status Admit - [facility] Routine [id number] 01/22/20 09:04 Active Cardiac Monitoring DIRECTED Care 01/22/20 04:31 Active FSBS/Accucheck Result AC + HS Care 01/22/20 09:04 Active Finger Stick Blood Sugar (ED) DIRECTED Care 01/22/20 04:31 Active Finger Stick Blood Sugar (ED) DIRECTED Care 01/22/20 06:01 Active Notify Provider of NEWS Score NOW Care 01/22/20 07:27 Active Oxygen Therapy- ED Nursing DIRECTED Care 01/22/20 04:31 Active Saline Loc NOW Care 01/22/20 04:31 Active Diabetic Diet Diet 01/22/20 05:24 Active CHEST-PORTABLE [RAD] Stat Exams 01/22/20 04:[address] HEAD W/O CONTRAST [CT] Stat Exams 01/22/20 04:31 Taken ABG [RESP] Routine Lab 01/22/20 04:57 Completed ALCOHOL BLOOD Stat Lab 01/22/20 05:12 Completed BLOOD CULTURE [BLDCUL] Stat Lab 01/22/20 05:13 Results CBC WITH ELECTRONIC DIFF [HEME] Stat Lab 01/22/20 05:12 Completed CK PROFILE [SP CHEM] Stat Lab 01/22/20 05:12 Completed CK PROFILE [SP CHEM] Stat Lab 01/22/20 07:56 Received COMPREHENSIVE METABOLIC PANEL [CHEM] Stat Lab 01/22/20 05:12 Completed INFLUENZA SCREEN A/B Stat Lab 01/22/20 05:12 Completed INFLUENZA SCREEN A/B Stat Lab 01/22/20 08:55 Uncollected LACTATE, PLASMA [CHEM] Stat Lab 01/22/20 05:00 Completed LACTATE, PLASMA [CHEM] Stat Lab 01/22/20 07:56 Completed LACTATE, PLASMA [CHEM] Stat Lab 01/22/20 11:00 Uncollected PRO B-NATRIURETIC PEPTIDE Stat Lab 01/22/20 05:12 Completed PROTIME WITH INR [COAG] Stat Lab 01/22/20 05:12 Completed PTT [COAG] Stat Lab 01/22/20 05:12 Completed RPR [SERO] Stat Lab 01/22/20 05:12 Completed TROPONIN T HIGH SENSITIVITY Stat Lab 01/22/20 05:12 Completed TROPONIN T HIGH SENSITIVITY Stat Lab 01/22/20 07:56 Received TSH Stat Lab 01/22/20 05:12 Completed UA NIMS W/REFLEX CULT [URINALYSIS] Stat Lab 01/22/20 05:46 Completed URINE DRUG SCREEN Stat Lab 01/22/20 06:03 Completed VITAMIN B12 Stat Lab 01/22/20 05:12 Completed 0.9% Sodium Chloride Inj [Ns] 1,000 ml Med 01/22/20 04:33 Discontinued IV 999 mls/hr ATORVAstatin [Lipitor] Med 01/22/20 21:00 Ordered 20 mg PO HS Acetaminophen [Tylenol] Med 01/22/20 09:04 Ordered 650 mg PO Q6H PRN PRN Allopurinol [Zyloprim] Med 01/22/20 09:00 Ordered 100 mg PO DAILY Amlodipine [Norvasc] Med 01/22/20 09:00 Ordered 5 mg PO DAILY Apixaban [Eliquis] Med 01/22/20 09:00 Active 2.5 mg PO BID Carvedilol [Coreg] Med 01/22/20 09:00 Discontinued 12.5 mg PO DAILY Carvedilol [Coreg] Med 01/22/20 21:00 Active 6.25 mg PO BID Clopidogrel [Plavix] Med 01/22/20 09:00 Ordered 75 mg PO DAILY Dextrose 50% Syringe [D50w Syringe] Med 01/22/20 08:55 Active 50 ml IV DIRECTED PRN PRN Dextrose 50% Syringe [D50w Syringe] Med 01/22/20 05:24 Discontinued 50 ml IV NOW ONE Ferrous Sulfate Med 01/22/20 09:00 Ordered DOSE mg PO DAILY Hydralazine [Apresoline] Med 01/22/20 09:00 Active 25 mg PO TID Iron Carbonyl/Vit C/Vit B12/FA [Icar-C Plus] Med 01/22/20 09:00 Ordered DOSE each PO BID Isosorbide Dinitrate [Isordil] Med 01/22/20 09:00 Ordered 40 mg PO TID Multivitamins/Minerals [Centrum Silver] Med 01/22/20 09:00 Active 1 each PO DAILY Nystatin Powder [Mycostatin Powder] Med 01/22/20 09:00 Ordered 1 gm TOP BID Ondansetron [Zofran] Med 01/22/20 09:04 Ordered 4 mg IV Q4H PRN PRN Pantoprazole [Protonix] Med 01/22/20 09:00 Ordered 40 mg PO BID Polyethylene Glycol 3350 [Miralax] Med 01/22/20 09:00 Ordered 17 gm PO DAILY Pramipexole Di-HCl [Pramipexole Dihydrochloride] Med 01/22/20 09:00 Ordered 1 tab PO DAILY Quetiapine [Seroquel] Med 01/22/20 21:00 Ordered 25 mg PO QHS Tamsulosin [Flomax] Med 01/22/20 09:00 Ordered 0.4 mg PO BID Torsemide [Demadex] Med 01/22/20 09:00 Active 40 mg PO BID Altered Mental Status Stat Oth 01/22/20 04:30 Ordered O2 Per Protocol Stat Oth 01/22/20 07:27 Active [place] [OM.EQ] Stat Oth 01/22/20 05:24 Ordered EKG [EKG] Stat Ther 01/22/20 04:31 Draft Transfer/Admit Order [TRANSFER] Routine Transfer 01/22/20 08:59 Ordered Result Diagrams: 01/22/20 05:12 01/22/20 05:12 - REASSESSMENT Reassessment #1 Time Reassessed: 06:22 Status: improving (Given IVF bolus, warm blanket, D50, diabetic tray ordered. Still Altered.) - EKG 1 Time of EKG reading by physician:: 05:50 EKG Read and Signed by:: Mukesh Mccarthy EKG Interpretation (*Must complete 3 of following elements*): Abnormal Rate: 50 Rhythm: nsr, bradycardia [place]: left QRS: poor R wave progression HI Interval: prolonged (first degree AV block) ST Wave: non-specific ST changes Comments: heavy artifact present - XRAY 1 XRAY Study: Chest Impression: Normal (Read by me at 0615: Normal cardiac silhouette, no infiltrates, no PTX.) - CONSULTS/PCP/HOSPITALIST Notification #1 *Consult/PCP/Hospitalist*: Jennifer UGALDE Time Discussed: 08:01 (Draw second set of cardiac enzymes) - CHANGE OF SHIFT REPORT (ED Provider) 1 Report Given and Care Transferred to:: Abelino Time of Transfer: 07:00 Items Pending: Labs, CT/MRI Results, Other (glucose control) Departure - Departure Date of Disposition Decision: 01/22/20 Time of Disposition Decision: 09:08 DIAGNOSIS: Hypoglycemic episode in patient with diabetes mellitus, Pancytopenia, Elevated troponin I measurement Dementia with behavioral disturbance Qualifiers: Dementia type: unspecified type Qualified Code(s): F03.91 - Unspecified dementia with behavioral disturbance Hypothermia Qualifiers: Encounter type: initial encounter Qualified Code(s): T68.XXXA - Hypothermia, initial encounter Disposition: ADMITTED INPATIENT 09 Certified Medical Emergency: Emergent Condition: Fair Referrals and Follow-Ups: None,PCP [Primary Care Provider] - - Critical Care Note This patient required my direct & personal management of CC.: No Attestation - Physician/ HANG Attestation Patient care was provided by Advanced Practice Provider:: No The physician spent face to face time with patient:: Yes Advanced Practice Provider documentation review:: Supervising physician onsite and consulted in the evaluation and care of this patient. The physician did have a face to face encounter with the patient.
[2020-01-22 05:07] LABS: ALLEN TEST YES; BE 4.2 mmoll (-3.0-3.0); BLOOD TYPE ARTERIAL; HCO3-(ACT) 28.2 mmoll (20.0-26.0); METHB 1.5 % (0.0-1.5); O2(CT) 13.2 mL/dL (15.0-23.0); PCO2(98.6) 48 mmHg (35-45); PO2(98.6) 115 mmHg (60-100); SAMPLE BLOOD; THB 9.6 g/dL (11.5-17.4)
[2020-01-22 05:08] LABS: MODALITY ROOM AIR
[2020-01-22] MEDS ORDERED: D50W SYRINGE IV ONE (05:24)
[2020-01-22 05:53] LABS: INR 1.38; PROTIME 17.2 Seconds (11.0-16.0)
[2020-01-22 05:54] LABS: PTT 47.9 Seconds (22.3-41.8)
[2020-01-22 06:05] LABS: URINE SOURCE CLEAN CATCH
[2020-01-22 06:12] LABS: BASO# 0.01 X1000 (0.0-0.2); BASO% 0.2 % (0.0-0.8); EOS# 0.12 X1000 (0.0-0.7); EOS% 2.9 % (0.0-10.0); HEMATOCRIT 27.8 % (42.0-52.0); HEMOGLOBIN 8.9 g/dL (14.0-18.0); LYMPH% 17.1 % (20.5-51.1); MCH 32.5 PG (27-31); MCV 101.5 FL (81-99); MONO# 0.35 X1000 (0.11-0.59); MONO% 8.6 % (1.7-9.3); NEUT# 2.91 X1000 (1.4-6.5); NEUT% 71.2 % (42.2-75.2); PLT 113 X1000 (130-400); RBC 2.74 XMIL (4.7-6.1); RDW 16.4 % (11.5-14.5); WBC 4.09 X1000 (4.8-10.8)
--- NOTE | 2020-01-22 06:19 | EKG Report ---
Test Performed on : 01/22/2020 05:36:32 AM Test Reason : AMS Blood Pressure : / mmHG Vent. Rate : 050 BPM Atrial Rate : 050 BPM P-R Int : 308 ms QRS Dur : 096 ms QT Int : 514 ms P-R-T Axes : 000 -41 011 degrees QTc Int : 468 ms Sinus bradycardia. with 1st degree AV block. with premature supraventricular complexes. Left axis deviation Septal infarct , age undetermined Abnormal ECG When compared with ECG of 22-JAN-2020 05:35, (Unconfirmed) Sinus rhythm. has replaced Junctional rhythm. T wave inversion now evident in Anterior leads QT has shortened Unconfirmed Result
[2020-01-22 06:27] LABS: BILIRUBIN URINE NEGATIVE (NEGATIVE); BLOOD URINE NEGATIVE (NEGATIVE); COLOR YELLOW; GLUCOSE URINE NEGATIVE (NEGATIVE); KETONE URINE NEGATIVE (NEGATIVE); LEUKOCYTES URINE NEGATIVE (NEGATIVE); NITRITE URINE NEGATIVE (NEGATIVE); PROTEIN URINE NEGATIVE (NEGATIVE); SP GRAVITY URINE 1.014; TURBIDITY URINE CLEAR (CLEAR); UROBILINOGEN URINE NORMAL (NORMAL)
[2020-01-22 06:27] LABS: UR AMPHETAMINES QUAL NONE DETECTED (NONE DETECT); UR BARBITUATES QUAL NONE DETECTED (NONE DETECT); UR BENZODIAZEPIN QUAL NONE DETECTED (NONE DETECT); UR CANNABINOIDS QUAL NONE DETECTED (NONE DETECT); UR COCAINE QUAL NONE DETECTED (NONE DETECT); UR METHADONE QUAL NONE DETECTED (NONE DETECT); UR OPIATES QUAL NONE DETECTED (NONE DETECT); UR OXYCODONE QUAL NONE DETECTED (NONE DETECT); UR PCP QUAL NONE DETECTED (NONE DETECT)
[2020-01-22 06:29] LABS: UR EPITHELIAL CELLS <10 /HPF (<10); URINE BACTERIA NEGATIVE /HPF; URINE RBC <10 /HPF (<10); URINE WBC <10 /HPF (<10)
[2020-01-22 06:33] LABS: ALBUMIN 3.9 g/dL (3.5-5.0); CALCIUM 9.4 mg/dL (8.8-10.2); CREATININE 2.4 mg/dL (0.7-1.2); POTASSIUM 4.3 mmol/L (3.5-5.1); TOTAL BILIRUBIN 0.37 mg/dL (0.20-1.00); TOTAL PROTEIN 7.7 g/dL (6.3-8.3)
[2020-01-22 06:59] LABS: CK INDEX 4.6 (0.0-2.5); CK-MB 11.89 ng/mL (0.0-5.0)
[2020-01-22 07:11] LABS: TSH 5.83 uIUmL (0.27-4.20)
[2020-01-22 07:26] LABS: EOS 2 % (1-10); LYMPHS 26 % (21-51); MONO 4 % (1-9); SEGS 68 % (42-75)
[2020-01-22 07:28] LABS: LARGE PLATELETS 1+
--- NOTE | 2020-01-22 08:16 | Diag Imaging Result Doc PS360 ---
EXAM: CHEST-PORTABLE INDICATION: ams TECHNIQUE: One view COMPARISON: 10/07/2019 FINDINGS: There is stable mild elevation of the right hemidiaphragm. The lungs are grossly clear. There is no discrete pleural fluid collection or pneumothorax. There is stable cardiomegaly. Mild pulmonary venous congestion is very similar to previous studies. IMPRESSION: Cardiomegaly and very mild pulmonary venous congestion. Electronically signed by Zachary Marshall 01/22/2020 8:14 AM
[2020-01-22] MEDS ORDERED: D50W SYRINGE IV PRN (08:55)
[2020-01-22] MEDS ORDERED: COREG PO SCH (09:00)
[2020-01-22] MEDS ORDERED: ZOFRAN IV PRN (09:04)
[2020-01-22] MEDS ORDERED: TYLENOL PO PRN (09:04)
--- NOTE | 2020-01-22 09:35 | Diag Imaging Result Doc PS360 ---
EXAM: CT HEAD W/O CONTRAST INDICATION: ams TECHNIQUE: This exam was performed using automated exposure control, adjustment of mA or kV according to patient size, and/or use of iterative reconstruction technique. COMPARISON: 09/27/2019 FINDINGS: There is evidence of very mild periventricular white matter microangiopathy, stable. There is no definite acute infarct given the limited sensitivity of CT versus MRI. There is no discrete intracranial mass, mass effect, or intracranial hemorrhage. There are several bilateral maxillary sinus mucus retention cysts that are stable. There is minimal stable mucosal thickening associated with the left frontal sinus and the superior ethmoid sinuses on the right. Surrounding soft tissues and bony structures are essentially unremarkable, otherwise. IMPRESSION: Stable chronic changes. No definite acute intracranial pathology. Electronically signed by Zachary Marshall 01/22/2020 9:32 AM
[2020-01-22 09:54] LABS: CK-MB 10.46 ng/mL (0.0-5.0)
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
[2020-01-22] MEDS: FERROUS SULFATE PO SCH (10:36)
[2020-01-22] MEDS: PROTONIX PO SCH ×2 (10:36→20:41)
[2020-01-22] MEDS: CENTRUM SILVER PO SCH (10:36)
[2020-01-22] MEDS: MIRALAX PO SCH (10:36)
[2020-01-22] MEDS: ZYLOPRIM PO SCH (10:36)
[2020-01-22] MEDS: ICAR-C PLUS PO SCH ×2 (10:36→20:40)
[2020-01-22] MEDS: DEMADEX PO SCH ×2 (10:36→20:40)
[2020-01-22] MEDS: ISORDIL PO SCH ×3 (10:37→17:28)
[2020-01-22] MEDS: ELIQUIS PO SCH ×2 (10:37→20:40)
[2020-01-22] MEDS: FLOMAX PO SCH ×2 (10:37→20:41)
[2020-01-22] MEDS: APRESOLINE PO SCH ×3 (10:37→17:28)
[2020-01-22] MEDS: PLAVIX PO SCH (10:37)
[2020-01-22] MEDS: NORVASC PO SCH (10:37)
[2020-01-22] MEDS: MYCOSTATIN POWDER TOP SCH ×3 (12:31→22:17)
[2020-01-22] MEDS: MIRAPEX PO SCH (12:31)
--- NOTE | 2020-01-22 19:35 | HISTORY AND PHYSICAL ---
ADDENDUM: The patient came in from [facility] for altered mental status. I cannot really get very much out of him. He seems minimally responsive. His vital signs are not bad. He is afebrile. Saturations are okay, but I really do not know why he is so confused. I get a sense he probably has some underlying dementia, but we really do not now. He has heart failure and pulmonary hypertension. He has no white count. Sodium is a little high. His BUN and creatinine are elevated, but I am not entirely sure that is far off baseline. His BUN is about the same as baseline, and his sodium. We may give him just a little bit of fluid, just very slowly. I am not sure if he was hypoglycemic. His sugar was actually fairly low, so we will kind of monitor that. I am going to give him 1 bag of fluid at 50 an hour and see how he does. It could be related to hyponatremia. I do not appreciate any major findings on his cardiac exam, besides just his diminished responsiveness. If he is not much better, he will need a MRI if possible and a Neurology consult on Friday. We will continue to follow. cc: Yunior Laughlin MD
[2020-01-22] MEDS: SEROQUEL PO SCH (20:40)
[2020-01-22] MEDS: LIPITOR PO SCH (20:40)
[2020-01-22] MEDS: D5 1/2 NS 1,000 ML IV SCH (20:41)
[2020-01-22] MEDS: COREG PO SCH (20:48)
[2020-01-23 06:00] LABS: BASO# 0.01 X1000 (0.0-0.2); BASO% 0.2 % (0.0-0.8); EOS# 0.15 X1000 (0.0-0.7); EOS% 3.1 % (0.0-10.0); HEMATOCRIT 27.5 % (42.0-52.0); HEMOGLOBIN 8.5 g/dL (14.0-18.0); LYMPH# 0.91 X1000 (1.2-3.4); MCH 31.5 PG (27-31); MCHC 30.9 g/dL (33-37); MCV 101.9 FL (81-99); MONO# 0.41 X1000 (0.11-0.59); MONO% 8.5 % (1.7-9.3); MPV 12.2 FL (7.4-10.4); NEUT# 3.32 X1000 (1.4-6.5); NEUT% 69.2 % (42.2-75.2); PLT 95 X1000 (130-400); RDW 16.7 % (11.5-14.5)
[2020-01-23 06:17] LABS: ALBUMIN 3.5 g/dL (3.5-5.0); CALCIUM 9.3 mg/dL (8.8-10.2); CREATININE 2.4 mg/dL (0.7-1.2); MAGNESIUM 2.2 mg/dL (1.5-2.7); POTASSIUM 4.3 mmol/L (3.5-5.1); TOTAL BILIRUBIN 0.35 mg/dL (0.20-1.00); TOTAL PROTEIN 7.1 g/dL (6.3-8.3)
[2020-01-23] MEDS: PROTONIX PO SCH ×2 (06:19→21:37)
--- NOTE | 2020-01-23 08:12 | Diag Imaging Result Doc PS360 ---
EXAM: CHEST-PORTABLE INDICATION: sob TECHNIQUE: One view COMPARISON: 01/22/2020 FINDINGS: Cardiomegaly is again noted. There is stable mild pulmonary venous congestion. No new consolidation is identified. IMPRESSION: Essentially stable chest. Electronically signed by Zachary Marshall 01/23/2020 8:10 AM
[2020-01-23] MEDS: MIRAPEX PO SCH (09:03)
[2020-01-23] MEDS: CENTRUM SILVER PO SCH (09:03)
[2020-01-23] MEDS: DEMADEX PO SCH ×2 (09:03→21:37)
[2020-01-23] MEDS: FERROUS SULFATE PO SCH (09:03)
[2020-01-23] MEDS: NORVASC PO SCH (09:03)
[2020-01-23] MEDS: COREG PO SCH ×2 (09:03→21:36)
[2020-01-23] MEDS: ELIQUIS PO SCH ×2 (09:03→21:37)
[2020-01-23] MEDS: PLAVIX PO SCH (09:03)
[2020-01-23] MEDS: ISORDIL PO SCH ×3 (09:04→16:56)
[2020-01-23] MEDS: ZYLOPRIM PO SCH (09:04)
[2020-01-23] MEDS: MIRALAX PO SCH (09:04)
[2020-01-23] MEDS: APRESOLINE PO SCH ×3 (09:04→16:56)
[2020-01-23] MEDS: FLOMAX PO SCH ×2 (09:04→21:36)
[2020-01-23] MEDS: ICAR-C PLUS PO SCH ×2 (09:04→21:37)
[2020-01-23] MEDS: MYCOSTATIN POWDER TOP SCH ×2 (09:33→21:37)
[2020-01-23] MEDS: D5 1/2 NS 1,000 ML IV SCH ×2 (16:56→21:38)
--- NOTE | 2020-01-23 17:19 | PROGRESS NOTE ---
DATE: 01/23/2020 SUBJECTIVE: Patient has no major complaints. OBJECTIVE: Vital signs: Blood pressure is 116/59, heart rate is 98, respiratory rate of 18, temperature 97.4 degrees, 100% saturation on room air. Cardiovascular: Regular rate and rhythm. Pulmonary: Bilateral breath sounds. Clear to auscultation. GI: Soft, nontender, nondistended. Bowel sounds are positive. LABORATORY DATA: White count is 4, hemoglobin and hematocrit 8 and 27, platelets were 95,000, MCV of 102. Sodium is up to 147, BUN and creatinine 70 and 2.4, but that is pretty much close to baseline. PROBLEM LIST: 1. Encephalopathy. This seems completely improved. I mean he is completely normal. He is sitting up. He is eating. His baseline level of function I think is wheelchair bound. He is at [facility] or [facility]hab, but he is at [facility] which, unfortunately, I think is not able to take him back at this time. But that seems fine. 2. Hypothermia. Not sure if this was just because he was out of bed and I think he was naked. So in any case, he seems fine now. 3. Iron deficiency anemia is stable. He is thrombocytopenic for unclear reasons, but that may be a chronic thing. 4. Congestive heart failure, atrial fibrillation. Appears to be compensated. 5. Hypoglycemia. That also seems to be improving. I am going to keep him on this D5 for another day because his sodium is still high, but his mental status is fine. 6. Disposition is going to be a problem. He is from [facility] and I am not sure they are taking their patient's back right now. So we are going to get Social Work to start helping us out with placement. cc: Yunior Laughlin MD
[2020-01-23] MEDS: LIPITOR PO SCH (21:36)
[2020-01-23] MEDS: SEROQUEL PO SCH (21:37)
[2020-01-24] MEDS: PROTONIX PO SCH ×2 (05:59→21:53)
[2020-01-24 06:57] LABS: ALB/GLOB RATIO 0.9; ALBUMIN 3.5 g/dL (3.5-5.0); CALCIUM 9.4 mg/dL (8.8-10.2); CREATININE 2.5 mg/dL (0.7-1.2); MAGNESIUM 2.2 mg/dL (1.5-2.7); POTASSIUM 4.4 mmol/L (3.5-5.1); TOTAL BILIRUBIN 0.38 mg/dL (0.20-1.00); TOTAL PROTEIN 7.4 g/dL (6.3-8.3)
[2020-01-24 07:02] LABS: BASO# 0.01 X1000 (0.0-0.2); BASO% 0.2 % (0.0-0.8); EOS# 0.14 X1000 (0.0-0.7); EOS% 2.9 % (0.0-10.0); HEMATOCRIT 26.8 % (42.0-52.0); HEMOGLOBIN 8.4 g/dL (14.0-18.0); LYMPH# 0.79 X1000 (1.2-3.4); LYMPH% 16.4 % (20.5-51.1); MCH 31.9 PG (27-31); MCHC 31.3 g/dL (33-37); MCV 101.9 FL (81-99); MONO# 0.63 X1000 (0.11-0.59); MONO% 13.1 % (1.7-9.3); NEUT# 3.24 X1000 (1.4-6.5); NEUT% 67.4 % (42.2-75.2); PLT 95 X1000 (130-400); RBC 2.63 XMIL (4.7-6.1); RDW 16.9 % (11.5-14.5); WBC 4.81 X1000 (4.8-10.8)
[2020-01-24] MEDS: MYCOSTATIN POWDER TOP SCH ×2 (08:24→22:06)
[2020-01-24] MEDS: MIRALAX PO SCH (08:25)
[2020-01-24] MEDS: MIRAPEX PO SCH (08:25)
[2020-01-24] MEDS: DEMADEX PO SCH (08:26)
[2020-01-24] MEDS: CENTRUM SILVER PO SCH (08:26)
[2020-01-24] MEDS: NORVASC PO SCH (08:26)
[2020-01-24] MEDS: ZYLOPRIM PO SCH (08:26)
[2020-01-24] MEDS: ELIQUIS PO SCH ×2 (08:26→21:53)
[2020-01-24] MEDS: ISORDIL PO SCH ×3 (08:26→17:36)
[2020-01-24] MEDS: COREG PO SCH ×2 (08:26→21:59)
[2020-01-24] MEDS: FLOMAX PO SCH ×2 (08:26→21:53)
[2020-01-24] MEDS: PLAVIX PO SCH (08:26)
[2020-01-24] MEDS: APRESOLINE PO SCH ×3 (08:26→17:36)
[2020-01-24] MEDS: FERROUS SULFATE PO SCH (08:26)
[2020-01-24] MEDS: ICAR-C PLUS PO SCH ×2 (08:26→21:53)
[2020-01-24] MEDS: D5 1/2 NS 1,000 ML IV SCH (15:37)
--- NOTE | 2020-01-24 18:10 | PROGRESS NOTE ---
DATE: 01/24/2020 SUBJECTIVE: The patient has no major complaints. OBJECTIVE: Vital signs: Blood pressure is 119/57, heart rate 53, respiratory rate 18, temperature 97.6 degrees. Cardiovascular: Regular rate and rhythm. Pulmonary: Bilateral breath sounds clear to auscultation. GI: Soft, nontender, nondistended. Bowel sounds are positive. LABORATORY DATA: White count 4, hemoglobin and hematocrit 8 and 26, platelets 95,000. Basic normal. Creatinine 2.5. PROBLEM LIST: 1. Encephalopathy. That seems to have resolved. 2. Hypothermia. He has also stabilized. 3. Relative bradycardia. Heart rate seems okay. He is on a little bit of Coreg at 6.25. I will probably drop it to 3.125 just to see what his heart rate does, although heart rate in the 50s is probably not the end of the world. 4. Iron deficiency anemia. Stable. 5. Congestive heart failure with history of atrial fibrillation, also stable. 6. Hypoglycemia. I think that is basically resolved. I am going to stop the D5, and we will see how he is doing. 7. Disposition. Pending his clinical status. [facility] a [facility] so we have been unable to place him because of coronavirus associated issues. cc: Yunior Laughlin MD
[2020-01-24] MEDS: LIPITOR PO SCH (21:52)
[2020-01-24] MEDS: SEROQUEL PO SCH (21:52)
[2020-01-25] MEDS: PROTONIX PO SCH ×3 (00:20→20:17)
[2020-01-25] MEDS: COREG PO SCH ×3 (00:21→20:17)
[2020-01-25] MEDS: ELIQUIS PO SCH ×3 (00:22→20:17)
[2020-01-25] MEDS: SEROQUEL PO SCH ×2 (00:22→20:17)
[2020-01-25] MEDS: LIPITOR PO SCH ×2 (00:22→20:17)
[2020-01-25] MEDS: ICAR-C PLUS PO SCH ×3 (00:23→20:17)
[2020-01-25] MEDS: FLOMAX PO SCH ×3 (00:23→20:17)
[2020-01-25] MEDS ORDERED: HALDOL IM ONE (05:04)
[2020-01-25 08:16] LABS: ALB/GLOB RATIO 0.8; ALBUMIN 3.7 g/dL (3.5-5.0); CALCIUM 10.3 mg/dL (8.8-10.2); CREATININE 2.3 mg/dL (0.7-1.2); MAGNESIUM 2.2 mg/dL (1.5-2.7); POTASSIUM 4.7 mmol/L (3.5-5.1); TOTAL BILIRUBIN 0.51 mg/dL (0.20-1.00); TOTAL PROTEIN 8.5 g/dL (6.3-8.3)
[2020-01-25 08:25] LABS: BASO# 0.09 X1000 (0.0-0.2); BASO% 1.4 % (0.0-0.8); EOS# 0.16 X1000 (0.0-0.7); EOS% 2.4 % (0.0-10.0); HEMATOCRIT 31.2 % (42.0-52.0); HEMOGLOBIN 9.9 g/dL (14.0-18.0); IMM GRAN# 0.02 X1000 (0.0-0.04); IMM GRAN% 0.3 % (0.0-0.5); LYMPH# 0.78 X1000 (1.2-3.4); LYMPH% 11.9 % (20.5-51.1); MCH 32.8 PG (27-31); MCHC 31.7 g/dL (33-37); MCV 103.3 FL (81-99); MONO# 0.44 X1000 (0.11-0.59); MONO% 6.7 % (1.7-9.3); NEUT# 5.07 X1000 (1.4-6.5); NEUT% 77.3 % (42.2-75.2); PLT 101 X1000 (130-400); RBC 3.02 XMIL (4.7-6.1); RDW 17.3 % (11.5-14.5); WBC 6.56 X1000 (4.8-10.8)
[2020-01-25] MEDS: ISORDIL PO SCH ×3 (09:56→18:09)
[2020-01-25] MEDS: MIRALAX PO SCH (09:56)
[2020-01-25] MEDS: MIRAPEX PO SCH (09:57)
[2020-01-25] MEDS: FERROUS SULFATE PO SCH (09:57)
[2020-01-25] MEDS: NORVASC PO SCH (09:57)
[2020-01-25] MEDS: ZYLOPRIM PO SCH (09:57)
[2020-01-25] MEDS: CENTRUM SILVER PO SCH (09:58)
[2020-01-25] MEDS: PLAVIX PO SCH (09:58)
[2020-01-25] MEDS: APRESOLINE PO SCH ×3 (09:58→18:08)
[2020-01-25] MEDS: MYCOSTATIN POWDER TOP SCH ×2 (09:59→20:26)
--- NOTE | 2020-01-25 19:05 | PROGRESS NOTE ---
DATE: 01/25/2020 SUBJECTIVE: The patient has no major complaints. OBJECTIVE: Vital signs: Blood pressure 148/53, heart rate of 105, respiratory rate of 19, temperature was 96.2 degrees. Cardiovascular: Regular rate and rhythm. Pulmonary: Bilateral breath sounds. Clear to auscultation. GI: Soft, nontender, nondistended. Bowel sounds are positive. LABORATORIES: H H 9 and 31, BUN and creatinine 63 and 2.3 which is near baseline. PROBLEM LIST: 1. Encephalopathy, which has resolved. Hypothermia, which has also resolved. There was concern for sepsis initially, but there is no source for sepsis. Flu was negative. Blood cultures were negative. He had no evidence of pneumonia. He has not had any issues since, pretty much the 1st 24 hours. He was just kind of altered and found in bed with 1 of his neighbors at [facility] confused. 2. Bradycardia that seems to have stabilized. His heart rate actually jumped up a little bit. It had been in the 50s and now it has jumped up. So, I am going to put him back on his 6.25. He is already on Eliquis. DISPOSITION: We are awaiting I guess for a long-term bed or short-term bed because the patient was at [facility], but they are not accepting patients at the moment because of concurrent issues. Disposition pending secondary bed. He can go at any time. Not really any active inpatient issues. cc: Yunior Laughlin MD
[2020-01-26] MEDS: PROTONIX PO SCH (06:05)
[2020-01-26] MEDS: ICAR-C PLUS PO SCH (08:34)
[2020-01-26] MEDS: ZYLOPRIM PO SCH (08:34)
[2020-01-26] MEDS: APRESOLINE PO SCH ×3 (08:34→17:26)
[2020-01-26] MEDS: ISORDIL PO SCH ×3 (08:34→17:26)
[2020-01-26] MEDS: FERROUS SULFATE PO SCH (08:34)
[2020-01-26] MEDS: CENTRUM SILVER PO SCH (08:34)
[2020-01-26] MEDS: COREG PO SCH (08:34)
[2020-01-26] MEDS: NORVASC PO SCH (08:34)
[2020-01-26] MEDS: PLAVIX PO SCH (08:34)
[2020-01-26] MEDS: ELIQUIS PO SCH (08:35)
[2020-01-26] MEDS: FLOMAX PO SCH (08:35)
[2020-01-26] MEDS: MIRAPEX PO SCH (08:35)
[2020-01-26] MEDS: MIRALAX PO SCH (08:35)
[2020-01-26] MEDS: MYCOSTATIN POWDER TOP SCH (10:52)
--- NOTE | 2020-01-26 11:04 | DISCHARGE SUMMARY ---
ADMISSION DATE: 01/22/2020 DISCHARGE DATE: 01/26/2020 ADMISSION DIAGNOSES: 1. Encephalopathy with underlying dementia. 2. Chronic systolic and diastolic heart failure with ischemic cardiomyopathy. 3. Chronic atrial fibrillation. 4. Coronary artery disease. 5. Diabetes mellitus type 2 with hypoglycemia. 6. Benign prostatic hypertrophy. 7. Pulmonary hypertension. 8. Gastroesophageal reflux disease. 9. History of Parkinson's. 10. Hypothermia. DISCHARGE DIAGNOSES: 1. Encephalopathy, resolved. 2. Hypothermia. 3. Iron deficiency anemia, stable. 4. Congestive heart failure. 5. Atrial fibrillation. 6. Hypoglycemia, improving. DIAGNOSTICS: 1. Chest x-ray revealed cardiomegaly with mild pulmonary venous congestion. 2. CT of the head revealed no definite acute intracranial pathology. 3. Chest x-ray 01/23/2020. Stable chest. Cardiomegaly is again noted. There is stable mild pulmonary venous congestion. No new consolidation. MICROBIOLOGY: 1. Blood cultures x2 revealed no growth. 2. Influenza A and B are negative. HOSPITAL COURSE: Mr. Victor presented from [facility] with altered mental status. He was found to be hypoglycemic and hypothermic. The patient was actually found in his roommate's bed taking his clothes off. Blood cultures were negative. He remained afebrile. Once he was warmed up, temperature has remained 97 throughout the hospitalization. WBC has been within normal limits. Encephalopathy did resolve, and he is back to his baseline. Heart rates have ranged from 49 to 105 throughout the hospitalization. He has been asymptomatic. DISCHARGE EXAMINATION: Vital Signs: Blood pressure 146/70 with a heart rate of 50, respirations 20, and temperature is 98.1 degrees oral with room air saturations 97 to 99%. Cardiovascular: Regular rate and rhythm. S1 and S2 appreciated. Pulmonary: Breath sounds are clear with no increased work of breathing noted. Chest rises and falls symmetric with respiration. Gastrointestinal: Abdomen is soft, nontender, and nondistended with bowel sounds in all 4 quadrants. Skin: Warm and dry. DISCHARGE MEDICATIONS: 1. Torsemide 20 mg 2 tablets p.o. b.i.d. 2. Gabapentin 100 mg 2 capsules t.i.d. 3. Coreg 6.25 b.i.d. 4. Flomax 0.4 p.o. b.i.d. 5. Seroquel 25 mg p.o. at bedtime. 6. MiraLAX 17 g p.o. daily. 7. Protonix 40 mg p.o. b.i.d. 8. Nystatin powder b.i.d. as directed. 9. Centrum Silver 1 p.o. daily. 10. Isordil 40 mg p.o. t.i.d. 11. Icar C 1 p.o. b.i.d. 12. Apresoline 25 mg p.o. t.i.d. 13. Ferrous Sulfate 325 p.o. daily. 14. Plavix 75 mg p.o. daily. 15. Coreg 6.25 p.o. b.i.d. 16. Atorvastatin 20 mg p.o. at bedtime. 17. Eliquis 2.5 p.o. b.i.d. 18. Norvasc 5 mg p.o. daily. 19. Allopurinol 100 mg p.o. daily. 20. Mirapex 1.5 p.o. daily. DISPOSITION: He is being discharged to [place] for long-term care via EMS transport in stable condition. TIME SPENT: This is a greater than 30 minute discharge. Dictated by AFTAB Bowen for Saurabh Reyes MD cc: AFTAB Bowen
[2020-01-26 13:46] VITALS: BP 106/75
== END 2020-01-26 18:12 | DRG 637 ==
LOC: ED 04:21 → 2N 09:10 → SUATTDRO 09:10 → 1N 01-24 09:02
PROVIDERS: ATTEND Internal Medicine